=== PATIENT | female | born 1955 | race Caucasian/White ===

== ENCOUNTER 2019-02-01 12:35 | Inpatient (IN) | payer OTHER, SELFPAY ==
[2019-02-01] VITALS (22 sets, daily range): BP systolic 90–113; BP diastolic 51–78; PULSE 74–87; RESP 16–24; TEMP 36.3–36.9; O2SAT 79–95; BMI 26.6; BMI 25.7
--- NOTE | 2019-02-01 13:08 | EKG12_ITS ---
Test Reason : Blood Pressure : / mmHG Vent. Rate : 083 BPM Atrial Rate : 083 BPM P-R Int : 172 ms QRS Dur : 148 ms QT Int : 426 ms P-R-T Axes : 074 062 070 degrees QTc Int : 500 ms Normal sinus rhythm Right bundle branch block Abnormal ECG Confirmed by RUPESH HUI, RK ([id number]), video effects editor LUCAS ISSA ([id number]) on 02/04/2019 9:24:48 AM Referred By: James Wayne Confirmed By:RK GODDARD MD
--- NOTE | 2019-02-01 13:10 | RAD_ITS ---
STUDY: X-RAY CHEST REASON FOR EXAM: Female, 64 years old. SOB TECHNIQUE: Single AP portable view of the chest. COMPARISON: CT scan dated 03/09/2009. FINDINGS: Cardiac silhouette unremarkable. Pulmonary vascularity unremarkable. Aorta calcified. Right mid/lower lung airspace disease. No pleural effusions. Upper abdomen unremarkable. Osseous structures demineralized with degenerative features. No pneumothorax. RAD/Chest 1 View (Portable) IMPRESSION: Right mid/lower lung airspace disease (suspected infection; follow-up after treatment) Electronically Signed: Saul Parada DO at 13:36 EST Tel , Service support ,
[2019-02-01] MEDS: Ipratropium/Albuterol Sulfate 3 ML AMPUL.NEB INHALATION ×3 (13:21→23:29)
[2019-02-01] MEDS: MethylPREDNISolone 125 MG/2 ML Vial IV (13:35)
[2019-02-01] MEDS: Albuterol 2.5 MG/3 ML VIAL.NEB. INHALATION ×2 (13:40→13:41)
[2019-02-01 13:53] LABS: Absolute Lymphocyte Count 0.45 X10^3/uL (0.83-4.51); Absolute Neutrophil Count 13.7 X10^3/uL (2.0-7.7); Basophil# 0.04 X10^3/uL; Basophil% 0.3 % (0-1); Eosinophil# 0.09 X10^3/uL; Eosinophils% 0.6 % (0-5); Hematocrit 48.1 % (37-47); Lymphocyte # 0.45 X10^3/ul (4.0); Mean Corp Hgb Conc 33.3 g/dL (32-36); Mean Corpuscular Hgb 33.5 pg (27.0-32.0); Mean Corpuscular Volume 100.6 fL (81-99); Mean Platelet Vol. 10.8 fl (6.2-12.0); Monocyte# 0.53 X10^3/uL; Monocyte% 3.6 % (0-10); NRBC Flagged by Analyzer 0 % (0-5); Neutrophil # 13.74 X10^3/uL (2.7-7.7); POSITIVE DIFFERENTIAL YES; Platelet Count 146 K/mm3 (150-450); RBC Distribution Width CV 12.1 % (11.6-14.6); RBC Distribution Width SD 45.5 fl (35.1-43.9); Red Blood Count 4.78 M/mm3 (4.2-5.4); White Blood Count 14.9 K/mm3 (4.4-11.0)
[2019-02-01 14:09] LABS: Anion Gap 5 (5-15); BUN 19 mg/dL (7-18); BUN/Creat Ratio 23.3 RATIO (10-20); Calcium,Total 9.5 mg/dL (8.5-10.1); Chloride 93 mmol/L (98-107); Creatinine, Serum 0.82 mg/dL (0.55-1.02); EST Glomerular Filtration Rate 76 mL/min (>60); Est Glom Filt Rate - Afr Amer 91 mL/min (>60); Glucose 121 mg/dL (74-106); Potassium 2.8 mmol/L (3.5-5.1); Sodium Level 135 mmol/L (136-145)
[2019-02-01 14:10] LABS: Differential Indicated SCAN CRITERIA MET
[2019-02-01 14:19] LABS: Differential Comment SCANNED
--- NOTE | 2019-02-01 15:27 | ED.VISSUMM ---
- ER Visit Summary Date of Service: 02/01/19 Chief Complaint: Cough, short of breath and hypoxic the urgent care History of Present Illness: The patient is a 64 F history of COPD and hypertension. Not on home oxygen. Patient states has been short of breath for the last 5 days with a nonproductive cough. No fever or chills. No chest pain. No hemoptysis. She was seen in urgent care earlier today had a pulse ox between 70 and 80 and they sent her to the emergency department to be evaluated. They did treat her with albuterol and Decadron there. Physical Examination: Initial while vital signs blood pressure 104/78 temperature 98.4 heart rate 86 respirations 18 pulse ox 79% on room air consistent with hypoxia. HEENT exam unremarkable. Moist mucous membranes. Neck nontender no JVD, no lymphadenopathy. Lungs prolonged expiratory phase throughout. Wheezing throughout. Primarily expiratory and diminished in the right base. Heart regular rhythm no murmur rate about 85. Abdomen soft nontender normal bowel sounds without peritoneal signs. Patient is moving all 4 extremities. Calves are nontender without edema or cords. Neurologically she is awake alert with no focal motor deficits. Test Results: Chest x-ray portable 1 view shows a right lower lobe pneumonia. EKG sinus rhythm rate 83 with no acute signs of ischemia. Also a right bundle branch block. White count elevated at 14.9. Hemoglobin 16 hematocrit 48. No bands. Electrolytes sodium 135. Potassium was 5.8. BUN 19 creatinine 0.8. Gap of 5. Troponin 0 0.042. Due to the patient's pneumonia on chest x-ray I added a lactic acid. Blood cultures x2. She will be started on IV Rocephin and Zithromax. And given 2 L of normal saline. Emergency Department Course and Treatment: Patient has an obvious exacerbation of COPD. After chest x-ray shows a right lower lobe pneumonia also. Blood cultures and lactic acid also be obtained for consideration of sepsis. Treatment Plan: 2 L normal saline. Blood cultures. IV Rocephin and IV Zithromax. Hospitalist on page for admission. You also be treated with IV potassium and p.o. potassium. Disposition: Admission Impression: Acute right lower lobe pneumonia Acute exacerbation of COPD Acute hypoxia. Acute hypokalemia This note was generated with [employer] software. It may contain incorrect words, spelling, and punctuation that were not noted in review of the chart prior to signing ED Disposition - Plan for ED Patient: Referrals: Aki Patterson MD [Primary Care Provider] -
[2019-02-01] MEDS: Ceftriaxone 1 GM/50 ML BAG IV (16:02)
[2019-02-01] MEDS: 0.9% Normal Saline 1,000 ML 999 ML IV (16:02)
[2019-02-01] MEDS: Potassium Chloride 10mEq/100mL 10 MEQ/100 ML IV.SOLN. 100 MEQ IV BOLUS ×2 (16:03→17:11)
--- NOTE | 2019-02-01 16:50 | HP.PCM_ITS ---
History of Present Illness Date of Admission: 02/01/19 Chief Complaint: Shortness of breath The patient is a 64 year old F with a PMH as below who presents with shortness of breath and a productive cough since . She says that she is just been feeling cold and feverish and coughing and not eating or drinking very well and just overall has not felt well. She presented to the ER today because she went to an urgent care since she had not been getting any better and they found that she was hypoxic in the 70s. They sent her to the ER and she was placed on oxygen. She is not on any home oxygen despite having COPD. She is feeling a little bit better today after fluids and antibiotics. She was also found to have a potassium of 2.8 and has been replaced. She does have a leukocytosis of 14.9 and at 1 point she was tachypneic to 20 therefore meeting criteria for sepsis. She denies any lightheadedness, or dizziness. There is been no sick contacts that she is aware of. Lactic acid of 1.0 Past Medical History Allergies No Known Allergies Allergy (Verified 02/01/19 12:42) Home Medications: Ambulatory Orders Medication Instructions Recorded Albuterol Sulfate [Ventolin Hfa] 1 - 2 puff INHALATION Q4H PRN 02/01/19 Carvedilol 12.5 mg PO BID 02/01/19 Ipratropium/Albuterol Sulfate 3 ml INHALATION Q6H.RT PRN 02/01/19 [Duoneb] Lisinopril/Hydrochlorothiazide 1 tab PO DAILY 02/01/19 [Lisinopril-Hctz 20-25 mg Tab] Lovastatin 40 mg PO DAILY 02/01/19 Surgical History: cholecystectomy, hysterectomy Smoking Status: Light Smoker (<10/day) Tobacco Use: Cigarettes Alcohol: None Drugs: None - *Family History Maternal History Items: Heart Disease Paternal History Items: Unknown Review of Systems Constitutional: Reports: Chills, Fever, Fatigue HEENT: Denies: Head Aches, Sinus Congestion, Sinus Drainage Cardiovascular: Denies: Chest Pain, Palpitations Respiratory: Reports: Cough, Sputum production. Denies: Shortness of breath at rest Gastrointestinal: Denies: Abdominal Pain, Nausea, Vomiting Genitourinary: Denies: Dysuria Musculoskeletal: Denies: Joint Pain, Joint Tenderness Skin: Denies: Rash, Wounds Neurological: Denies: Numbness, Tingling, Focal weakness Psychiatric: Denies: Anxiety, Depression Hematologic/ Lymphatic: Denies: Easy Bruising, Easy Bleeding VTE Information - Inpt Only VTE Present on Admission: No - Physical Exam Vitals/I&O's: Vital Signs Temp Pulse Resp BP Pulse Ox 98.4 F 79 22 H 104/63 91 02/01/19 16:30 02/01/19 16:30 02/01/19 16:30 02/01/19 16:30 02/01/19 16:30 Oxygen Flow Rate (L/min) 5 Oxygen Delivery Method Room Air Weight: 131 lb 9.855 oz Body Mass Index (BMI) 25.7 Intake and Output for Last 24 Hours 01/30/19 01/31/19 02/01/19 23:59 23:59 23:59 Intake Total 666.05 / 666.05 Balance 666.05 / 666.05 General: Alert, Oriented x3, Cooperative, No apparent distress HEENT: Atraumatic, PERRLA, EOMI, Normocephalic Oral: Dry Mucosa Neck: Supple, No JVD Lungs: Normal air movement, No rhonchi, No rales, Diminished - In the right lung base, Wheezes - Slight wheezing on the left Cardiovascular: Regular rate, Regular Rhythm, Normal S1, Normal S2, No murmurs Abdomen: Soft, Non Tender, Non-Distended, No Hepato-splenomegaly Extremities: No edema, Capillary Refill Less than 3 Seconds Skin: No rashes, No breakdown Neurological: Neuro grossly intact, Sensory exam intact to light touch and pain Psych/Mental Status: Normal Affect, Appropriate Laboratory Results 02/01/19 13:35: WBC 14.9 H, RBC 4.78, Hgb 16.0 H, Hct 48.1 H, MCV 100.6 H, MCH 33.5 H, MCHC 33.3, RDW Std Deviation 45.5 H, RDW Coeff of [place] 12.1, Plt Count 146 L, MPV 10.8, Immature Gran % (Auto) 0.500, Neut % (Auto) 92.0 H, Lymph % (Auto) 3.0 L, [place] % (Auto) 3.6, Eos % (Auto) 0.6, Baso % (Auto) 0.3, Absolute Neuts (auto) 13.7 H, Absolute Lymphs (auto) 0.45 L, Nucleated RBC % 0, Differential Comment SCANNED 02/01/19 13:35: Sodium 135 L, Potassium 2.8 L, Chloride 93 L, Carbon Dioxide 37.0 H, Anion Gap 5, BUN 19 H, Creatinine 0.82, Estim Creat Clear Calc 51.10, Est GFR (MDRD) Af Amer 91, Est GFR (MDRD) Non-Af 76, BUN/Creatinine Ratio 23.3 H , Glucose 121 H, Calcium 9.5, Troponin I 0.042 02/01/19 15:43: Lactic Acid 1.0 Current Medications Acetaminophen (Tylenol) 650 mg PO Q6H PRN PRN PRN Reason: Pain Score 1-3/Temp > 100.7 F Albuterol/Ipratropium (Duoneb) 3 ml INHALATION Q4HWA.RT [facility] Enoxaparin Sodium (Lovenox) 40 mg SC DAILY [facility] Glucagon () 1 mg IM .X1 PRN PRN Reason: Hypoglycemia Potassium Chloride () 10 meq in 100 mls @ 100 mls/hr IV BOLUS Q1H [facility] Stop: 02/01/19 17:44 Last Admin: 02/01/19 16:03 Dose: 100 mls/hr Documented by: Sodium Chloride () 1,000 mls @ 100 mls/hr IV .Q10H [facility] Ceftriaxone Sodium 2 gm/ (Sodium Chloride) 50 mls @ 100 mls/hr IV Q24 [facility] Sodium Chloride () 250 mls @ 15 mls/hr IV .[id number] PRN PRN Reason: Saline Flush Sodium Chloride () 250 mls @ 15 mls/hr IV .[id number] PRN PRN Reason: Additional IVPB Infusion Azithromycin 500 mg/ Dextrose 255 mls @ 250 mls/hr IV Q24 [facility] Dextrose (Dextrose 10%-Water) 250 mls @ 999 mls/hr IV .Q16M PRN; Protocol PRN Reason: HYPOGLYCEMIA Influenza Virus Vaccine Quadrival (Flucelvax /Fluzone ) 0.5 ml IM .ONCE ONE Stop: 02/02/19 10:01 Prednisone () 40 mg PO DAILY@0800 [facility] Sodium Chloride () 10 - 40 ml IV UD PRN PRN Reason: SALINE FLUSH Assessment/Plan 1. Sepsis secondary to right lower lobe pneumonia or gram-positive organism/acute hypoxic respiratory failure secondary to pneumonia and possible COPD exacerbation -Continue with Rocephin and azithromycin -Sputum cultures and blood cultures are pending -Legionella and strep urine antigens are also pending -He did receive steroids in the ER and will place her on prednisone daily -Continue with duo nebs 2. HTN/HLD -Blood pressures been on the low end and will hold her blood pressure medications -Continue with lovastatin 3. Hypokalemia -Potassium was 2.8 on admission, will check magnesium and phosphorus in the morning -She was given 60 mEq p.o. in the ER as well as 20 mEq IV -We will recheck in a.m. VTE: Lovenox Code Visit Inpatient E&M: 12296 Init Hosp L3
[2019-02-01] MEDS: 0.9% Normal Saline 1,000 ML 100 ML IV (17:11)
[2019-02-02] VITALS (17 sets, daily range): BP systolic 99–127; BP diastolic 54–76; PULSE 75–90; RESP 18–20; TEMP 36.3–36.7; O2SAT 90–96
[2019-02-02] MEDS: 0.9% Normal Saline 1,000 ML 100 ML IV ×2 (03:26→15:18)
[2019-02-02] MEDS: Ipratropium/Albuterol Sulfate 3 ML AMPUL.NEB INHALATION ×6 (03:59→23:04)
[2019-02-02 05:18] LABS: Absolute Lymphocyte Count 0.44 X10^3/uL (0.83-4.51); Absolute Neutrophil Count 11.4 X10^3/uL (2.0-7.7); Basophil# 0.02 X10^3/uL; Basophil% 0.2 % (0-1); Differential Indicated SCAN CRITERIA MET; Eosinophil# 0.08 X10^3/uL; Eosinophils% 0.7 % (0-5); Hematocrit 44.2 % (37-47); Hemoglobin 15.1 g/dL (12.0-15.0); Lymphocyte # 0.44 X10^3/ul (4.0); Lymphocyte % 3.6 % (19-41); Mean Corp Hgb Conc 34.2 g/dL (32-36); Mean Corpuscular Hgb 35.3 pg (27.0-32.0); Mean Corpuscular Volume 103.3 fL (81-99); Monocyte# 0.23 X10^3/uL; Monocyte% 1.9 % (0-10); NRBC Flagged by Analyzer 0 % (0-5); Neutrophil # 11.36 X10^3/uL (2.7-7.7); Neutrophil % 92.9 % (47-70); POSITIVE DIFFERENTIAL YES; Platelet Count 158 K/mm3 (150-450); RBC Distribution Width CV 12.3 % (11.6-14.6); RBC Distribution Width SD 45.8 fl (35.1-43.9); Red Blood Count 4.28 M/mm3 (4.2-5.4); White Blood Count 12.2 K/mm3 (4.4-11.0)
[2019-02-02 05:38] LABS: Anion Gap 2 (5-15); BUN 27 mg/dL (7-18); BUN/Creat Ratio 29.7 RATIO (10-20); Chloride 100 mmol/L (98-107); Creatinine, Serum 0.91 mg/dL (0.55-1.02); EST Glomerular Filtration Rate 67 mL/min (>60); Est Glom Filt Rate - Afr Amer 81 mL/min (>60); Estimated Creatinine Clearance 46.04 ml/min; Glucose 199 mg/dL (74-106); Magnesium 1.6 mg/dL (1.6-2.6); Potassium 3.4 mmol/L (3.5-5.1); Sodium Level 137 mmol/L (136-145)
[2019-02-02 05:41] LABS: Phosphorus 2.4 mg/dL (2.5-4.9)
[2019-02-02 06:32] LABS: Differential Comment SCANNED
[2019-02-02] MEDS: predniSONE 20 MG Tablet 40 MG PO (07:25)
[2019-02-02] MEDS: Enoxaparin 40 MG/0.4 ML Syringe SC (08:19)
--- NOTE | 2019-02-02 10:34 | PN_ITS ---
Subjective: Feeling a little bit better, still on oxygen Vitals/I&O's: Vital Signs Temp Pulse Resp BP Pulse Ox 98.0 F 75 18 104/63 92 02/02/19 09:30 02/02/19 09:30 02/02/19 09:30 02/02/19 09:30 02/02/19 09:30 Oxygen Flow Rate (L/min) 4.5 Oxygen Delivery Method Nasal Cannula Weight: 131 lb 9.855 oz Body Mass Index (BMI) 25.7 Intake and Output for Last 24 Hours 01/31/19 02/01/19 02/02/19 23:59 23:59 23:59 Intake Total 1321.05 / 1471.05 1304 / 1304 Output Total 300 / 300 Balance 1321.05 / 1471.05 1004 / 1004 General: Alert, Oriented x3, Cooperative, No apparent distress HEENT: Atraumatic, PERRLA, EOMI, Normocephalic Oral: Moist mucosa Neck: Supple, No JVD Lungs: Normal air movement, No rhonchi, No rales, Diminished - In the right lung base, Wheezes improved Cardiovascular: Regular rate, Regular Rhythm, Normal S1, Normal S2, No murmurs Abdomen: Soft, Non Tender, Non-Distended, No Hepato-splenomegaly Extremities: No edema, Capillary Refill Less than 3 Seconds Skin: No rashes, No breakdown Neurological: Neuro grossly intact, Sensory exam intact to light touch and pain Psych/Mental Status: Normal Affect, Appropriate Microbiology Past 72 Hours 02/01/19 15:34 Blood Culture (Wb) - Left Forearm Blood Culture - Preliminary 02/01/19 17:10 Urine, Clean Catch Streptococcus pneumoniae Antigen (M - Final 02/01/19 17:10 Urine, Clean Catch Legionella Antigen - Final Laboratory Results 02/01/19 13:35: WBC 14.9 H, RBC 4.78, Hgb 16.0 H, Hct 48.1 H, MCV 100.6 H, MCH 33.5 H, MCHC 33.3, RDW Std Deviation 45.5 H, RDW Coeff of [place] 12.1, Plt Count 146 L, MPV 10.8, Immature Gran % (Auto) 0.500, Neut % (Auto) 92.0 H, Lymph % (Auto) 3.0 L, [place] % (Auto) 3.6, Eos % (Auto) 0.6, Baso % (Auto) 0.3, Absolute Neuts (auto) 13.7 H, Absolute Lymphs (auto) 0.45 L, Nucleated RBC % 0, Differential Comment SCANNED 02/01/19 13:35: Sodium 135 L, Potassium 2.8 L, Chloride 93 L, Carbon Dioxide 37.0 H, Anion Gap 5, BUN 19 H, Creatinine 0.82, Estim Creat Clear Calc 51.10, Est GFR (MDRD) Af Amer 91, Est GFR (MDRD) Non-Af 76, BUN/Creatinine Ratio 23.3 H , Glucose 121 H, Calcium 9.5, Troponin I 0.042 02/01/19 15:43: Lactic Acid 1.0 02/02/19 04:58: Sodium 137, Potassium 3.4 L, Chloride 100, Carbon Dioxide 35.0 H , Anion Gap 2 L, BUN 27 H, Creatinine 0.91, Estim Creat Clear Calc 46.04, Est GFR (MDRD) Af Amer 81, Est GFR (MDRD) Non-Af 67, BUN/Creatinine Ratio 29.7 H, Glucose 199 H, Calcium 9.0, Magnesium 1.6 02/02/19 04:58: WBC 12.2 H, RBC 4.28, Hgb 15.1 H, Hct 44.2, MCV 103.3 H, MCH 35.3 H, MCHC 34.2, RDW Std Deviation 45.8 H, RDW Coeff of [place] 12.3, Plt Count 158, MPV 11.0, Immature Gran % (Auto) 0.700, Neut % (Auto) 92.9 H, Lymph % (Auto) 3.6 L, [place] % (Auto) 1.9, Eos % (Auto) 0.7, Baso % (Auto) 0.2, Absolute Neuts (auto) 11.4 H, Absolute Lymphs (auto) 0.44 L, Nucleated RBC % 0, Differential Comment SCANNED 02/02/19 04:58: Phosphorus 2.4 L Current Medications Acetaminophen (Tylenol) 650 mg PO Q6H PRN PRN PRN Reason: Pain Score 1-3/Temp > 100.7 F Albuterol/Ipratropium (Duoneb) 3 ml INHALATION Q4HWA.RT [facility] Last Admin: 02/02/19 06:52 Dose: 3 ml Documented by: Atorvastatin Calcium (Lipitor) 10 mg PO QHS [facility] Enoxaparin Sodium (Lovenox) 40 mg SC DAILY [facility] Last Admin: 02/02/19 08:19 Dose: 40 mg Documented by: Glucagon () 1 mg IM .X1 PRN PRN Reason: Hypoglycemia Sodium Chloride () 1,000 mls @ 100 mls/hr IV .Q10H [facility] Last Admin: 02/02/19 03:26 Dose: 100 mls/hr Documented by: Ceftriaxone Sodium 2 gm/ (Sodium Chloride) 50 mls @ 100 mls/hr IV Q24 [facility] Last Infusion: 02/02/19 10:25 Dose: Infused Documented by: Sodium Chloride () 250 mls @ 15 mls/hr IV .[id number] PRN PRN Reason: Saline Flush Sodium Chloride () 250 mls @ 15 mls/hr IV .[id number] PRN PRN Reason: Additional IVPB Infusion Azithromycin 500 mg/ Dextrose 255 mls @ 250 mls/hr IV Q24 [facility] Last Admin: 02/02/19 09:36 Dose: 250 mls/hr Documented by: Dextrose (Dextrose 10%-Water) 250 mls @ 999 mls/hr IV .Q16M PRN; Protocol PRN Reason: HYPOGLYCEMIA Potassium Phosphate 30 mm/ (Sodium Chloride) 260 mls @ 42 mls/hr IV X1 ONE Stop: 02/02/19 14:41 Last Admin: 02/02/19 08:38 Dose: 42 mls/hr Documented by: Prednisone () 40 mg PO DAILY@0800 [facility] Last Admin: 02/02/19 07:25 Dose: 40 mg Documented by: Sodium Chloride () 10 - 40 ml IV UD PRN PRN Reason: SALINE FLUSH STROKE Vital Signs/Narrative: Vital Signs Temp Pulse Resp BP Pulse Ox 02/02/19 09:30 98.0 F 75 18 104/63 92 02/02/19 07:22 94 02/02/19 06:52 82 20 H 91 02/02/19 06:46 90 Medical Necessity - Tobacco Use Smoking Status: Light Smoker (<10/day) Tobacco Use: Cigarettes Assessment/Plan 1. Sepsis secondary to right lower lobe pneumonia or gram-positive organism/acute hypoxic respiratory failure secondary to pneumonia and possible COPD exacerbation -Continue with Rocephin and azithromycin -Sputum cultures and blood cultures are pending -Legionella and strep urine antigens are negative -She did receive steroids in the ER and will place her on prednisone daily -Continue with nicole goel 2. HTN/HLD -Blood pressures been on the low end and will hold her blood pressure medications -Continue with lovastatin 3. Hypokalemia -Potassium was 2.8 on admission, will check magnesium and phosphorus in the morning -She was given 60 mEq p.o. in the ER as well as 20 mEq IV -We will replace magnesium as well as potassium and phosphorus today DVT: Lovenox Code Visit Inpatient E&M: 61052 Subs Hosp L2
--- NOTE | 2019-02-02 11:06 | CASEMGMT ---
RN CM Assessment Presentation: Intro role of CM and purpose of RN CM assessment to patient in room. Pt is awake, alert and able to participate in assessment. Daughter is also in room. Demographics, PCP and Pharmacy verified. Per patient she lives at home with her daughter. Daughter is not able to drive, but is able to assist pt if needed. Pt plans to return home on dc. PCP: Dr. Gilliland Specialists: Preferred Pharmacy[facility] Insurance: [employer] Prescription Benefit: yes LNOK: Lauren Dockery, Friend Living Arrangements: lives independently with daughter. No needs identified. Transportation: drives DME: nebulizer. If Home oxygen is needed, pt will use [facility] (see green sheet front of chart) HHC: none Patient DC goals: Home DC PLAN: Home. If continues on oxygen, may need Home Oxygen testing prior to dc. Kary OROZCON RN ACM
[2019-02-02] MEDS: Atorvastatin Calcium 10 MG Tablet PO (21:39)
[2019-02-03] VITALS (15 sets, daily range): BP systolic 118–140; BP diastolic 64–82; PULSE 71–104; RESP 16–20; TEMP 36.7–37.2; O2SAT 92–98
[2019-02-03] MEDS: 0.9% Normal Saline 1,000 ML 100 ML IV (01:01)
[2019-02-03 06:42] LABS: Absolute Lymphocyte Count 1.17 X10^3/uL (0.83-4.51); Basophil# 0.04 X10^3/uL; Basophil% 0.3 % (0-1); Eosinophil# 0.02 X10^3/uL; Eosinophils% 0.2 % (0-5); Hematocrit 44.8 % (37-47); Hemoglobin 14.5 g/dL (12.0-15.0); Lymphocyte # 1.17 X10^3/ul (4.0); Lymphocyte % 8.9 % (19-41); Mean Corp Hgb Conc 32.4 g/dL (32-36); Mean Corpuscular Hgb 34.2 pg (27.0-32.0); Mean Corpuscular Volume 105.7 fL (81-99); Mean Platelet Vol. 10.6 fl (6.2-12.0); Monocyte% 4.6 % (0-10); NRBC Flagged by Analyzer 0 % (0-5); Neutrophil # 11.03 X10^3/uL (2.7-7.7); Neutrophil % 84.3 % (47-70); Platelet Count 151 K/mm3 (150-450); RBC Distribution Width CV 12.3 % (11.6-14.6); Red Blood Count 4.24 M/mm3 (4.2-5.4); White Blood Count 13.1 K/mm3 (4.4-11.0)
[2019-02-03] MEDS: Ipratropium/Albuterol Sulfate 3 ML AMPUL.NEB INHALATION ×4 (07:02→19:21)
[2019-02-03 07:03] LABS: Anion Gap 3 (5-15); BUN 18 mg/dL (7-18); BUN/Creat Ratio 31.1 RATIO (10-20); Calcium,Total 8.3 mg/dL (8.5-10.1); Chloride 106 mmol/L (98-107); Creatinine, Serum 0.58 mg/dL (0.55-1.02); EST Glomerular Filtration Rate 112 mL/min (>60); Est Glom Filt Rate - Afr Amer 136 mL/min (>60); Estimated Creatinine Clearance 72.24 ml/min; Glucose 88 mg/dL (74-106); Potassium 3.8 mmol/L (3.5-5.1); Sodium Level 142 mmol/L (136-145)
[2019-02-03] MEDS: predniSONE 20 MG Tablet 40 MG PO (08:17)
[2019-02-03] MEDS: Enoxaparin 40 MG/0.4 ML Syringe SC (09:38)
--- NOTE | 2019-02-03 10:42 | PCM.PN.HOSP ---
Subjective: Breathing better than she did when she came in, no issues overnight. Vitals/I&O's: Vital Signs Temp Pulse Resp BP Pulse Ox 98.6 F 71 16 128/64 H 93 02/03/19 05:37 02/03/19 07:02 02/03/19 07:02 02/03/19 05:37 02/03/19 07:02 Oxygen Flow Rate (L/min) 4.5 Oxygen Delivery Method Nasal Cannula Weight: 131 lb 9.855 oz Body Mass Index (BMI) 25.7 Intake and Output for Last 24 Hours 02/01/19 02/02/19 02/03/19 23:59 23:59 23:59 Intake Total 1321.05 / 1471.05 3479 / 3779 1621.67 / 1621.67 Output Total 300 / 300 Balance 1321.05 / 1471.05 3179 / 3479 1621.67 / 1621.67 General: Alert, Oriented x3, Cooperative, No apparent distress HEENT: Atraumatic, PERRLA, EOMI, Normocephalic Oral: Moist mucosa Neck: Supple, No JVD Lungs: Normal air movement, No rhonchi, No rales, Diminished - In the right lung base, Wheezes improved Cardiovascular: Regular rate, Regular Rhythm, Normal S1, Normal S2, No murmurs Abdomen: Soft, Non Tender, Non-Distended, No Hepato-splenomegaly Extremities: No edema, Capillary Refill Less than 3 Seconds Skin: No rashes, No breakdown Neurological: Neuro grossly intact, Sensory exam intact to light touch and pain Psych/Mental Status: Normal Affect, Appropriate Microbiology Past 72 Hours 02/02/19 19:12 Sputum, Expectorated/Coughed Respiratory Culture - Preliminary Culture exhibits no growth. 02/01/19 15:34 Blood Culture (Wb) - Left Forearm Blood Culture - Preliminary 02/01/19 17:10 Urine, Clean Catch Streptococcus pneumoniae Antigen (M - Final 02/01/19 17:10 Urine, Clean Catch Legionella Antigen - Final Laboratory Results 02/02/19 14:00: Troponin I < 0.015 02/03/19 05:26: WBC 13.1 H, RBC 4.24, Hgb 14.5, Hct 44.8, MCV 105.7 H, MCH 34.2 H, MCHC 32.4, RDW Std Deviation 48.0 H, RDW Coeff of [place] 12.3, Plt Count 151, MPV 10.6, Immature Gran % (Auto) 1.700 H, Neut % (Auto) 84.3 H, Lymph % (Auto) 8.9 L, [place] % (Auto) 4.6, Eos % (Auto) 0.2, Baso % (Auto) 0.3, Absolute Neuts (auto) 11.0 H, Absolute Lymphs (auto) 1.17, Nucleated RBC % 0 02/03/19 05:26: Sodium 142, Potassium 3.8, Chloride 106, Carbon Dioxide 33.0 H, Anion Gap 3 L, BUN 18, Creatinine 0.58, Estim Creat Clear Calc 72.24, Est GFR (MDRD) Af Amer 136, Est GFR (MDRD) Non-Af 112, BUN/Creatinine Ratio 31.1 H, Glucose 88, Calcium 8.3 L Current Medications Acetaminophen (Tylenol) 650 mg PO Q6H PRN PRN PRN Reason: Pain Score 1-3/Temp > 100.7 F Albuterol/Ipratropium (Duoneb) 3 ml INHALATION Q4HWA.RT [facility] Last Admin: 02/03/19 07:02 Dose: 3 ml Documented by: Atorvastatin Calcium (Lipitor) 10 mg PO QHS [facility] Last Admin: 02/02/19 21:39 Dose: 10 mg Documented by: Enoxaparin Sodium (Lovenox) 40 mg SC DAILY [facility] Last Admin: 02/03/19 09:38 Dose: 40 mg Documented by: Glucagon () 1 mg IM .X1 PRN PRN Reason: Hypoglycemia Ceftriaxone Sodium 2 gm/ (Sodium Chloride) 50 mls @ 100 mls/hr IV Q24 [facility] Last Infusion: 02/03/19 10:09 Dose: Infused Documented by: Sodium Chloride () 250 mls @ 15 mls/hr IV .[id number] PRN PRN Reason: Saline Flush Sodium Chloride () 250 mls @ 15 mls/hr IV .[id number] PRN PRN Reason: Additional IVPB Infusion Azithromycin 500 mg/ Dextrose 255 mls @ 250 mls/hr IV Q24 [facility] Last Admin: 02/03/19 10:08 Dose: 250 mls/hr Documented by: Dextrose (Dextrose 10%-Water) 250 mls @ 999 mls/hr IV .Q16M PRN; Protocol PRN Reason: HYPOGLYCEMIA Prednisone () 40 mg PO DAILY@0800 [facility] Last Admin: 02/03/19 08:17 Dose: 40 mg Documented by: Sodium Chloride () 10 - 40 ml IV UD PRN PRN Reason: SALINE FLUSH STROKE Vital Signs/Narrative: Vital Signs Pulse Resp Pulse Ox 02/03/19 07:02 71 16 93 Medical Necessity - Tobacco Use Smoking Status: Light Smoker (<10/day) Tobacco Use: Cigarettes Assessment/Plan 1. Sepsis secondary to right lower lobe pneumonia from gram-positive organism/acute hypoxic respiratory failure secondary to pneumonia and possible COPD exacerbation -Continue with Rocephin and azithromycin -Sputum cultures and blood cultures are pending, though preliminarily negative -Legionella and strep urine antigens are negative -She did receive steroids in the ER and will place her on prednisone daily -Continue with duo nebs -Continue with incentive spirometer and wean oxygen as able 2. HTN/HLD -Blood pressures been on the low end and will hold her blood pressure medications -Continue with lovastatin 3. Hypokalemia -Potassium was 2.8 on admission, now 3.8 -We will continue to monitor DVT: Lovenox Code Visit Inpatient E&M: 75719 Subs Hosp L2
[2019-02-03] MEDS: Acetaminophen 325 MG Tablet 650 MG PO (22:29)
[2019-02-03] MEDS: Atorvastatin Calcium 10 MG Tablet PO (22:29)
[2019-02-04] VITALS (16 sets, daily range): BP systolic 126–163; BP diastolic 70–84; PULSE 76–101; RESP 16–20; TEMP 36.4–37.1; O2SAT 80–96
[2019-02-04 06:18] LABS: BUN 19 mg/dL (7-18); Creatinine, Serum 0.65 mg/dL (0.55-1.02); EST Glomerular Filtration Rate 99 mL/min (>60); Estimated Creatinine Clearance 64.46 ml/min; Glucose 81 mg/dL (74-106)
[2019-02-04 06:19] LABS: Anion Gap 3 (5-15); BUN/Creat Ratio 29.4 RATIO (10-20); Calcium,Total 8.5 mg/dL (8.5-10.1); Chloride 106 mmol/L (98-107); Est Glom Filt Rate - Afr Amer 119 mL/min (>60); Potassium 3.8 mmol/L (3.5-5.1); Sodium Level 144 mmol/L (136-145)
[2019-02-04] MEDS: Ipratropium/Albuterol Sulfate 3 ML AMPUL.NEB INHALATION ×4 (06:52→19:02)
[2019-02-04] MEDS: Acetaminophen 325 MG Tablet 650 MG PO (07:03)
[2019-02-04] MEDS: predniSONE 20 MG Tablet 40 MG PO (09:45)
[2019-02-04] MEDS: Enoxaparin 40 MG/0.4 ML Syringe SC (09:45)
[2019-02-04] MEDS: 0.9% Saline Lock 10 ML Syringe IV ×4 (09:45→21:40)
--- NOTE | 2019-02-04 10:37 | CASEMGMT ---
BHARAT VALERO assessment: Face to Face with patient for initial transition planning/care coordination assessment. RN MARYLU introduced self and role at [facility], pt voices understanding and consents to assessment at this time. Pt is A/Ox4 at this time and answers all questions appropriately at this time. Care providers, pharmacy, and demographics verified at this time. Presentation: Cough, SOB, and nausea since last Admitting dx: Sepsis 2nd to right lower lobe pna/acute hypoxic resp failure 2nd to pna and possible COPD exacerbation PCP: Leonardo Specialists: Pt states does not currently have any specialists. Preferred Pharmacy: [facility] Insurance: [employer] Prescription Benefit: [employer] Living Will/HPOA: Pt states does not have LW/HPOA and declines info at this time. LNOK: Lauren Dockery, friend Living Arrangements: Pt states lives with her disabled 30yo granddaughter whom she cares for in a 2 story home and states no concerns at home at this time. Pt states is independent with ADL's. Transportation: Pt states drives self and states no transportation concerns at this time. DME/HHC: Pt states no current DME or need for any at this time. Pt states no HHC or SNF in the past. Pt states no concerns with going home at time of discharge. 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 Pt states quit smoking 3 weeks ago and states does not drink ETOH. Pt states no further concerns/needs at this time. CM to follow for home oxygen testing and any further discharge planning/needs. Advised pt to ask for CM if any further questions/concerns/needs arise, voices understanding. Pt Goal: Home Plan: Home, pending home oxygen testing. [place] BHARAT VALERO
--- NOTE | 2019-02-04 12:38 | DCINST_ITS ---
You will use the following diet at home:: No restrictions Your food should be the consistency of: Regular Discharge Activity: Return to Normal Activity Call your doctor if you observe: Fever of 101 or Higher, Shortness of breath Allergies/Adverse Reactions: Allergies No Known Allergies Allergy (Verified 02/01/19 12:42) Medications to take at Discharge Albuterol Sulfate [Ventolin Hfa] 1 - 2 puff INHALATION Q4H PRN 02/01/19 Carvedilol 12.5 mg PO BID 02/01/19 Ipratropium/Albuterol Sulfate [Duoneb] 3 ml INHALATION Q6H.RT PRN 02/01/19 Lisinopril/Hydrochlorothiazide [Lisinopril-Hctz 20-25 mg Tab] 1 tab PO DAILY 02/01/19 Lovastatin 40 mg PO DAILY 02/01/19 Amoxicillin/Potassium Clav [Augmentin 875-125 Tablet] 1 ea PO BID #6 tab 02/04/19 Potassium Chloride [K-Dur] 10 meq PO DAILY #30 tab 02/04/19 Prednisone 4 tab PO DAILY #20 tab.ds.pk 02/04/19 The following prescriptions were given: Amoxicillin/Potassium Clav [Augmentin 875-125 Tablet] 1 ea PO BID #6 tab Transmission Status: Pending to [id number] Potassium Chloride [K-Dur] 10 meq PO DAILY #30 tab Transmission Status: Pending to [id number] Prednisone 4 tab PO DAILY #20 tab.ds.pk Transmission Status: Pending to [id number] Primary Care Physician: Aki Patterson MD [Primary Care Provider] - Within 1 Week Test Results: Test results from this visit will be discussed in further detail at your follow- up appointment, if applicable. Please Follow Up With: Aki Patterson MD Please Follow Up With: Alfredo Moseley MD - Pulmonology When: 4-6 weeks. Proposed Discharge Date: 02/04/19
--- NOTE | 2019-02-04 12:40 | DS.PCM_ITS ---
Discharge Date and Diagnosis Date of Admission: 02/01/19 Date of Discharge: 02/04/19 - Primary Discharge Diagnosis Sepsis Acute COPD exacerbation Pneumococcal pneumonia, suspected hypokalemia Hospital Course and Treatment Imaging Results: Clinical Impression(s) from Imaging Studies Chest X-Ray 02/01/19 13:10 IMPRESSION: Right mid/lower lung airspace disease (suspected infection; follow-up after treatment) Electronically Signed: Saul Pizarrorocío, at 13:36 EST Tel , Service support , Operations: None Procedures: None Summary of Care Provided: The patient is a 64 year old F presents with shortness of breath for several days prior to arrival. Found to be hypoxic in the 70% range. Started on steroids, antibiotics and bronchodilators. Patient slowly improved, though still required oxygen. Today, patient was 80% on room air at rest. Therefore, she will require oxygen at home at 3 liters/min. Patient will be discharged with 3 days of Augmentin to complete a 7 days course of antibiotics. Patient will need to follow up with pulmonology. Patient was hypokalemic on arrival at 2.8. This is likely due to HCTZ. The HCTZ can be resumed, but patient will be place on K-Dur 10 MeQ/day. She will need her potassium checked periodically.[] - Physical Exam Vitals/I&O's: Vital Signs Temp Pulse Resp BP Pulse Ox 36.4 C L 85 16 142/76 H 80 02/04/19 09:30 02/04/19 11:10 02/04/19 11:10 02/04/19 09:30 02/04/19 12:00 Oxygen Flow Rate (L/min) 3 Oxygen Delivery Method Nasal Cannula Weight: 59.7 kg Body Mass Index (BMI) 25.7 Intake and Output for Last 24 Hours 02/02/19 02/03/19 02/04/19 23:59 23:59 23:59 Intake Total 3479 / 3779 3028.34 / 3028.34 545 / 545 Output Total 300 / 300 Balance 3179 / 3479 3028.34 / 3028.34 545 / 545 General: Alert, Cooperative, No apparent distress HEENT: Atraumatic, Normocephalic Oral: Moist Mucosa, No Gingival or Mucosal Lesions/ Ulcerations Neck: No Nodes, Trachea Midline Lungs: Clear to auscultation, Diminished Cardiovascular: Regular rate, Regular Rhythm, Normal S1, Normal S2 Abdomen: Bowel Sounds Present, Soft, Non Tender, Non-Distended Extremities: No edema, No Calf Tenderness Psych/Mental Status: Normal Affect, Appropriate Microbiology Past 72 Hours 02/02/19 19:12 Sputum, Expectorated/Coughed Gram Stain - Final 02/02/19 19:12 Sputum, Expectorated/Coughed Respiratory Culture - Preliminary Appears to be normal respiratory lexii. Further studies to follow. 02/01/19 15:43 Blood Culture (Wb) - Left Hand Blood Culture - Preliminary No growth in 48 hours. 02/01/19 15:34 Blood Culture (Wb) - Left Forearm Blood Culture - Preliminary No growth in 48 hours. 02/01/19 17:10 Urine, Clean Catch Streptococcus pneumoniae Antigen (M - Final 02/01/19 17:10 Urine, Clean Catch Legionella Antigen - Final Laboratory Results 02/04/19 05:25: Sodium 144, Potassium 3.8, Chloride 106, Carbon Dioxide 35.0 H, Anion Gap 3 L, BUN 19 H, Creatinine 0.65, Estim Creat Clear Calc 64.46, Est GFR (MDRD) Af Amer 119, Est GFR (MDRD) Non-Af 99, BUN/Creatinine Ratio 29.4 H, Glucose 81, Calcium 8.5 Current Medications Acetaminophen (Tylenol) 650 mg PO Q6H PRN PRN PRN Reason: Pain Score 1-3/Temp > 100.7 F Last Admin: 02/04/19 07:03 Dose: 650 mg Documented by: Albuterol/Ipratropium (Duoneb) 3 ml INHALATION Q4HWA.RT [facility] Last Admin: 02/04/19 11:10 Dose: 3 ml Documented by: Atorvastatin Calcium (Lipitor) 10 mg PO QHS [facility] Last Admin: 02/03/19 22:29 Dose: 10 mg Documented by: Enoxaparin Sodium (Lovenox) 40 mg SC DAILY [facility] Last Admin: 02/04/19 09:45 Dose: 40 mg Documented by: Glucagon () 1 mg IM .X1 PRN PRN Reason: Hypoglycemia Ceftriaxone Sodium 2 gm/ (Sodium Chloride) 50 mls @ 100 mls/hr IV Q24 [facility] Last Infusion: 02/04/19 10:15 Dose: Infused Documented by: Sodium Chloride () 250 mls @ 15 mls/hr IV .[id number] PRN PRN Reason: Saline Flush Sodium Chloride () 250 mls @ 15 mls/hr IV .[id number] PRN PRN Reason: Additional IVPB Infusion Azithromycin 500 mg/ Dextrose 255 mls @ 250 mls/hr IV Q24 [facility] Last Infusion: 02/04/19 11:41 Dose: Infused Documented by: Dextrose (Dextrose 10%-Water) 250 mls @ 999 mls/hr IV .Q16M PRN; Protocol PRN Reason: HYPOGLYCEMIA Prednisone () 40 mg PO DAILY@0800 [facility] Last Admin: 02/04/19 09:45 Dose: 40 mg Documented by: Sodium Chloride () 10 - 40 ml IV UD PRN PRN Reason: SALINE FLUSH Last Admin: 02/04/19 10:40 Dose: 20 ml Documented by: Discharge Diet: No Restrictions Discharge Activity: Return to Normal Activity Call your doctor if you observe: Fever of 101 or Higher, Shortness of breath Home Medications: Medications to take at Discharge Albuterol Sulfate [Ventolin Hfa] 1 - 2 puff INHALATION Q4H PRN 02/01/19 Carvedilol 12.5 mg PO BID 02/01/19 Ipratropium/Albuterol Sulfate [Duoneb] 3 ml INHALATION Q6H.RT PRN 02/01/19 Lisinopril/Hydrochlorothiazide [Lisinopril-Hctz 20-25 mg Tab] 1 tab PO DAILY 02/01/19 Lovastatin 40 mg PO DAILY 02/01/19 Amoxicillin/Potassium Clav [Augmentin 875-125 Tablet] 1 ea PO BID #6 tab 02/04/19 Potassium Chloride [K-Dur] 10 meq PO DAILY #30 tab 02/04/19 Prednisone 4 tab PO DAILY #20 tab.ds.pk 02/04/19 Following Prescrptions Were Given to Patient: Amoxicillin/Potassium Clav [Augmentin 875-125 Tablet] 1 ea PO BID #6 tab Transmission Status: [id number] Potassium Chloride [K-Dur] 10 meq PO DAILY #30 tab Transmission Status: [id number] Prednisone 4 tab PO DAILY #20 tab.ds.pk Transmission Status: [id number] Primary Care Physician: Aki Patterson MD [Primary Care Provider] - Within 1 Week Please Follow Up With: Aki Patterson MD Please Follow Up With: Alfredo Moseley MD - Pulmonology When: 4-6 weeks. Disposition: Home Minutes spent on discharge:: 35 Patient Condition:: Fair Medical Necessity - Tobacco Use Smoking Status: Light Smoker (<10/day) Tobacco Use: Cigarettes Meaningful Use Info Meaningful Use Diagnoses (Choose all that apply): None applicable Code Visit Inpatient E&M: 75761 Disch Hosp
--- NOTE | 2019-02-04 13:41 | PCM.HOSP.N ---
Hospitalist Note Patient dropped down to 80% and then required 8 L of oxygen to get back to normal oxygen levels. Will hold off on discharge today and discontinue the prednisone and start the patient on methylprednisolone. Continue with antibiotics as well as bronchodilators. Will reevaluate patient the to see if she may be ready for discharge and then. Please refer to the discharge summary dictated today for physical exam and other information. Code Visit Inpatient E&M: 28229 Subs Hosp L2 - Disregard discharge coding for today.
[2019-02-04] MEDS: Atorvastatin Calcium 10 MG Tablet PO (21:40)
[2019-02-05] VITALS (12 sets, daily range): BP systolic 139–175; BP diastolic 76–94; PULSE 71–100; RESP 18–20; TEMP 36.4–37.1; O2SAT 91–94
[2019-02-05] MEDS: Sodium Chloride 0.65% 1 SPRAY SPRAY.BTL 2 SPRAY NASAL (03:49)
[2019-02-05] MEDS: 0.9% Saline Lock 10 ML Syringe IV ×4 (06:26→20:00)
[2019-02-05] MEDS: Ipratropium/Albuterol Sulfate 3 ML AMPUL.NEB INHALATION ×4 (06:28→18:59)
[2019-02-05] MEDS: Enoxaparin 40 MG/0.4 ML Syringe SC (09:38)
[2019-02-05] MEDS: Carvedilol 12.5 MG Tablet PO ×2 (09:38→19:59)
--- NOTE | 2019-02-05 10:36 | CT_ITS ---
STUDY: CTA CHEST REASON FOR EXAM: Female, 64 years old. HYPOXIA. PNEUMONIA. COPD RADIATION DOSAGE (If Supplied By Facility): CTDIvol = ( 11.71 ) mGy, DLP = ( 371.15 ) mGycm TECHNIQUE: The examination was performed with the intravenous administration of 75 ML ISOVUE 370. Post-processing of the angiographic images was performed, with multiplanar reformation and 3D reconstruction. Individualized dose optimization techniques were used for this CT. COMPARISON: None. FINDINGS: Normal enhancement of the main pulmonary artery and right and left pulmonary arteries. Normal enhancement of the bilateral peripheral pulmonary arteries. There is no demonstrated pulmonary embolism. Normal thoracic aorta and visualized great vessels. There is no demonstrated aortic dissection. Normal heart and pericardium. Normal mediastinum. Normal hilar regions. Normal visualized trachea and bronchi. The lungs are well expanded. Ill-defined airspace opacities are seen in the right middle lobe and right lower lobe suggesting pneumonia. Small bilateral pleural effusions are noted. Normal chest wall structures. Normal osseous structures. Normal visualized upper abdomen. CT/CTA Chest W/WO Contrast IMPRESSION: Right middle lobe and right lower lobe pneumonia. No demonstrated pulmonary embolism or arterial dissection. Electronically Signed: Hugo Broussard, at 11:50 EST Tel , Service support ,
--- NOTE | 2019-02-05 13:18 | CASEMGMT ---
Green sheet on chart for home oxygen. Jessica NICHOLSON CM
--- NOTE | 2019-02-05 14:43 | PN_ITS ---
Reason for Visit: Pneumonia Subjective: Breathing better. Vitals/I&O's: Vital Signs Temp Pulse Resp BP Pulse Ox 36.6 C 88 20 H 148/94 H 94 02/05/19 09:30 02/05/19 11:22 02/05/19 11:22 02/05/19 09:30 02/05/19 09:30 Oxygen Flow Rate (L/min) [ 8 AMBULATION with Oxygen] Oxygen Flow Rate (L/min) 4 Oxygen Delivery Method Nasal Cannula Weight: 59.7 kg Body Mass Index (BMI) 25.7 Intake and Output for Last 24 Hours 02/03/19 02/04/19 02/05/19 23:59 23:59 23:59 Intake Total 3028.34 / 3028.34 905 / 905 665 / 665 Balance 3028.34 / 3028.34 905 / 905 665 / 665 General: Alert, No apparent distress HEENT: Atraumatic, Normocephalic Oral: Moist Mucosa, No Gingival or Mucosal Lesions/ Ulcerations Neck: No Nodes, Trachea Midline Lungs: Clear to auscultation, Diminished Cardiovascular: Regular rate, Regular Rhythm, Normal S1, Normal S2, No murmurs Abdomen: Bowel Sounds Present, Soft, Non Tender, Non-Distended, No Hepato- splenomegaly Extremities: No edema, No Calf Tenderness Psych/Mental Status: Normal Affect, Appropriate Microbiology Past 72 Hours 02/02/19 19:12 Sputum, Expectorated/Coughed Gram Stain - Final 02/02/19 19:12 Sputum, Expectorated/Coughed Respiratory Culture - Final 02/01/19 15:43 Blood Culture (Wb) - Left Hand Blood Culture - Preliminary No growth in 48 hours. 02/01/19 15:34 Blood Culture (Wb) - Left Forearm Blood Culture - Preliminary No growth in 48 hours. Current Medications Acetaminophen (Tylenol) 650 mg PO Q6H PRN PRN PRN Reason: Pain Score 1-3/Temp > 100.7 F Last Admin: 02/04/19 07:03 Dose: 650 mg Documented by: Albuterol/Ipratropium (Duoneb) 3 ml INHALATION Q4HWA.RT [facility] Last Admin: 02/05/19 11:22 Dose: 3 ml Documented by: Atorvastatin Calcium (Lipitor) 10 mg PO QHS [facility] Last Admin: 02/04/19 21:40 Dose: 10 mg Documented by: Carvedilol (Coreg) 12.5 mg PO BID [facility] Last Admin: 02/05/19 09:38 Dose: 12.5 mg Documented by: Enoxaparin Sodium (Lovenox) 40 mg SC DAILY [facility] Last Admin: 02/05/19 09:38 Dose: 40 mg Documented by: Glucagon () 1 mg IM .X1 PRN PRN Reason: Hypoglycemia Hydralazine HCl (Apresoline Iv) 10 mg IV Q8H PRN PRN PRN Reason: for SBP>160 Ceftriaxone Sodium 2 gm/ (Sodium Chloride) 50 mls @ 100 mls/hr IV Q24 [facility] Last Infusion: 02/05/19 10:07 Dose: Infused Documented by: Sodium Chloride () 250 mls @ 15 mls/hr IV .[id number] PRN PRN Reason: Saline Flush Sodium Chloride () 250 mls @ 15 mls/hr IV .[id number] PRN PRN Reason: Additional IVPB Infusion Azithromycin 500 mg/ Dextrose 255 mls @ 250 mls/hr IV Q24 [facility] Last Infusion: 02/05/19 12:19 Dose: Infused Documented by: Dextrose (Dextrose 10%-Water) 250 mls @ 999 mls/hr IV .Q16M PRN; Protocol PRN Reason: HYPOGLYCEMIA Methylprednisolone (Solu-Medrol) 40 mg IV Q8 [facility] Last Admin: 02/05/19 13:17 Dose: 40 mg Documented by: Sodium Chloride () 10 - 40 ml IV UD PRN PRN Reason: SALINE FLUSH Last Admin: 02/05/19 13:16 Dose: 20 ml Documented by: Sodium Chloride ([place] Nasal [place]) 2 spray NASAL BID PRN PRN PRN Reason: NASAL DRYNESS Last Admin: 02/05/19 03:49 Dose: 2 sprays Documented by: STROKE Vital Signs/Narrative: Vital Signs Pulse Resp 02/05/19 11:22 88 20 H Medical Necessity - Tobacco Use Smoking Status: Light Smoker (<10/day) Tobacco Use: Cigarettes Assessment/Plan 1. pneumonia, suspected pneumococcal * on azithro and ctx 2. AECOPD * continue steroids and BDs * follow up with pulmonology as outpt 3. Acute hypoxic respiratory insufficiency * CTA showed no PE * likely 2/2 to above * wean oxygen as tolerated. 4.VTE proph: LMWH Code Visit Inpatient E&M: 73246 Subs Hosp L2
[2019-02-05] MEDS: Atorvastatin Calcium 10 MG Tablet PO (19:59)
[2019-02-05] MEDS: guaiFENesin 600 MG Tablet PO (19:59)
--- NOTE | 2019-02-05 20:03 | NURSING ---
Pt requesting to have meds given early.
[2019-02-06] VITALS (10 sets, daily range): BP systolic 136–152; BP diastolic 77–98; PULSE 64–79; RESP 14–20; TEMP 36.6–36.8; O2SAT 84–98
[2019-02-06] MEDS: 0.9% Saline Lock 10 ML Syringe IV ×4 (05:07→13:47)
[2019-02-06] MEDS: Ipratropium/Albuterol Sulfate 3 ML AMPUL.NEB INHALATION ×2 (07:11→10:44)
[2019-02-06] MEDS: Carvedilol 12.5 MG Tablet PO (08:50)
[2019-02-06] MEDS: Enoxaparin 40 MG/0.4 ML Syringe SC (08:50)
[2019-02-06] MEDS: guaiFENesin 600 MG Tablet PO (08:50)
--- NOTE | 2019-02-06 10:50 | PCM.PN.HOSP ---
Reason for Visit: COPD Subjective: Ambulated in the hallway without any difficulty. Vitals/I&O's: Vital Signs Temp Pulse Resp BP Pulse Ox 36.8 C 68 14 152/98 H 92 02/06/19 08:50 02/06/19 08:50 02/06/19 08:50 02/06/19 08:50 02/06/19 10:39 Oxygen Flow Rate (L/min) [ 2 AMBULATION with Oxygen] Oxygen Flow Rate (L/min) 4 Oxygen Delivery Method Nasal Cannula Weight: 59.7 kg Body Mass Index (BMI) 25.7 Intake and Output for Last 24 Hours 02/04/19 02/05/19 02/06/19 23:59 23:59 23:59 Intake Total 5 / 905 1024 / 1984 1510 / 1510 Balance 5 / 905 1024 / 1984 1510 / 1510 General: Alert, No apparent distress HEENT: Atraumatic, Normocephalic Oral: Moist Mucosa, No Gingival or Mucosal Lesions/ Ulcerations Neck: No Nodes, Trachea Midline Lungs: Clear to auscultation, Diminished Cardiovascular: Regular rate, Regular Rhythm Abdomen: Bowel Sounds Present, Soft, Non Tender, Non-Distended Microbiology Past 72 Hours 02/02/19 19:12 Sputum, Expectorated/Coughed Gram Stain - Final 02/02/19 19:12 Sputum, Expectorated/Coughed Respiratory Culture - Final 02/01/19 15:43 Blood Culture (Wb) - Left Hand Blood Culture - Preliminary No growth in 48 hours. 02/01/19 15:34 Blood Culture (Wb) - Left Forearm Blood Culture - Preliminary No growth in 48 hours. Current Medications Acetaminophen (Tylenol) 650 mg PO Q6H PRN PRN PRN Reason: Pain Score 1-3/Temp > 100.7 F Last Admin: 02/04/19 07:03 Dose: 650 mg Documented by: Albuterol/Ipratropium (Duoneb) 3 ml INHALATION Q4HWA.RT [facility] Last Admin: 02/06/19 10:44 Dose: 3 ml Documented by: Atorvastatin Calcium (Lipitor) 10 mg PO QHS [facility] Last Admin: 02/05/19 19:59 Dose: 10 mg Documented by: Carvedilol (Coreg) 12.5 mg PO BID [facility] Last Admin: 02/06/19 08:50 Dose: 12.5 mg Documented by: Enoxaparin Sodium (Lovenox) 40 mg SC DAILY [facility] Last Admin: 02/06/19 08:50 Dose: 40 mg Documented by: Glucagon () 1 mg IM .X1 PRN PRN Reason: Hypoglycemia Guaifenesin (Mucinex) 600 mg PO BID [facility] Last Admin: 02/06/19 08:50 Dose: 600 mg Documented by: Hydralazine HCl (Apresoline Iv) 10 mg IV Q8H PRN PRN PRN Reason: for SBP>160 Ceftriaxone Sodium 2 gm/ (Sodium Chloride) 50 mls @ 100 mls/hr IV Q24 [facility] Last Infusion: 02/06/19 09:19 Dose: Infused Documented by: Sodium Chloride () 250 mls @ 15 mls/hr IV .[id number] PRN PRN Reason: Saline Flush Sodium Chloride () 250 mls @ 15 mls/hr IV .[id number] PRN PRN Reason: Additional IVPB Infusion Azithromycin 500 mg/ Dextrose 255 mls @ 250 mls/hr IV Q24 [facility] Last Admin: 02/06/19 09:49 Dose: 250 mls/hr Documented by: Dextrose (Dextrose 10%-Water) 250 mls @ 999 mls/hr IV .Q16M PRN; Protocol PRN Reason: HYPOGLYCEMIA Methylprednisolone (Solu-Medrol) 40 mg IV Q8 [facility] Last Admin: 02/06/19 05:07 Dose: 40 mg Documented by: Sodium Chloride () 10 - 40 ml IV UD PRN PRN Reason: SALINE FLUSH Last Admin: 02/06/19 08:50 Dose: 10 ml Documented by: Sodium Chloride ([place] Nasal [place]) 2 spray NASAL BID PRN PRN PRN Reason: NASAL DRYNESS Last Admin: 02/05/19 03:49 Dose: 2 sprays Documented by: STROKE Vital Signs/Narrative: Vital Signs Temp Pulse Resp BP Pulse Ox Pulse Ox Pulse Ox 02/06/19 10:39 86 92 02/06/19 08:55 90 02/06/19 08:50 36.8 C 68 14 152/98 H 92 02/06/19 07:11 64 16 98 02/06/19 07:00 67 Pulse Ox 02/06/19 10:39 02/06/19 08:55 84 02/06/19 08:50 02/06/19 07:11 02/06/19 07:00 Medical Necessity - Tobacco Use Smoking Status: Light Smoker (<10/day) Tobacco Use: Cigarettes Assessment/Plan 1. pneumonia, suspected pneumococcal on azithro and ctx Augmentin on discharge 2. 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 Acute hypoxic respiratory insufficiency CTA showed no PE likely 2/2 to above wean oxygen as tolerated. 4.VTE proph: LMWH Greater than 30 minutes spent on discharge today. Code Visit Inpatient E&M: 48843 Disch Hosp
--- NOTE | 2019-02-06 11:08 | CON.PCM_ITS ---
Problem List (1) Stage 3 severe COPD by GOLD classification Status: Chronic (2) Tobacco abuse Status: Chronic (3) Hypoxemia Status: Acute Reason for Consult Date of Consultation: 02/06/19 Reason for Consultation: Hypoxia History of Present Illness: The patient is a 64 year old F, with past medical history listed below, who presented to [facility] on 02/01/2019 secondary to progressive shortness of breath over the last 5 to 7 days. Patient not reported any concomitant fever, chills, chest pain or hemoptysis, but noted worsening exercise tolerance. Patient had been seen in an urgent care and was noted to have a saturation between 70 and 80%, so was sent to the ER for evaluation. On evaluation in the ER, patient was noted to be hypoxic at 79% on room air and no tachycardia with a heart rate of 86. Chest x-ray showed a possible right- sided infiltrate. Laboratory work-up showed a hemoglobin of 16 with normal renal function and a negative troponin. Patient was initiated on IV Rocephin, Zithromax, given IV fluids and admitted to the hospital for further evaluation. Patient has remained on IV steroids throughout the hospitalization, but is still having hypoxia requiring supplemental oxygen and significant dyspnea on exertion. For this reason, a pulmonary consult was obtained. Patient reports that she feels 100% better since coming into the hospital. Patient continues to have paroxysmal type coughs that is producing clear to white sputum at this time. Patient does report that she has a long smoking h istory and actually quit approximately 1 month ago. Patient does report sick contacts. Patient has never been evaluated for heart issues to her knowledge. Patient has noted some increased lower extremity edema recently. Patient does report that she snores at baseline. Patient has never been evaluated for obstructive sleep apnea. Patient does report that she gets tired during the day, but thought this was just from getting old. 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 Review of systems otherwise negative from a constitutional, HEENT, respiratory, cardiovascular, GI, genitourinary, musculoskeletal, skin, neurologic, psychiatric and hematologic system unless stated above. Past Medical History Past Medical History (Chronic Problems): Chronic Problems Stage 3 severe COPD by GOLD classification (Chronic) Tobacco abuse (Chronic) Allergies No Known Allergies Allergy (Verified 02/01/19 12:42) Home Medications: Ambulatory Orders Medication Instructions Recorded Albuterol Sulfate [Ventolin Hfa] 1 - 2 puff INHALATION Q4H PRN 02/01/19 Carvedilol 12.5 mg PO BID 02/01/19 Ipratropium/Albuterol Sulfate 3 ml INHALATION Q6H.RT PRN 02/01/19 [Duoneb] Lisinopril/Hydrochlorothiazide 1 tab PO DAILY 02/01/19 [Lisinopril-Hctz 20-25 mg Tab] Lovastatin 40 mg PO DAILY 02/01/19 Amoxicillin/Potassium Clav 1 ea PO BID #6 tab 02/04/19 [Augmentin 875-125 Tablet] Potassium Chloride [K-Dur] 10 meq PO DAILY #30 tab 02/04/19 Prednisone 4 tab PO DAILY #20 tab.ds.pk 02/04/19 Surgical History: cholecystectomy, hysterectomy Smoking Status: Light Smoker (<10/day) Tobacco Use: Cigarettes Alcohol: None Drugs: None - *Family History Maternal History Items: Heart Disease Paternal History Items: Unknown Review of Systems Comment: See HPI Patient Problems: Active and Suspected Problems Hypoxemia (Acute) Objective: CTA chest was personally reviewed from 02/05/2019 and was grossly unremarkable. Patient does have some small pleural effusions noted with some atelectasis noted in the right middle and right lower lobe. No significant mediastinal lymphadeno kaye is appreciated. Mild apical emphysematous changes noted. No echocardiogram is available for review. Complete PFT (06/18/2014): Irreversible moderately severe obstructive ventilatory defect with a symmetric reduction in diffusing capacity (FVC 95%, FEV1 59%, TLC 104%, DLCO 60%) - Physical Exam Vitals/I&O's: Vital Signs Temp Pulse Resp BP Pulse Ox 36.8 C 68 14 152/98 H 92 02/06/19 08:50 02/06/19 08:50 02/06/19 08:50 02/06/19 08:50 02/06/19 10:39 Oxygen Flow Rate (L/min) [ 2 AMBULATION with Oxygen] Oxygen Flow Rate (L/min) 4 Oxygen Delivery Method Nasal Cannula Weight: 59.7 kg Body Mass Index (BMI) 25.7 Intake and Output for Last 24 Hours 02/04/19 02/05/19 02/06/19 23:59 23:59 23:59 Intake Total 905 / 905 1025 / 1985 1510 / 1510 Balance 1024 1510 / 1510 General: Alert, Oriented x3, Cooperative, - - Mild conversational dyspnea. Appears older than stated age. HEENT: Atraumatic, PERRLA, EOMI, Normocephalic, - - No scleral icterus or injection noted Oral: Moist Mucosa, No Gingival or Mucosal Lesions/ Ulcerations, - - Fair dentition. Neck: Supple, No JVD, No Nodes, Trachea Midline Lungs: No rhonchi, No wheeze, No rales, Diminished, - - Symmetric expansion. No dullness to percussion. Cardiovascular: Regular rate, Regular Rhythm, Normal S1, Normal S2, No murmurs, No rub noted, No Gallop Abdomen: Bowel Sounds Present, Soft, Non Tender, Non-Distended Extremities: No clubbing, No cyanosis, Edema - Trace lower extremities Skin: No rashes, No breakdown Musculoskeletal: No Tenderness to Palpation of Joints or Extremities, No Muscle Wasting Lymphatic: No Cervical, Supraclavicular, or Inguinal Adenopathy Neurological: Cranial nerves II-XII grossly intact, Neuro grossly intact, Motor Exam 5/5 strength throughout Psych/Mental Status: Alert and oriented to time, place, person, mood and affect Microbiology Past 72 Hours 02/02/19 19:12 Sputum, Expectorated/Coughed Gram Stain - Final 02/02/19 19:12 Sputum, Expectorated/Coughed Respiratory Culture - Final 02/01/19 15:43 Blood Culture (Wb) - Left Hand Blood Culture - Preliminary No growth in 48 hours. 02/01/19 15:34 Blood Culture (Wb) - Left Forearm Blood Culture - Preliminary No growth in 48 hours. Current Medications Acetaminophen (Tylenol) 650 mg PO Q6H PRN PRN PRN Reason: Pain Score 1-3/Temp > 100.7 F Last Admin: 02/04/19 07:03 Dose: 650 mg Documented by: Albuterol/Ipratropium (Duoneb) 3 ml INHALATION Q4HWA.RT XIANG Last Admin: 02/06/19 10:44 Dose: 3 ml Documented by: Atorvastatin Calcium (Lipitor) 10 mg PO QHS [facility] Last Admin: 02/05/19 19:59 Dose: 10 mg Documented by: Carvedilol (Coreg) 12.5 mg PO BID [facility] Last Admin: 02/06/19 08:50 Dose: 12.5 mg Documented by: Enoxaparin Sodium (Lovenox) 40 mg SC DAILY [facility] Last Admin: 02/06/19 08:50 Dose: 40 mg Documented by: Glucagon () 1 mg IM .X1 PRN PRN Reason: Hypoglycemia Guaifenesin (Mucinex) 600 mg PO BID [facility] Last Admin: 02/06/19 08:50 Dose: 600 mg Documented by: Hydralazine HCl (Apresoline Iv) 10 mg IV Q8H PRN PRN PRN Reason: for SBP>160 Ceftriaxone Sodium 2 gm/ (Sodium Chloride) 50 mls @ 100 mls/hr IV Q24 [facility] Last Infusion: 02/06/19 09:19 Dose: Infused Documented by: Sodium Chloride () 250 mls @ 15 mls/hr IV .[id number] PRN PRN Reason: Saline Flush Sodium Chloride () 250 mls @ 15 mls/hr IV .[id number] PRN PRN Reason: Additional IVPB Infusion Azithromycin 500 mg/ Dextrose 255 mls @ 250 mls/hr IV Q24 [facility] Last Admin: 02/06/19 09:49 Dose: 250 mls/hr Documented by: Dextrose (Dextrose 10%-Water) 250 mls @ 999 mls/hr IV .Q16M PRN; Protocol PRN Reason: HYPOGLYCEMIA Methylprednisolone (Solu-Medrol) 40 mg IV Q8 [facility] Last Admin: 02/06/19 05:07 Dose: 40 mg Documented by: Sodium Chloride () 10 - 40 ml IV UD PRN PRN Reason: SALINE FLUSH Last Admin: 02/06/19 08:50 Dose: 10 ml Documented by: Sodium Chloride ([place] Nasal [place]) 2 spray NASAL BID PRN PRN PRN Reason: NASAL DRYNESS Last Admin: 02/05/19 03:49 Dose: 2 sprays Documented by: Clinical Impression(s) from Imaging Studies Chest X-Ray 02/01/19 13:10 IMPRESSION: Right mid/lower lung airspace disease (suspected infection; follow-up after treatment) Electronically Signed: aSul Parada DO at 13:36 EST Tel , Service support , Chest CTA 02/05/19 10:36 IMPRESSION: Right middle lobe and right lower lobe pneumonia. No demonstrated pulmonary embolism or arterial dissection. Electronically Signed: Hugo Broussard, at 11:50 EST Tel , Service support , Assessment/Plan All Active Problems Hypoxemia (Acute) RECOMMENDATIONS: 1. Diuretic trial 2. Obtain echocardiogram for pulmonary hypertension 3. Walking oximetry prior to discharge 4. Outpatient complete PFT and sleep work-up 5. Complete 5-day course of antibiotics, 12-day prednisone taper and bronchodilators 6. Patient should follow-up with nurse practitioner in our office 2 weeks after discharge IMPRESSIONS: 1. Hypoxia secondary to probable COPD exacerbation Patient is reporting what appears to be an acute exacerbation of COPD from a probable viral etiology. Patient did have an infiltrate on chest x-ray and has been treated with antibiotics and steroids with failure to improve. Patient did have significant polycythemia on presentation and may indicate chronic hypoxia secondary to progression of COPD. Patient has been smoking for the last 4 years and may have progressed to the need of supplemental oxygen. Other possible etiology would include pulmonary hypertension secondary to uncontrolled sleep apnea, congestive heart failure or progression of lung disease. We will give patient a trial of diuretics and obtain an echocardiogram for evaluation of pulmonary hypertension. Patient will need outpatient complete pulmonary function test for quantification and clarification of lung function. Cannot exclude the need for supplemental oxygen on discharge. 2. Probable obstructive sleep apnea High clinical suspicion for obstructive sleep apnea given clinical history. This can be arranged as an outpatient. This would not preclude discharge from my perspective. Patient should use supplemental oxygen required on exertion with any sleep in the interim. This may not be necessary once noninvasive therapy can be initiated. 3. Hypertension/lack of history Complicates care, management, recovery and prognosis. Likely okay to reinitiate home medications from my perspective. Patient would be a set up for diastolic dysfunction given smoking, lower extremity edema and history of hypertension. Echocardiogram has been ordered. Code Visit Inpatient E&M: 61338 Init Hosp L3
--- NOTE | 2019-02-06 11:31 | ECHOD_ITS ---
Reason For Study: PHTN Procedure This was a 2D Doppler, Color Flow transthoracic echocardiogram. Exam performed portable in patient room. Left Ventricle Normal size and thickness. The estimated ejection fraction is 65 %. Stage 1 diastolic dysfunction. Septal motion consistent with IVCD. No regional wall motion abnormalities noted. Right Ventricle Normal size and thickness. Normal systolic function. Atria Normal left atrium. Normal right atrium. Normal atrial septum. Mitral Valve The mitral valve is structurally normal. No prolapse or stenosis seen. Trivial mitral valve insufficiency. Tricuspid Valve Normal tricuspid valve. Unable to estimate RV systolic pressure due to insufficient tricuspid regurgitant envelope. Aortic Valve Trisinus/trileaflet aortic valve. Mild diffuse aortic valve thickening. Trivial aortic valve insufficiency. Pulmonic Valve Normal pulmonic valve. Great Vessels Normal aortic root. Normal arch. Normal inferior vena cava. Inferior vena cava collapse with sniff. Pericardium/Pleural No pericardial effusion. MMode/2D Measurements & Calculations LVIDd: 4.5 cm IVSd: 1.00 cm Ao root diam: 3.9 cm LVIDs: 2.6 cm LVPWd: 0.84 cm RVDd: 3.3 cm FS: 41.8 % LAV(MOD-bp): 49.9 ml LA A4 area: 15.8 cm2 LA dimension(2D): 2.6 cm LAV(MOD-bp) Indexed: 32.0 ml/m2 LAV(MOD-sp2): 45.5 ml LAV(MOD-sp4): 43.5 ml RA A4 area: 13.5 cm2 Doppler Measurements & Calculations MV E max mikey: 84.2 cm/sec Lat Peak E' Mikey: 8.4 cm/sec Med Peak E' Mikey: 5.2 cm/sec MV A max mikey: 101.6 cm/sec E/E' lat: 10.0 E/E' med: 16.3 MV E/A: 0.83 Ao V2 max: 155.2 cm/sec AI max mikey: 442.2 cm/sec LV V1 max: 120.7 cm/sec Ao max P.6 mmHg AI max P.2 mmHg LV V1 max P.8 mmHg AI dec slope: 203.1 cm/sec2 AI P1/2t: 637.6 msec PA V2 max: 114.4 cm/sec Interpretation Summary The estimated ejection fraction is 65 %. Stage 1 diastolic dysfunction. Trivial mitral valve insufficiency. Unable to estimate RV systolic pressure due to insufficient tricuspid regurgitant envelope. Trivial aortic valve insufficiency. There is no comparison study available. Ordering Physician: Alfredo Moseley Referring Physician: James Wayne Performed By: Jing Montelongo RDCS
[2019-02-06] MEDS: Furosemide 20 MG/2 ML VIAL IV (11:55)
--- NOTE | 2019-02-08 14:49 | CASEMGMT ---
BHARAT CM DC PHONE CALL DC DATE: 02.06.19 DC Disposition: Home Diagnosis on Discharge: Sepsis, Acute COPD LACE/STRATA: 01/13 Attempted call, pt did not answer phone. Kary DOE RN ACM
== END 2019-02-06 16:32 | disposition home or self-care (01) | DRG 871 ==
LOC: ED 14:41 → PCU 15:59
PROVIDERS: Admitting Provider Family Medicine; Emergency Provider Emergency Medicine; Referring Provider Family Medicine
DX: A41.9 Sepsis, unspecified organism (principal); J13 Pneumonia due to Streptococcus pneumoniae; J96.01 Acute respiratory failure with hypoxia; J44.1 Chronic obstructive pulmonary disease with (acute) exacerbation; J44.0 Chronic obstructive pulmonary disease with (acute) lower respiratory infection; Z23 Encounter for immunization; E87.6 Hypokalemia; I10 Essential (primary) hypertension; E78.5 Hyperlipidemia, unspecified; T50.2X5A Adverse effect of carbonic-anhydrase inhibitors, benzothiadiazides and other diuretics, initial encounter; F17.210 Nicotine dependence, cigarettes, uncomplicated
CPT/HCPCS: 36415; 71045; 71275; 80048; 83605; 83735; 84100; 84484; 85025; 87040; 87070; 87205; 87449; 93005; 93306; 94640; 99251; 99285; 99406; J7030; J7040; J7050; Q9967; 90686; A4216; G0463; J0696; J1940

== ENCOUNTER → 2019-02-26 08:26 | Outpatient (CLI) | payer OTHER, SELFPAY ==
[2019-02-23 07:41] VITALS: BMI 25.4
--- NOTE | 2019-02-26 08:30 | RAD_ITS ---
STUDY: X-RAY CHEST REASON FOR EXAM: Female, 64 years old. PREVIOUS PNEUMONIA ADMITTED ON FEBRUARY 02. HISTORY OF COPD, SMOKER FOR 40 YEARS. TECHNIQUE: PA and lateral views of the chest. COMPARISON: February 01, 2019 chest x-ray FINDINGS: Since prior study there is improved aeration of the right lower lobe with a resolved appearance of the right lower lobe infiltrates. There is no demonstrated pleural abnormality. Normal size heart. Normal mediastinum and jak. Normal visualized pulmonary arteries. There is atherosclerotic calcification of the aortic arch with tortuosity. There are diffuse degenerative changes of the visualized thoracic spine. Normal visualized ribs, clavicles, and shoulders. There is no demonstrated abnormality of the visualized soft tissue structures of the upper abdomen. RAD/Chest PA and Lateral IMPRESSION: Resolved appearing right lower lobe infiltrates. Could consider a follow-up noncontrast CT scan chest for further clarification. Electronically Signed: Emmie Johnson MD at 17:59 EST Tel , Service support ,
== END ==
LOC: RAD 08:28
PROVIDERS: PCP Nurse Practitioner Family; Referring Provider Nurse Practitioner Family; Visit Provider Nurse Practitioner Family
DX: J44.0 Chronic obstructive pulmonary disease with (acute) lower respiratory infection (principal); J18.9 Pneumonia, unspecified organism
CPT/HCPCS: 71046

== ENCOUNTER → 2019-03-01 12:43 | Outpatient (CLI) | payer OTHER, SELFPAY ==
[2019-02-23 07:41] VITALS: BMI 25.4
--- NOTE | 2019-03-01 17:02 | PFTCOMP ---
COMPLETE PULMONARY FUNCTION TEST INTERPRETATION Brief HPI: Patient is a 64 year old female, currently under the care of Dr. Drake, who presents to [facility] for complete pulmonary function tests secondary to diagnosis of COPD. Respiratory therapist reports good effort and reproducible results. Interpretation: Forced expiration spirometry shows a very severe large airways obstructive ventilatory defect with an FEV1 of 24% predicted. There is no significant bronchodilator response by strict ATS criteria. Spirograms are of good quality and plateau slowly, indicating slowly emptying areas of the lungs. The respiratory flow volume loop shows decreased expiratory flow rates at all lung volumes consistent with airway obstruction. Lung volumes by body plethysmography show an elevated total lung capacity at 5.29 L, 130% predicted. FRC and RV are elevated out of proportion. Lung volume measurements are consistent with hyperinflation and air-trapping. Diffusion capacity by carbon monoxide is decreased at 55% predicted. The airway resistance is elevated. No previous pulmonary function tests were available for review. Impression: Irreversible very severe large airways obstructive ventilatory defect with a symmetric reduction in diffusion capacity, resulting in air trapping with hyperinflation, in a pattern consistent with advanced COPD.
== END ==
LOC: PSN 12:44
PROVIDERS: PCP Nurse Practitioner Family; Referring Provider Internal Medicine Critical Care Medicine; Visit Provider Internal Medicine Critical Care Medicine
DX: J44.9 Chronic obstructive pulmonary disease, unspecified (principal)
CPT/HCPCS: 94060; 94726; 94729

== ENCOUNTER → 2019-03-02 11:03 | Outpatient (CLI) | payer OTHER, SELFPAY ==
[2019-02-23 07:41] VITALS: BMI 25.4
[2019-03-02 11:00] VITALS: PULSE 104; PULSE 75; PULSE 78; PULSE 82; PULSE 85; PULSE 86; PULSE 92; PULSE 98; O2SAT 87; O2SAT 88; O2SAT 90; O2SAT 91; O2SAT 92
--- NOTE | 2019-03-02 11:35 | CPS ---
Patient arrived on 2L NC, patient was taken off O2 and her RA SpO2 was 89-91. Patient started testing on RA and qualified for O2 at the 1 min nura with a SpO2 of 87%. 2L added at this time. Patient needed to be increased to 3L at the 4 min nura. Patient finished test on 3L. Renae CASTELAN
--- NOTE | 2019-03-02 16:01 | PCM.PSN.6M ---
PSN 6 Minute Walk Test - 6 Minute Walk Test 6 Minute Walk Test: 6 Minute Walk Test PSN:6-Minute Walk Test Start: 03/02/19 11:30 Freq: Status: Active Protocol: [id number].6MINW Document 03/02/19 11:00 KHALIF (Rec: 03/02/19 11:42 JLA [id number]) 6 Minute Walk Test Date Performed 03/02/19 Time Performed 11:00 Height 5 ft Weight: 61.689 kg Weight in Pounds 136.[address]: Jabier Drake Assistive device used: None Pre-test Oxygen Delivery Method Room Air Pulse Ox (%) 90 Pulse Rate (60-100 beats/min) 98 Dyspnea Donald Scale (0-10) 0 Exertion Donald Scale (6-20) 6 1st minute Oxygen Delivery Method Room Air Pulse Ox (%) 87 Pulse Rate (60-100 beats/min) 78 Dyspnea Donald Scale (0-10) 0 Exertion Donald Scale (6-20) 11 2nd minute Oxygen Flow Rate (L/min) (L/min) 2 Oxygen Delivery Method Nasal Cannula Pulse Ox (%) 91 Pulse Rate (60-100 beats/min) 86 3rd minute Oxygen Flow Rate (L/min) (L/min) 2 Oxygen Delivery Method Nasal Cannula Pulse Ox (%) 90 Pulse Rate (60-100 beats/min) 92 4th minute Oxygen Flow Rate (L/min) (L/min) 2 Oxygen Delivery Method Nasal Cannula Pulse Ox (%) 88 Pulse Rate (60-100 beats/min) 104 H 5th minute Oxygen Flow Rate (L/min) (L/min) 3 Oxygen Delivery Method Nasal Cannula Pulse Ox (%) 92 Pulse Rate (60-100 beats/min) 85 6th minute Oxygen Flow Rate (L/min) (L/min) 3 Oxygen Delivery Method Nasal Cannula Pulse Ox (%) 91 Pulse Rate (60-100 beats/min) 82 Dyspnea Donald Scale (0-10) 0.5 Exertion Donald Scale (6-20) 11 Post-test Oxygen Flow Rate (L/min) (L/min) 3 Oxygen Delivery Method Nasal Cannula Pulse Ox (%) 92 Pulse Rate (60-100 beats/min) 75 Full Laps Walked 19 Partial Lap, Number of Tiles Walked 0 Total Distance Walked (ft) 1121 03/02/19 11:35 Cardiopulmonary Services by Rakel Miguel Patient arrived on 2L NC, patient was taken off O2 and her RA SpO2 was 89-91. Patient started testing on RA and qualified for O2 at the 1 min nura with a SpO2 of 87%. 2L added at this time. Patient needed to be increased to 3L at the 4 min nura. Patient finished test on 3L. Renae DIRECTOR SOCIAL SERVICE Initialized on 03/02/19 11:35 - END OF NOTE - Interpretation Interpretation: The patient was noted to be 90% on room air at rest. The patient did desaturate to 87% in the first minute and was placed on 2 L nasal cannula. Patient did require 3 L/min to maintain saturations throughout ambulation. In total, patient traveled 1121 feet over the course of 6 minutes with no assistive devices or breaks. These findings are consistent with a respiratory limitation exercise tolerance. - Recommendations Recommendations: No supplemental oxygen is indicated at rest, but patient should be using 3 L nasal cannula with exertion.
== END ==
LOC: PSN 11:04
PROVIDERS: PCP Nurse Practitioner Family; Referring Provider Internal Medicine Critical Care Medicine; Visit Provider Internal Medicine Critical Care Medicine
DX: J96.11 Chronic respiratory failure with hypoxia (principal)
CPT/HCPCS: 94618

== ENCOUNTER → 2020-03-16 13:49 | Outpatient (CLI) | payer OTHER, SELFPAY ==
[2019-02-23 07:41] VITALS: BMI 25.4
[2020-03-16 15:33] LABS: Hematocrit 46.9 % (37-47); Hemoglobin 15.2 g/dL (12.0-15.0); Mean Corp Hgb Conc 32.4 g/dL (32-36); Mean Corpuscular Hgb 31.9 pg (27.0-32.0); Mean Corpuscular Volume 98.3 fL (81-99); Mean Platelet Vol. 11.6 fl (6.2-12.0); Platelet Count 174 K/mm3 (150-450); RBC Distribution Width CV 11.8 % (11.6-14.6); RBC Distribution Width SD 43.1 fl (35.1-43.9); Red Blood Count 4.77 M/mm3 (4.2-5.4); White Blood Count 8.3 K/mm3 (4.4-11.0)
[2020-03-16 16:06] LABS: Vitamin D,25 Hydroxy 40.1 ng/mL
[2020-03-16 16:09] LABS: ALB/GLOB Ratio 1.1 RATIO (0.9-2.4); AST(SGOT) 13 U/L (15-37); Alanine Aminotransfer ALT/SGPT 22 U/L (13-56); Albumin, Serum 3.9 g/dL (3.2-5.0); Alkaline Phosphatase 95 U/L (45-117); Anion Gap 3 (5-15); BUN 23 mg/dL (7-18); BUN/Creat Ratio 25.6 RATIO (10-20); Calcium,Total 9.4 mg/dL (8.5-10.1); Chloride 101 mmol/L (98-107); Cholesterol 197 mg/dL (200); EST Glomerular Filtration Rate 67 mL/min (>60); Est Glom Filt Rate - Afr Amer 81 mL/min (>60); Globulin 3.5 g/dL (2.2-4.2); Glucose 85 mg/dL (74-106); High Density Lipoprotein 61 mg/dL; Potassium 3.4 mmol/L (3.5-5.1); Protein, Total 7.4 g/dL (6.4-8.2); Sodium Level 139 mmol/L (136-145); Triglycerides 130 mg/dL; Very Low Density Lipoprotein 26 mg/dL (5-40)
== END ==
LOC: LAB 13:51
PROVIDERS: PCP Nurse Practitioner Family; Referring Provider Nurse Practitioner Family; Visit Provider Nurse Practitioner Family
DX: I10 Essential (primary) hypertension (principal); N28.9 Disorder of kidney and ureter, unspecified; E78.5 Hyperlipidemia, unspecified; E55.9 Vitamin D deficiency, unspecified
CPT/HCPCS: 36415; 80053; 80061; 82306; 85027

== ENCOUNTER 2020-08-14 10:12 | Inpatient (IN) | payer OTHER, SELFPAY ==
[2020-08-14] VITALS (10 sets, daily range): BP systolic 88–113; BP diastolic 51–63; PULSE 74–89; RESP 12–25; TEMP 36.8–37.1; O2SAT 90–97; BMI 26.6; BMI 26.2
--- NOTE | 2020-08-14 10:50 | CT_ITS ---
STUDY: CT ABDOMEN AND PELVIS WITHOUT CONTRAST REASON FOR EXAM: Female, 65 years old. left sided abd pain, diarrhea RADIATION DOSAGE (If Supplied By Facility): CTDIvol = ( 6.59 ) mGy, DLP = ( 296.44 ) mGycm TECHNIQUE: Transaxial images were obtained from the dome of the diaphragm to the symphysis pubis without oral contrast, and without intravenous contrast. Sagittal and coronal images were reconstructed. Individualized dose optimization techniques were used for this CT. COMPARISON: None available. FINDINGS: Lung bases: COPD with increased AP diameter. Mild atelectasis/scar. Heart: Coronary artery disease. Liver: Mild hepatic steatosis. Gallbladder/biliary ducts: Cholecystectomy. No acute process. Pancreas: Unremarkable. Spleen: Unremarkable. Adrenal glands: Unremarkable. Kidneys/ureters/bladder: 1 cm obstructing stone left proximal ureter (axial image 70 series 2). Moderate/severe left hydroureteronephrosis. Left perinephric fat stranding. Distal left ureteral tapering. Normal urinary bladder. Nondilated right ureter. Subtle left renal stone versus milk of calcium (axial image 66 series 2). Uterus/adnexa: Hysterectomy. Large bowel/small bowel: Colonic diverticulosis. No acute large bowel small bowel process. Appendix: No secondary signs of acute appendicitis. Gastroesophageal junction/stomach: Unremarkable. Retroperitoneum/lymph nodes: No intra-abdominal free air. Left paracolic gutter inflammatory changes. No pathologically enlarged lymph nodes. Vascular: Vascular calcifications. No aneurysm. Osseous structures: Minimal degenerative features. No acute process. Subcutaneous/soft tissues: No acute processes. Small fat-containing umbilical hernia. CT/Abdomen/Pelvis without Cont IMPRESSION: Acute obstructing 1 cm left proximal ureteral stone Moderate/severe left hydroureteronephrosis with inflammatory changes (complete urinalysis) Nonemergent findings, as above Electronically Signed: Saul Paarda DO at 12:34 EDT Tel , Service support ,
[2020-08-14 10:58] LABS: Absolute Lymphocyte Count 0.41 X10^3/uL (0.83-4.51); Absolute Neutrophil Count 13.3 X10^3/uL (2.0-7.7); Basophil# 0.05 X10^3/uL; Basophil% 0.3 % (0-1); Eosinophil# 0.01 X10^3/uL; Eosinophils% 0.1 % (0-5); Hemoglobin 14.5 g/dL (12.0-15.0); Lymphocyte # 0.41 X10^3/ul (0.83-4.51); Lymphocyte % 2.8 % (19-41); Mean Corp Hgb Conc 36.3 g/dL (32-36); Mean Corpuscular Hgb 33.5 pg (27.0-32.0); Mean Corpuscular Volume 92.4 fL (81-99); Monocyte# 0.77 X10^3/uL; Monocyte% 5.3 % (0-10); NRBC Flagged by Analyzer 0 % (0-5); POSITIVE DIFFERENTIAL YES; Platelet Count 123 K/mm3 (150-450); RBC Distribution Width CV 12.3 % (11.6-14.6); RBC Distribution Width SD 41.7 fl (35.1-43.9); Red Blood Count 4.33 M/mm3 (4.2-5.4); White Blood Count 14.6 K/mm3 (4.4-11.0)
[2020-08-14 10:59] LABS: Differential Indicated SCAN CRITERIA MET
--- NOTE | 2020-08-14 11:01 | NURSING ---
[place] HEMOLIZED , JUAN RAMON WILL REPRINT LABEL
[2020-08-14] MEDS: 0.9% Normal Saline 1,000 ML 1000 ML IV (11:17)
[2020-08-14] MEDS: Ondansetron 4 MG/2 ML Vial IV ×2 (11:17→16:00)
[2020-08-14 11:35] LABS: Platelet Estimate ADEQUATE (ADEQ); Platelet Morphology LARGE
[2020-08-14 11:43] LABS: ALB/GLOB Ratio 0.7 RATIO (0.9-2.4); AST(SGOT) 24 U/L (15-37); Alanine Aminotransfer ALT/SGPT 24 U/L (13-56); Albumin, Serum 2.7 g/dL (3.2-5.0); Alkaline Phosphatase 84 U/L (45-117); Anion Gap 9 (5-15); BUN 63 mg/dL (7-18); Calcium,Total 8.5 mg/dL (8.5-10.1); Chloride 90 mmol/L (98-107); Creatinine, Serum 2.33 mg/dL (0.55-1.02); EST Glomerular Filtration Rate 22 mL/min (>60); Est Glom Filt Rate - Afr Amer 27 mL/min (>60); Estimated Creatinine Clearance 17.75 ml/min; Globulin 4.1 g/dL (2.2-4.2); Glucose 124 mg/dL (74-106); Lipase 80 U/L (73-393); Potassium 2.7 mmol/L (3.5-5.1); Protein, Total 6.8 g/dL (6.4-8.2); Sodium Level 128 mmol/L (136-145)
[2020-08-14] MEDS: Potassium Chloride 10mEq/100mL 10 MEQ/100 ML IV.SOLN. 100 MEQ IV BOLUS ×4 (12:43→16:28)
[2020-08-14] MEDS: 0.9% Normal Saline 1,000 ML 150 ML IV (12:44)
--- NOTE | 2020-08-14 13:00 | EDS_ITS ---
HPI History of Present Illness Chief Complaint: Nausea/Vomiting/Diarrhea Narrative Narrative: Patient is a 65-year-old female with history of kidney stones presenting with back pain, diarrhea, less abdominal pain and nausea/dry heaves. Patient states has not really been able to keep anything down the past few days. She denies any blood in her stool or any melena. She denies any history of C. difficile or recent antibiotics. She does have a history of kidney stones a couple years ago. She denies any sick contacts. She denies any new foods. She is not taking any home [id number] medications. Patient does wear 2 to 3 L of oxygen at baseline secondary to COPD. [facility] Medical History Hypoxemia Stage 3 severe COPD by GOLD classification Tobacco abuse Home Medications albuterol sulfate 1 - 2 puff INHALATION Q4H PRN 02/01/19 [History Last Taken Unknown] carvedilol 12.5 mg PO BID 02/01/19 [History Last Taken 02/01/19] ipratropium-albuterol 3 ml INHALATION Q6H.RT PRN 02/01/19 [History Last Taken 01/31/19] lisinopril-hydrochlorothiazide 1 tab PO DAILY 02/01/19 [History Last Taken 02/01/19] lovastatin 40 mg PO DAILY 02/01/19 [History Last Taken 01/31/19] fluticasone fur. 100 mcg-umeclid 62.5 mcg-vilant 25 mcg inhalat.powder 1 inh INHALATION DAILY #1 ea 10/06/19 [Rx Last Taken Unknown] Allergy/AdvReac Type Severity Reaction Status Date / Time propoxyphene [From Darvon] AdvReac Nausea/Vom/ Verified 08/14/20 10:14 Diarrhea Family History Mother Heart disease Surgical History History of cholecystectomy History of hysterectomy Social History Smoking Status: Former smoker ROS ROS ED Constitutional Constitutional ED: Denies chills, fever(s) or sweats Eyes Eyes: Denies change in vision ENT ENT ED: Denies rhinorrhea or sore throat Cardiovascular Cardiovascular: Denies chest pain Respiratory/Chest Respiratory/Chest: Reports dyspnea; Denies cough, dyspnea on exertion or sputum Gastrointestinal Gastrointestinal: Reports abdominal pain, diarrhea, nausea and vomiting Genitourinary Genitourinary ED: Denies dysuria, hematuria or urinary frequency Musculoskeletal Musculoskeletal: Reports back pain; Denies myalgias Integumentary Denies rash Neurologic Neurologic: Reports headache(s) and weakness Psychiatric Psychiatric: Denies anxiety or depression EXAM Physical Exam Const Vital Signs: 08/14/20 10:14 08/14/20 11:21 08/14/20 12:44 Temperature 98.4 F Temperature Source Oral Pulse Rate 89 79 81 Respiratory Rate 23 H 12 13 Blood Pressure 103/62 102/63 103/58 L Blood Pressure Mean 75 76 73 Pulse Ox 96 95 94 Oxygen Delivery Method Nasal Cannula Nasal Cannula Nasal Cannula Oxygen Flow Rate (L/min) 2 2 2 Positive well nourished and well developed General Appearance ED: well developed HEENT Reports dry mucous membranes Negative for trauma Mouth ED: Yes dry mucous membranes Mouth: dry mucous membranes Eyes PERRL and EOMs intact bilaterally Neck supple and no JVD Chest Wall inspection of chest normal Resp normal respiratory effort and clear to auscultation bilaterally Auscultation: Negative for wheezes Cardio regular rate, regular rhythm and no murmurs GI non-distended GI Narrative: Diffuse tenderness palpation on the left side Auscultation: normoactive bowel sounds Palpation: soft Back/Spine General Back: CVA tenderness left Extremity normal to inspection General Extremety ED: Negative for edema General Extremity: Negative for edema Neuro oriented x3 and no sensory deficits noted Sensorium / Orientation: alert Motor Exam: general weakness Psych mental status grossly normal Skin no rashes or lesions noted MDM MDM MDM Narrative Medical decision making narrative: Patient evaluated for 3 to 4 days of abdominal pain, diarrhea and dry heaves. She appears dehydrated and uncomfortable. She is given IV fluids, Zofran and then fentanyl in the ER. CT of the abdomen pelvis obtained is differential includes diverticulitis as well as obstructing kidney stone. Patient does have a leukocytosis of 14.6 and a mild thrombocytopenia 123. Her CMP is remarkable for an MIRTA with a creatinine of 2.33 as well as a mild neutropenia of 128 and a hypokalemia of 2.7. Urinalysis is not resulted yet. CT of abdomen pelvis obtained without contrast because of her MIRTA and she is found to have an obstructing 1 cm left-sided proximal kidney stone. She is started on maintenance fluid 150 cc an hour. Case discussed with urology on-call, Dr. Jaime, who will admit her to his service. Patient is agreeable to this plan of care. She is given 40 mg of IV potassium replacement the emergency room as well. Patient does have symptomatic improvement while in the emergency room. I suspect that patient's GI symptoms are more of a sequela of her kidney stone however the diarrhea is atypical. I have a lower suspicion for infectious diarrhea given that she does not have any C. difficile history has not been on antibiotics and her diarrhea is actually been improving. She is agreeable with this plan of care. Impression #1. Left obstructing ureterolithiasis #2. MIRTA #3. Hypokalemia #4. Hyponatremia #5. Leukocytosis Lab Data Labs: Laboratory Results - last 24 hr 08/14/20 08/14/20 08/14/20 10:20 10:20 11:15 WBC 14.6 H RBC 4.33 Hgb 14.5 Hct 40.0 MCV 92.4 MCH 33.5 H MCHC 36.3 H RDW Std Deviation 41.7 RDW Coeff of [place] 12.3 Plt Count 123 L MPV TNP Immature Gran % (Auto) 0.500 Neut % (Auto) 91.0 H Lymph % (Auto) 2.8 L [place] % (Auto) 5.3 Eos % (Auto) 0.1 Baso % (Auto) 0.3 Absolute Neuts (auto) 13.3 H Absolute Lymphs (auto) 0.41 L Nucleated RBC % 0 Platelet Estimate ADEQUATE Plt Morphology Comment LARGE Sodium Cancelled 128 L Potassium Cancelled 2.7 L* Chloride Cancelled 90 L Carbon Dioxide Cancelled 29.0 Anion Gap Cancelled 9 BUN Cancelled 63 H Creatinine Cancelled 2.33 H Estim Creat Clear Calc Cancelled 17.75 Est GFR (MDRD) Af Amer Cancelled 27 L Est GFR (MDRD) Non-Af Cancelled 22 L BUN/Creatinine Ratio Cancelled 27.0 H Glucose Cancelled 124 H Calcium Cancelled 8.5 Total Bilirubin Cancelled 0.70 AST Cancelled 24 ALT Cancelled 24 Alkaline Phosphatase Cancelled 84 Total Protein Cancelled 6.8 Albumin Cancelled 2.7 L Globulin Cancelled 4.1 Albumin/Globulin Ratio Cancelled 0.7 L Lipase Cancelled 80 Radiography Diagnostic Testing: Radiology Impression Abdomen/Pelvis CT 08/14/20 10:50 IMPRESSION: Acute obstructing 1 cm left proximal ureteral stone Moderate/severe left hydroureteronephrosis with inflammatory changes (complete urinalysis) Nonemergent findings, as above Electronically Signed: Saul Parada DO at 12:34 EDT Tel , Service support , Discharge Plan Triage Chief Complaint: Nausea/Vomiting/Diarrhea ED Provider: Petra Helm Dx/Rx/DC Orders Prescriptions: No Action carvedilol 12.5 MG tablet 12.5 mg PO BID RF: 0 ipratropium-albuterol 3 ML solution for nebulization 3 ml inhalation Q6H.RT PRN (Reason: Sob &/Or Wheezing) RF: 0 lovastatin 40 MG tablet 40 mg PO DAILY RF: 0 lisinopril-hydrochlorothiazide 1 EACH tablet 1 tab PO DAILY RF: 0 albuterol sulfate 18 GM HFA aerosol inhaler 1 - 2 puff inhalation Q4H PRN (Reason: Sob &/Or Wheezing) RF: 0 Trelegy Ellipta 100-62.5-25 mcg blister with device 1 inh INHALATION DAILY Qty: 1 RF: 3 Primary Care Provider: Aki Velazquez NP Referrals: Aki Velazquez PHARMACY SERVICE ASSOCIATE, PHARMACY SERVICE ASSOCIATE-C [Primary Care Provider] - Disposition Disposition: Acute Care Hospital [facility]
[2020-08-14] MEDS: fentaNYL 100 MCG/2 ML Ampul 50 MCG IV (13:08)
--- NOTE | 2020-08-14 14:06 | NURSING ---
MED SURG LISE MIRTA, OBSTRUCTION [place]
--- NOTE | 2020-08-14 14:43 | HP.PCM_ITS ---
HPI - General General Date of Admission: 08/14/20 HPI Narrative HOA VELAZQUEZ, is a 65 F who presents with large obstructive stone in left proximal ureter. admitted for pain control and plan to place a stent tomorrow. [facility] Medical History (Updated 08/15/20 @ 07:[address] Zach Jaime MD) Anxiety Depression Hypoxemia Rheumatoid arthritis Stage 3 severe COPD by GOLD classification Tobacco abuse Home Medications albuterol sulfate 1 - 2 puff INHALATION Q4H PRN 02/01/19 [History Last Taken Unknown] carvedilol 12.5 mg PO BID 02/01/19 [History Last Taken 02/01/19] ipratropium-albuterol 3 ml INHALATION Q6H.RT PRN 02/01/19 [History Last Taken 01/31/19] lisinopril-hydrochlorothiazide 1 tab PO DAILY 02/01/19 [History Last Taken 02/01/19] lovastatin 40 mg PO DAILY 02/01/19 [History Last Taken 01/31/19] Allergy/AdvReac Type Severity Reaction Status Date / Time propoxyphene [From Darvon] AdvReac Nausea/Vom/ Verified 08/14/20 10:14 Diarrhea Family History Mother Heart disease Surgical History History of cholecystectomy History of hysterectomy Social History Smoking Status: Former smoker ROS Constitutional Constitutional: Denies chills, fever(s) or malaise Eyes Eyes: Denies blurry vision or change in vision ENT HEENT: Reports none Cardiovascular Cardiovascular: Denies chest pain or palpitations Respiratory/Chest Respiratory/Chest: Denies cough or shortness of breath with exertion Gastrointestinal Gastrointestinal: Denies abdominal pain, constipation or diarrhea Musculoskeletal Musculoskeletal: Denies back pain, joint stiffness or joint swelling Integumentary Integumentary: Denies dry skin, jaundice, lesions or rash Neurologic Neurologic: Denies confusion, syncope or weakness Psychiatric Psychiatric: Reports none; Denies anxiety or depression Endocrine Endocrinology: Denies excessive sweating, fatigue or flushing Hematologic/Lymphatic Hematologic/Lymphatic: Denies anemia, easy bleeding or easy bruising Vital Signs Vital Signs Vital Signs: 08/14/20 10:14 08/14/20 11:21 08/14/20 12:44 Temperature 98.4 F Temperature Source Oral Pulse Rate 89 79 81 Respiratory Rate 23 H 12 13 Blood Pressure 103/62 102/63 103/58 L Blood Pressure Mean 75 76 73 Pulse Ox 96 95 94 Oxygen Delivery Method Nasal Cannula Nasal Cannula Nasal Cannula Oxygen Flow Rate (L/min) 2 2 2 08/14/20 14:02 08/14/20 14:15 Temperature 98.7 F Temperature Source Temporal Pulse Rate 82 80 Respiratory Rate 25 H 23 H Blood Pressure 101/63 101/63 Blood Pressure Mean 75 75 Pulse Ox 96 97 Oxygen Delivery Method Nasal Cannula Nasal Cannula Oxygen Flow Rate (L/min) 2 2 Weight Weight: 61.8 kg Body Mass Index (BMI) 26.6 Physical Exam Const alert and oriented x3 General Appearance: cooperative HEENT normocephalic, head/scalp atraumatic, EAC's normal and TM's normal bilaterally Eyes PERRL and EOMs intact bilaterally Pupil: sluggish Neck no lymphadenopathy, supple and no JVD General: trachea midline Lymph Lymphatic: no lymphadenopathy noted, lymphedema and lymphadenopathy Resp normal respiratory effort, normal air movement and clear to auscultation bilat erally Cardio regular rate, regular rhythm and peripheral pulses 2+ throughout GI soft to palpation, non-tender and non-distended Extremity normal capillary refill and no clubbing, cyanosis or edema General Extremity: no tenderness to palpation of joints or extremities Skin no rashes or lesions noted General Skin Exam: turgor normal Lesions: no lesions Rashes: no rashes Neuro CN's II-XII intact bilaterally Speech: speech normal Motor Exam: strength 5/5 throughout; Negative for general weakness Psych thought process normal, cooperative and affect normal Appearance: appropriate Results Lab / Micro Data Result Diagrams: 08/14/20 10:20 08/15/20 06:20 Labs: Laboratory Results - last 24 hr 08/14/20 08/14/20 08/14/20 10:20 10:20 11:15 WBC 14.6 H RBC 4.33 Hgb 14.5 Hct 40.0 MCV 92.4 MCH 33.5 H MCHC 36.3 H RDW Std Deviation 41.7 RDW Coeff of [place] 12.3 Plt Count 123 L MPV TNP Immature Gran % (Auto) 0.500 Neut % (Auto) 91.0 H Lymph % (Auto) 2.8 L [place] % (Auto) 5.3 Eos % (Auto) 0.1 Baso % (Auto) 0.3 Absolute Neuts (auto) 13.3 H Absolute Lymphs (auto) 0.41 L Nucleated RBC % 0 Platelet Estimate ADEQUATE Plt Morphology Comment LARGE Sodium Cancelled 128 L Potassium Cancelled 2.7 L* Chloride Cancelled 90 L Carbon Dioxide Cancelled 29.0 Anion Gap Cancelled 9 BUN Cancelled 63 H Creatinine Cancelled 2.33 H Estim Creat Clear Calc Cancelled 17.75 Est GFR (MDRD) Af Amer Cancelled 27 L Est GFR (MDRD) Non-Af Cancelled 22 L BUN/Creatinine Ratio Cancelled 27.0 H Glucose Cancelled 124 H Calcium Cancelled 8.5 Total Bilirubin Cancelled 0.70 AST Cancelled 24 ALT Cancelled 24 Alkaline Phosphatase Cancelled 84 Total Protein Cancelled 6.8 Albumin Cancelled 2.7 L Globulin Cancelled 4.1 Albumin/Globulin Ratio Cancelled 0.7 L Lipase Cancelled 80 Radiology Impression Abdomen/Pelvis CT 08/14/20 10:50 IMPRESSION: Acute obstructing 1 cm left proximal ureteral stone Moderate/severe left hydroureteronephrosis with inflammatory changes (complete urinalysis) Nonemergent findings, as above Electronically Signed: Saul Parada DO at 12:34 EDT Tel , Service support , Assessment & Plan Assessment/Plan (1) Ureteral stone: PLAN: Admitted for large obstructing kidney stone plan to proceed with stent placement today.
[2020-08-14] MEDS: Lactated Ringers 1,000 ML 150 ML IV ×2 (15:27→21:43)
[2020-08-14] MEDS: Potassium Chloride Oral Tablet 20 MEQ 60 MEQ PO (16:00)
[2020-08-14] MEDS: Morphine 2 MG/ML Syringe IV ×2 (16:00→23:15)
[2020-08-14] MEDS: 0.9% Saline Lock 10 ML Syringe IV ×2 (16:00→23:15)
[2020-08-14 17:44] LABS: Mucous, Urine 0 SEEN /hpf (<or=2+)
[2020-08-14 17:45] LABS: Color, Urine Yellow (Yellow); Glucose, Dipstick Normal (Normal); Ketone-Dipstick Negative (Negative); Leukocyte Esterase-Dipstick 500 /ul (Negative); Nitrite-Dipstick Negative (Negative); Occult Blood-Urine 150 /ul (Negative); Protein-Dipstick 100 mg/dl (Negative); Urine Bilirubin Dipstick Negative (Negative); Urine Clarity Cloudy (Clear); Urine Urobilinogen Normal (Normal)
[2020-08-14 17:54] LABS: Bacteria 1+ /hpf (None Seen); Red Blood Cells-Urine 0-5 SEEN /hpf (0-5); Squamous Epithelial Cells - UA 0-5 SEEN /hpf (5-10); White Blood Cells >100 SEEN /hpf (0-5)
[2020-08-14] MEDS: Ipratropium/Albuterol Sulfate 3 ML AMPUL.NEB INHALATION (19:44)
[2020-08-14] MEDS: Budesonide Respules 0.5 MG/2 ML AMPUL.NEB. INHALATION (19:45)
[2020-08-14] MEDS: Cefazolin 1 GM/50 ML BAG IV (21:43)
[2020-08-14] MEDS: Atorvastatin Calcium 10 MG Tablet PO (21:43)
[2020-08-15] VITALS (14 sets, daily range): BP systolic 96–118; BP diastolic 52–72; PULSE 78–88; RESP 14–20; TEMP 36.4–37.7; O2SAT 87–97; BMI 26.2
[2020-08-15] MEDS: Lactated Ringers 1,000 ML 150 ML IV ×2 (05:04→12:11)
--- NOTE | 2020-08-15 06:00 | EKG12_ITS ---
Test Reason : AM EKG Blood Pressure : / mmHG Vent. Rate : 080 BPM Atrial Rate : 080 BPM P-R Int : 170 ms QRS Dur : 146 ms QT Int : 400 ms P-R-T Axes : 071 066 076 degrees QTc Int : 461 ms Normal sinus rhythm Right bundle branch block Abnormal ECG When compared with ECG of 01-FEB-2019 13:18, No significant change was found Confirmed by RUPESH HUI, RK ([id number]), manuscript editor CODY YOUNG ([id number]) on 08/22/2020 7:50:02 AM Referred By: Zach Jaime Confirmed By:RK GODDARD MD
[2020-08-15 06:56] LABS: Anion Gap 5 (5-15); BUN 45 mg/dL (7-18); BUN/Creat Ratio 30.2 RATIO (10-20); Calcium,Total 8.1 mg/dL (8.5-10.1); Chloride 101 mmol/L (98-107); Creatinine, Serum 1.49 mg/dL (0.55-1.02); EST Glomerular Filtration Rate 38 mL/min (>60); Est Glom Filt Rate - Afr Amer 45 mL/min (>60); Estimated Creatinine Clearance 27.76 ml/min; Glucose 104 mg/dL (74-106); Potassium 3.9 mmol/L (3.5-5.1); Sodium Level 131 mmol/L (136-145)
[2020-08-15] MEDS: Ipratropium/Albuterol Sulfate 3 ML AMPUL.NEB INHALATION ×3 (06:57→19:07)
[2020-08-15] MEDS: Budesonide Respules 0.5 MG/2 ML AMPUL.NEB. INHALATION ×2 (06:57→19:07)
--- NOTE | 2020-08-15 07:07 | PN.URO_ITS ---
Subjective Subjective Admitted for obstructing left kidney stone stable currently pain controlled with morphine etc. Objective Data Objective Data Vital Signs: Vital Signs Temp Pulse Resp BP Pulse Ox 99.1 F 82 18 96/52 L 91 08/15/20 05:07 08/15/20 06:59 08/15/20 06:59 08/15/20 05:07 08/15/20 06:59 Oxygen Flow Rate (L/min) 2 Oxygen Delivery Method Nasal Cannula Weight: 60.895 kg Body Mass Index (BMI) 26.2 Intake & Output: Intake and Output for Last 24 Hours 08/13/20 08/14/20 08/15/20 23:59 23:59 23:59 Intake Total 3045.0 / 3365.0 1312.5 / 1312.5 Output Total 400 / 475 275 / 275 Balance 2645.0 / 2890.0 1037.5 / 1037.5 Lab / Micro Data Result Diagrams: 08/14/20 10:20 08/15/20 06:20 Labs: Laboratory Results - last 24 hr 08/14/20 08/14/20 08/14/20 10:20 10:20 11:15 WBC 14.6 H RBC 4.33 Hgb 14.5 Hct 40.0 MCV 92.4 MCH 33.5 H MCHC 36.3 H RDW Std Deviation 41.7 RDW Coeff of [place] 12.3 Plt Count 123 L MPV TNP Immature Gran % (Auto) 0.500 Neut % (Auto) 91.0 H Lymph % (Auto) 2.8 L [place] % (Auto) 5.3 Eos % (Auto) 0.1 Baso % (Auto) 0.3 Absolute Neuts (auto) 13.3 H Absolute Lymphs (auto) 0.41 L Nucleated RBC % 0 Platelet Estimate ADEQUATE Plt Morphology Comment LARGE Sodium Cancelled 128 L Potassium Cancelled 2.7 L* Chloride Cancelled 90 L Carbon Dioxide Cancelled 29.0 Anion Gap Cancelled 9 BUN Cancelled 63 H Creatinine Cancelled 2.33 H Estim Creat Clear Calc Cancelled 17.75 Est GFR (MDRD) Af Amer Cancelled 27 L Est GFR (MDRD) Non-Af Cancelled 22 L BUN/Creatinine Ratio Cancelled 27.0 H Glucose Cancelled 124 H Calcium Cancelled 8.5 Total Bilirubin Cancelled 0.70 AST Cancelled 24 ALT Cancelled 24 Alkaline Phosphatase Cancelled 84 Total Protein Cancelled 6.8 Albumin Cancelled 2.7 L Globulin Cancelled 4.1 Albumin/Globulin Ratio Cancelled 0.7 L Lipase Cancelled 80 Urine Color Urine Clarity Urine pH Ur Specific [place] Urine Protein Urine Glucose (UA) Urine Ketones Urine Occult Blood Urine Nitrite Urine Bilirubin Urine Urobilinogen Ur Leukocyte Esterase Urine RBC Urine WBC Ur Squamous Epith Cells Urine Bacteria Urine Mucus 08/14/20 08/15/20 17:30 06:20 WBC RBC Hgb Hct MCV MCH MCHC RDW Std Deviation RDW Coeff of [place] Plt Count MPV Immature Gran % (Auto) Neut % (Auto) Lymph % (Auto) [place] % (Auto) Eos % (Auto) Baso % (Auto) Absolute Neuts (auto) Absolute Lymphs (auto) Nucleated RBC % Platelet Estimate Plt Morphology Comment Sodium 131 L Potassium 3.9 Chloride 101 Carbon Dioxide 25.0 Anion Gap 5 BUN 45 H Creatinine 1.49 H Estim Creat Clear Calc 27.76 Est GFR (MDRD) Af Amer 45 L Est GFR (MDRD) Non-Af 38 L BUN/Creatinine Ratio 30.2 H Glucose 104 Calcium 8.1 L Total Bilirubin AST ALT Alkaline Phosphatase Total Protein Albumin Globulin Albumin/Globulin Ratio Lipase Urine Color Yellow Urine Clarity Cloudy Urine pH 6.0 Ur Specific [place] 1.010 Urine Protein 100 H Urine Glucose (UA) Normal Urine Ketones Negative Urine Occult Blood 150 H Urine Nitrite Negative Urine Bilirubin Negative Urine Urobilinogen Normal Ur Leukocyte Esterase 500 H Urine RBC 0-5 SEEN Urine WBC >100 SEEN Ur Squamous Epith Cells 0-5 SEEN Urine Bacteria 1+ Urine Mucus 0 SEEN Radiography Diagnostic Testing: Radiology Impression Abdomen/Pelvis CT 08/14/20 10:50 IMPRESSION: Acute obstructing 1 cm left proximal ureteral stone Moderate/severe left hydroureteronephrosis with inflammatory changes (complete urinalysis) Nonemergent findings, as above Electronically Signed: Saul Parada DO at 12:34 EDT Tel , Service support , Physical Exam Const alert and oriented x3 General Appearance: cooperative HEENT normocephalic, head/scalp atraumatic, EAC's normal and TM's normal bilaterally Eyes PERRL and EOMs intact bilaterally Pupil: sluggish Neck no lymphadenopathy, supple and no JVD General: trachea midline Lymph Lymphatic: no lymphadenopathy noted, lymphedema and lymphadenopathy Resp normal respiratory effort, normal air movement and clear to auscultation bilaterally Cardio regular rate, regular rhythm and peripheral pulses 2+ throughout GI soft to palpation, non-tender and non-distended Extremity normal capillary refill and no clubbing, cyanosis or edema General Extremity: no tenderness to palpation of joints or extremities Skin no rashes or lesions noted General Skin Exam: turgor normal Lesions: no lesions Rashes: no rashes Neuro CN's II-XII intact bilaterally Speech: speech normal Motor Exam: strength 5/5 throughout; Negative for general weakness Psych thought process normal, cooperative and affect normal Appearance: appropriate Assessment & Plan Assessment/Plan (1) Ureteral stone: PLAN: Plan to proceed with left stent placement today.
[2020-08-15] MEDS: Morphine 2 MG/ML Syringe IV ×2 (07:21→14:24)
[2020-08-15] MEDS: Cefazolin 1 GM/50 ML BAG IV (09:21)
--- NOTE | 2020-08-15 10:40 | CASEMGMT ---
Addendum entered by Anna Evans 08/15/20 12:01: Received tc back from Cherry in registration who states pt is not eligible for her insurance. She did speak with patient and verified with her the insurance card. Pt is self pay. Original Note: BHARAT VALERO Assessment: Face to Face with pt for initial transition planning/care coordination assessment. BHARAT VALERO introduced self and role at [facility], pt voices understanding and consents to assessment. Pt is A/O x4 and answers all questions appropriately at this time. Pt lying in bed in no distress. Care providers, pharmacy, and demographics verified/updated. Admitting Dx: Kidney Stone PCP: Aki Hunt, [facility] Specialists:Leanne Ford Pharmacy: [facility] Insurance: Pt reports she has [employer] insurance although Bizzby states self pay. Notified Cherry in registration who will correct. Prescription Benefit: yes LW/HPOA: Pt denies having LW or DPOA. LNOK: Bull Matos, dtr Living Arrangements: Pt lives with dtr in a 2 story house with 3 steps to enter with rail. Pt reports being I in ADL's and denies concerns at home. Transportation: Pt drives self and denies concerns with transportation. DME/HHC/SNF: Pt has O2 at home. She uses 2L [place] cont and gets it from [facility]. Pt denies any previous HHC or SNF stays. Pt states no concerns with going home at time of dc. Pt states no further concerns/needs. CM to follow. Advised pt to ask CM if any further question/concerns/needs arise, voices understanding. Pt Goal: Home Plan: Home
[2020-08-15] MEDS: Lidocaine Jelly 2% 20 ML Syringe (URO-JET) 20 APPLIC (17:20)
--- NOTE | 2020-08-15 17:28 | OP.PCM_ITS ---
Report of Operation Date of Procedure: 08/15/20 Pre-Operative Diagnosis: Left obstructing ureteral calculi Post-Operative Diagnosis: Same Surgery/Procedure Performed:: Cystoscopy left stent placement left retrograde pyelogram interpreted fluoroscopic views Description of Surgical Findings:: Patient was taken back to the operating room after induction of general anesthesia, the patient was placed in dorsolithotomy position. The urethra and genitals were prepped and draped in usual sterile fashion. Using a 21 [place] rigid cystourethroscope the entire length of the urethra was normal then went into the bladder. Identified the trigone the left and right ureteral orifice. I then cannulated the LEFT orifice and advanced a wire up into the kidney. I then backloaded a 5 [place] open ended catheter over the wire and injected contrast to delineate the anatomy. Contrast was injected into the ureter he can see contrast going up to the kidney in a smooth fashion there were no filling defects stones along the course of the ureter the kidney filled out nicely with no filling defects within the kidney. After the retrograde was performed I then used fluoroscopic images and guidance to advanced a wire up into the kidney and over the 0.038 glidewire I advanced a 6 [place] by 26 cm double pigtail stent. I then pulled the 0.038 Glidewire off and the stent coiled in the kidney bladder good position. The bladder was then drained. We confirmed the position of the stent by fluoroscopy. Patient anesthetic was reversed and was taken back to the PACU in good condition. Surgeon: LISE Type of Anesthesia: General Drains: STENT LEFT Admit VTE Documentation VTE Present on Admission: No VTE Mechan Device Prophylaxis: SCD's
== END 2020-08-15 19:51 | disposition home or self-care (01) | DRG 660 ==
LOC: ED 14:14 → MS3 16:25
PROVIDERS: Admitting Provider Urology; Emergency Provider Emergency Medicine; PCP Nurse Practitioner Family; Visit Provider Urology
PROC: 0T778DZ Dilation of Left Ureter with Intraluminal Device, Via Natural or Artificial Opening Endoscopic (ICD-10-PCS; CPT 52332; principal; 2020-08-15 16:20)
DX: N13.2 Hydronephrosis with renal and ureteral calculous obstruction (principal); E87.1 Hypo-osmolality and hyponatremia; N17.9 Acute kidney failure, unspecified; E87.6 Hypokalemia; D72.829 Elevated white blood cell count, unspecified; J44.9 Chronic obstructive pulmonary disease, unspecified; Z20.822 Contact with and (suspected) exposure to COVID-19; Z99.81 Dependence on supplemental oxygen; Z79.899 Other long term (current) drug therapy; Z87.442 Personal history of urinary calculi; Z87.891 Personal history of nicotine dependence
CPT/HCPCS: 36415; 74176; 76000; 80048; 80053; 81001; 83690; 85025; 87426; 93005; 94640; 99285; J7030; J7120; A4216; C1769; C2617; J2405

== ENCOUNTER 2020-08-18 11:31 | Day surgery (SDC) | payer OTHER, SELFPAY ==
[2020-08-14 14:36] VITALS: BMI 26.2
[2020-08-18 11:50] VITALS: BP 136/73; PULSE 96; RESP 20; TEMP 36.6; O2SAT 94; BMI 26.7
[2020-08-18] MEDS: Lactated Ringers 1,000 ML 100 ML IV (11:50)
[2020-08-18] MEDS: Cefazolin 2 GM in 0.9% Normal Saline 100 ML IV (12:33)
--- NOTE | 2020-08-18 12:40 | PCM.HP.STD ---
HPI - General HPI Narrative HOA VELAZQUEZ, is a 65 F who presents for treatment of a left renal calculi she underwent stent placement earlier this week for obstructing stone. PFSH Medical History (Updated 08/17/20 @ 10:43 by Yoon Bueno) Anxiety Arthritis Depression Former smoker High cholesterol Hx of echocardiogram Hypertension Hypoxemia Stage 3 severe COPD by GOLD classification Tobacco abuse Wears dentures Wears glasses Home Medications albuterol sulfate 1 - 2 puff INHALATION Q4H PRN 02/01/19 [History Last Taken Unknown] carvedilol 12.5 mg PO BID 02/01/19 [History Last Taken 02/01/19] ipratropium-albuterol 3 ml INHALATION Q6H.RT PRN 02/01/19 [History Last Taken 01/31/19] lisinopril-hydrochlorothiazide 1 tab PO DAILY 02/01/19 [History Last Taken 02/01/19] lovastatin 40 mg PO DAILY 02/01/19 [History Last Taken 01/31/19] ciprofloxacin HCl [Cipro] 500 mg PO BID #10 tab 08/15/20 [Rx Last Taken Unknown] oxycodone-acetaminophen 1 tab PO Q4H PRN 7 Days #14 tab 08/15/20 [Rx Last Taken Unknown] multivitamin 1 cap PO DAILY 08/17/20 [History Last Taken Unknown] omega-3 fatty acids 1,000 mg PO BID 08/17/20 [History Last Taken Unknown] ciprofloxacin HCl [Cipro] 500 mg PO BID #6 tab 08/18/20 [Rx Last Taken Unknown] oxycodone-acetaminophen 1 tab PO Q6H PRN 7 Days #14 tab 08/18/20 [Rx Last Taken Unknown] Allergy/AdvReac Type Severity Reaction Status Date / Time propoxyphene [From Darvon] AdvReac Nausea/Vom/ Verified 08/18/20 11:59 Diarrhea Family History Mother Heart disease Surgical History (Updated 08/17/20 @ 10:41 by Yoon Bueno) History of History of cholecystectomy History of hysterectomy Hx of cystoscopy Social History Smoking Status: Former smoker ROS Constitutional Constitutional: Denies chills, fever(s) or malaise Eyes Eyes: Denies blurry vision or change in vision ENT HEENT: Reports none Cardiovascular Cardiovascular: Denies chest pain or palpitations Respiratory/Chest Respiratory/Chest: Denies cough or shortness of breath with exertion Gastrointestinal Gastrointestinal: Denies abdominal pain, constipation or diarrhea Musculoskeletal Musculoskeletal: Denies back pain, joint stiffness or joint swelling Integumentary Integumentary: Denies dry skin, jaundice, lesions or rash Neurologic Neurologic: Denies confusion, syncope or weakness Psychiatric Psychiatric: Reports none; Denies anxiety or depression Endocrine Endocrinology: Denies excessive sweating, fatigue or flushing Hematologic/Lymphatic Hematologic/Lymphatic: Denies anemia, easy bleeding or easy bruising Vital Signs Vital Signs Vital Signs: 08/18/20 11:50 Temperature 98 F Temperature Source Temporal Pulse Rate 96 Respiratory Rate 20 H Respiratory Pattern Normal Blood Pressure 136/73 H Blood Pressure Mean 94 Blood Pressure Source Monitor Blood Pressure Position Sitting Blood Pressure Location Left Arm Pulse Ox 94 Oxygen Delivery Method Nasal Cannula Oxygen Flow Rate (L/min) 3 Weight Weight: 62.051 kg Body Mass Index (BMI) 26.7 Physical Exam Const alert and oriented x3 General Appearance: cooperative HEENT normocephalic, head/scalp atraumatic, EAC's normal and TM's normal bilaterally Eyes PERRL and EOMs intact bilaterally Pupil: sluggish Neck no lymphadenopathy, supple and no JVD General: trachea midline Lymph Lymphatic: no lymphadenopathy noted, lymphedema and lymphadenopathy Resp normal respiratory effort, normal air movement and clear to auscultation bilaterally Cardio regular rate, regular rhythm and peripheral pulses 2+ throughout GI soft to palpation, non-tender and non-distended Extremity normal capillary refill and no clubbing, cyanosis or edema General Extremity: no tenderness to palpation of joints or extremities Skin no rashes or lesions noted General Skin Exam: turgor normal Lesions: no lesions Rashes: no rashes Neuro CN's II-XII intact bilaterally Speech: speech normal Motor Exam: strength 5/5 throughout; Negative for general weakness Psych thought process normal, cooperative and affect normal Appearance: appropriate Assessment & Plan Assessment/Plan (1) Ureteral stone: PLAN: Plan to proceed with left shockwave lithotripsy she understands the stone may require more than one treatment.
--- NOTE | 2020-08-18 12:41 | DCINST_ITS ---
Discharge Instructions Diet Discharge Diet: No restrictions Activity Discharge Activity: Return to Normal Activity and May Not Drive (while taking narcotic pain medications.) Dressing / Incision Call your doctor if you observe: Fever of 101 or Higher Follow Up Care Please Follow Up With: Zach Jaime MD When: Call [phone] for an appointment Test Results: Test results from this visit will be discussed in further detail at your follow-up appointment, if applicable. Discharge Plan Admission Primary Reason for Your Visit: left ESWL Attending Provider: Zach Jaime Primary Care Provider: Aki Velazquez NP Discharge Orders/Prescriptions Prescriptions: New ciprofloxacin HCl [Cipro] 500 mg tablet 500 mg PO BID Qty: 6 RF: 0 oxycodone-acetaminophen 5-325 mg tablet 1 tab PO Q6H PRN (Reason: pain) 7 Days Qty: 14 RF: 0 Continued carvedilol 12.5 MG tablet 12.5 mg PO BID RF: 0 ipratropium-albuterol 3 ML solution for nebulization 3 ml inhalation Q6H.RT PRN (Reason: Sob &/Or Wheezing) RF: 0 lovastatin 40 MG tablet 40 mg PO DAILY RF: 0 lisinopril-hydrochlorothiazide 1 EACH tablet 1 tab PO DAILY RF: 0 albuterol sulfate 18 GM HFA aerosol inhaler 1 - 2 puff inhalation Q4H PRN (Reason: Sob &/Or Wheezing) RF: 0 oxycodone-acetaminophen 5-325 mg tablet 1 tab PO Q4H PRN (Reason: pain) 7 Days Qty: 14 RF: 0 ciprofloxacin HCl [Cipro] 500 mg tablet 500 mg PO BID Qty: 10 RF: 0 multivitamin Capsule 1 cap PO DAILY RF: 0 omega-3 fatty acids Capsule 1,000 mg PO BID RF: 0 Referrals / Follow Up: Zach Jaime MD [STAFF PHYSICIAN] - Aki Velazquez NP, DIRECTOR OF SLOT OPERATIONS-C [Primary Care Provider] - Disposition Disposition (needs filled in before D/C Order can be placed): Home, Self Care
--- NOTE | 2020-08-18 13:20 | PCM.OPRPT ---
Report of Operation Date of Procedure: 08/18/20 Pre-Operative Diagnosis: Left renal calculi status post stent Post-Operative Diagnosis: same Surgery/Procedure Performed:: left extracorporeal shockwave lithotripsy Description of Surgical Findings:: patient presents to the hospital for treatment of a kidney stone with shockwave lithotripsy. In the preoperative area and x-ray was done to confirm the location of the stone. The x-ray was reviewed and the stone location was reviewed. In the preoperative setting I spoke with the patient regarding the treatment of the stone how the treatment would be conducted and the expectations after surgery. The patient understands there is a risk of bleeding and infection. Also discussed the very rare risk of hematoma or damage to the kidney. We also discussed the risk that the shockwave machine will fail to break the stone adequately and that the patient may need other surgical procedures. We also discussed the possibility that the patient may need a stent after the procedure. After reviewing the procedure with the patient, the patient is signed the consent form all the patient's questions were addressed and was taken back to the operating room for treatment of a kidney stone. Patient was taken back to the operating room, patient was identified by the nursing staff, we identified the side of the treatment and the patient side of treatment had been marked by my initials. The patient underwent general anesthetic and was placed supine on the lithotripter table. We then used fluoroscopy to identify the stone on the left side. We then positioned the patient under the lithotripter and we used triangulation technique to identify the location of the stone and then we made sure that the stone was engaged in the F2 focal point of F2 Donier lithoprior machine. Once the patient was positioned appropriately and the stone was identified and placed in the F2 focal point of the lithotripter machine we then proceeded with shockwave lithotripsy. In the beginning the shockwave was delivered at a rate of 90 shocks per minute, we monitor the EKG for any ectopy. The power was slowly increased to 5 kV and subsequently at the 7 kV. We then proceeded with the treatment we move the therapy had around during the treatment to make sure the stone stayed in the F2 focal point during the entire treatment and after 3000 shockwaves were delivered to the stone under fluoroscopic guidance the treatment was completed. The patient was given instructions to call the office to make an a follow-up appointment with an xray to evaluate the success of the treatment, pateint understands that its possible the stones may need another procedure.At this point the patient's anesthetic was reversed patient was extubated and taken back to the PACU in stable condition. Type of Anesthesia: General Admit VTE Documentation VTE Present on Admission: No VTE Mechan Device Prophylaxis: SCD's
[2020-08-18 13:30] VITALS: BP 101/48; BP 136/73; PULSE 97; RESP 16; TEMP 36.8; O2SAT 100
[2020-08-18 13:45] VITALS: BP 136/73; BP 99/57; PULSE 97; RESP 16; O2SAT 95
[2020-08-18 14:00] VITALS: BP 136/73; BP 98/54; PULSE 95; RESP 20; O2SAT 94
[2020-08-18 14:13] VITALS: BP 136/73; BP 98/49; PULSE 97; RESP 20; TEMP 37.4; O2SAT 94
[2020-08-18 14:40] VITALS: BP 136/73
== END 2020-08-18 14:45 | disposition home or self-care (01) ==
LOC: SDC 11:33 → AC 11:34
PROVIDERS: PCP Nurse Practitioner Family; Referring Provider Urology; Visit Provider Urology
PROC: (CPT 50590; principal; 2020-08-18 13:15)
DX: N20.0 Calculus of kidney (principal); J44.9 Chronic obstructive pulmonary disease, unspecified; R09.02 Hypoxemia; I10 Essential (primary) hypertension; E78.00 Pure hypercholesterolemia, unspecified; M19.90 Unspecified osteoarthritis, unspecified site; F32.9 Major depressive disorder, single episode, unspecified; F41.9 Anxiety disorder, unspecified; Z79.899 Other long term (current) drug therapy; Z87.891 Personal history of nicotine dependence
CPT/HCPCS: 50590; 52332; J7120; J2405

== ENCOUNTER → 2020-08-28 07:55 | Outpatient (CLI) | payer OTHER, SELFPAY ==
[2020-08-18 11:50] VITALS: BMI 26.7
[2020-08-28 08:24] LABS: Hematocrit 37.7 % (37-47); Hemoglobin 11.8 g/dL (12.0-15.0); Mean Corp Hgb Conc 31.3 g/dL (32-36); Mean Corpuscular Hgb 32.2 pg (27.0-32.0); Mean Platelet Vol. 10.2 fl (6.2-12.0); Platelet Count 252 K/mm3 (150-450); RBC Distribution Width CV 12.8 % (11.6-14.6); RBC Distribution Width SD 48.2 fl (35.1-43.9); Red Blood Count 3.66 M/mm3 (4.2-5.4); White Blood Count 11.9 K/mm3 (4.4-11.0)
[2020-08-28 08:45] LABS: Anion Gap 0 (5-15); BUN 25 mg/dL (7-18); BUN/Creat Ratio 22.1 RATIO (10-20); Calcium,Total 8.6 mg/dL (8.5-10.1); Chloride 100 mmol/L (98-107); Creatinine, Serum 1.13 mg/dL (0.55-1.02); EST Glomerular Filtration Rate 52 mL/min (>60); Est Glom Filt Rate - Afr Amer 62 mL/min (>60); Glucose 106 mg/dL (74-106); Sodium Level 137 mmol/L (136-145)
== END ==
PROVIDERS: PCP Nurse Practitioner Family
DX: N28.9 Disorder of kidney and ureter, unspecified (principal); N20.0 Calculus of kidney
CPT/HCPCS: 36415; 80048; 85027

== ENCOUNTER → 2020-09-12 08:37 | Outpatient (CLI) | payer OTHER, SELFPAY ==
[2020-08-18 11:50] VITALS: BMI 26.7
[2020-09-12 09:43] LABS: Hematocrit 40.6 % (37-47); Hemoglobin 12.5 g/dL (12.0-15.0); Mean Corp Hgb Conc 30.8 g/dL (32-36); Mean Corpuscular Hgb 32.1 pg (27.0-32.0); Mean Corpuscular Volume 104.4 fL (81-99); Mean Platelet Vol. 10.8 fl (6.2-12.0); Platelet Count 178 K/mm3 (150-450); RBC Distribution Width SD 49.8 fl (35.1-43.9); Red Blood Count 3.89 M/mm3 (4.2-5.4); White Blood Count 8.8 K/mm3 (4.4-11.0)
[2020-09-12 10:09] LABS: Vitamin D,25 Hydroxy 48.6 ng/mL
[2020-09-12 10:12] LABS: ALB/GLOB Ratio 0.8 RATIO (0.9-2.4); AST(SGOT) 13 U/L (15-37); Alanine Aminotransfer ALT/SGPT 21 U/L (13-56); Albumin, Serum 3.4 g/dL (3.2-5.0); Alkaline Phosphatase 78 U/L (45-117); Anion Gap 4 (5-15); BUN 19 mg/dL (7-18); Calcium,Total 9.4 mg/dL (8.5-10.1); Chloride 97 mmol/L (98-107); Cholesterol 183 mg/dL (200); Creatinine, Serum 0.86 mg/dL (0.55-1.02); EST Glomerular Filtration Rate 71 mL/min (>60); Est Glom Filt Rate - Afr Amer 85 mL/min (>60); Globulin 4.2 g/dL (2.2-4.2); Glucose 92 mg/dL (74-106); High Density Lipoprotein 67 mg/dL; Potassium 3.8 mmol/L (3.5-5.1); Protein, Total 7.6 g/dL (6.4-8.2); Sodium Level 140 mmol/L (136-145); Triglycerides 133 mg/dL; Very Low Density Lipoprotein 27 mg/dL (5-40)
== END ==
PROVIDERS: PCP Nurse Practitioner Family; Referring Provider Nurse Practitioner Family; Visit Provider Nurse Practitioner Family
DX: I10 Essential (primary) hypertension (principal); N28.9 Disorder of kidney and ureter, unspecified; E78.5 Hyperlipidemia, unspecified; E55.9 Vitamin D deficiency, unspecified
CPT/HCPCS: 36415; 80053; 80061; 82306; 85027

== ENCOUNTER 2022-03-25 06:06 | Emergency (ER) | payer OTHER, SELFPAY ==
[2022-03-25 06:07] VITALS: BP 205/89; PULSE 73; RESP 22; TEMP 36.4; O2SAT 93; BMI 27.3
[2022-03-25 06:13] VITALS: O2SAT 96
[2022-03-25 06:14] VITALS: PULSE 65; RESP 15; O2SAT 97
--- NOTE | 2022-03-25 06:28 | RAD_ITS ---
EXAM: XR CHEST, 1 VIEW CLINICAL INDICATION: dyspnea TECHNIQUE: Frontal view of the chest. This report was created using [employer] report generation technology. COMPARISON: Previous chest radiographs of 02/26/2019 and 02/01/2019. FINDINGS: LUNGS AND PLEURAL SPACES: Findings of pulmonary emphysema are redemonstrated with hyperinflation of the lungs and pruning of the peripheral pulmonary vascular markings. No acute pulmonary infiltrates or pleural effusions are identified. No pneumothorax. HEART: Heart size is upper normal. No pulmonary venous hypertension is noted. MEDIASTINUM: The pulmonary jak are stable as compared to prior studies. Thoracic aorta is not elongated. BONES/JOINTS: Thoracic degenerative spurring. Osseous structures are demineralized. No acute osseous abnormality. SOFT TISSUES: Unremarkable. RAD/Chest 1 View (Portable) IMPRESSION: 1. Pulmonary emphysema. 2. No superimposed pneumonia or pulmonary edema. Electronically Signed: Neil Light MD at 7:18 EST ,
[2022-03-25] MEDS: Ipratropium/Albuterol Sulfate 3 ML AMPUL.NEB INHALATION (06:41)
[2022-03-25 06:42] VITALS: PULSE 67; RESP 14; O2SAT 96
[2022-03-25] MEDS: Albuterol 2.5 MG/3 ML VIAL.NEB. INHALATION (06:52)
[2022-03-25 06:53] LABS: Absolute Neutrophil Count 4.3 X10^3/uL (2.0-7.7); Basophil# 0.04 X10^3/uL; Basophil% 0.7 % (0-1); Eosinophils% 3.3 % (0-5); Hematocrit 43.5 % (37-47); Hemoglobin 14.3 g/dL (12.0-15.0); Lymphocyte % 19.8 % (19-41); Mean Corp Hgb Conc 32.9 g/dL (32-36); Mean Corpuscular Volume 100.5 fL (81-99); Mean Platelet Vol. 10.9 fl (6.2-12.0); Monocyte# 0.31 X10^3/uL; Monocyte% 5.1 % (0-10); NRBC Flagged by Analyzer 0 % (0-5); Neutrophil # 4.31 X10^3/uL (2.7-7.7); Neutrophil % 70.9 % (47-70); Platelet Count 146 K/mm3 (150-450); RBC Distribution Width CV 11.5 % (11.6-14.6); RBC Distribution Width SD 42.5 fl (35.1-43.9); Red Blood Count 4.33 M/mm3 (4.2-5.4); White Blood Count 6.1 K/mm3 (4.4-11.0)
[2022-03-25] MEDS: MethylPREDNISolone 125 MG/2 ML Vial IV (06:55)
[2022-03-25 07:06] LABS: Anion Gap 1 (5-15); BUN 11 mg/dL (7-18); BUN/Creat Ratio 14.5 RATIO (10-20); Calcium,Total 9.6 mg/dL (8.5-10.1); Chloride 97 mmol/L (98-107); Creatinine, Serum 0.76 mg/dL (0.55-1.02); EST Glomerular Filtration Rate 81 mL/min (>60); Est Glom Filt Rate - Afr Amer 98 mL/min (>60); Estimated Creatinine Clearance 53.01 ml/min; Glucose 108 mg/dL (74-106); Magnesium 1.5 mg/dL (1.6-2.6); Potassium 3.8 mmol/L (3.5-5.1); Sodium Level 141 mmol/L (136-145)
--- NOTE | 2022-03-25 07:40 | EX.ED.DYSGE1 ---
HPI History of Present Illness Chief Complaint: Shortness of Breath Narrative Narrative: Patient is a six 7-year-old female with history of COPD who currently wears 3 L nasal cannula oxygen 02/09. She states she is wearing her oxygen as directed but over the past 2 to 3 days has been having mild increased shortness of breath despite taking her medications. She states he awoke this morning and has shortness of breath despite using her inhaler and oxygen and felt like her symptoms had worsened from the previous days and secondary to this presents for evaluation. [facility] Medical History (Updated 03/26/22 @ 22:[address] Francesco Garcia, DO) Anxiety Arthritis Depression Former smoker High cholesterol Hx of echocardiogram Hypertension Hypoxemia Stage 3 severe COPD by GOLD classification Tobacco abuse Wears dentures Wears glasses Home Medications albuterol sulfate 90 mcg/actuation aerosol inhaler 1 - 2 puff inhalation Q4H PRN Sob &/Or Wheezing 02/01/19 [History Last Taken Unknown] carvedilol 12.5 mg tablet 12.5 mg PO BID blood pressure 02/01/19 [History Last Taken 02/01/19] ipratropium 0.5 mg-albuterol 3 mg (2.5 mg base)/3 mL nebulization soln 3 ml inhalation Q6H.RT PRN Sob &/Or Wheezing 02/01/19 [History Last Taken 01/31/19] multivitamin 1 cap PO DAILY 08/17/20 [History Last Taken Unknown] omega-3 fatty acids 1,000 mg PO BID 08/17/20 [History Last Taken Unknown] atorvastatin 20 mg tablet 20 mg PO QHS 03/25/22 [History Last Taken Unknown] fluticasone furoate 100 mcg-vilanterol 25 mcg/dose inhalation powder (Breo Ellipta) 1 inh inhalation DAILY #60 ea 03/25/22 [Rx Last Taken Unknown] ipratropium 0.5 mg-albuterol 3 mg (2.5 mg base)/3 mL nebulization soln 3 ml inhalation Q6H PRN shortness of breath or wheezing #180 mL 03/25/22 [Rx Last Taken Unknown] prednisone 20 mg tablet 40 mg PO DAILY 5 days #10 tabs 03/25/22 [Rx Last Taken Unknown] ramipril 10 mg capsule 10 mg PO QHS 03/25/22 [History Last Taken Unknown] ramipril 2.5 mg tablet 2.5 mg PO DAILY 03/25/22 [History Last Taken Unknown] Allergy/AdvReac Type Severity Reaction Status Date / Time propoxyphene [From Darvon] AdvReac Nausea/Vom/ Verified 03/25/22 06:14 Diarrhea Family History Mother Heart disease Surgical History History of History of cholecystectomy History of hysterectomy Hx of cystoscopy Social History Smoking Status: Former smoker ROS ROS ED Constitutional Constitutional ED: Denies chills or fever(s) ENT ENT ED: Denies rhinorrhea or sore throat Cardiovascular Cardiovascular: Denies chest pain Respiratory/Chest Respiratory/Chest: Reports cough and dyspnea Gastrointestinal Gastrointestinal: Denies abdominal pain, diarrhea, nausea or vomiting Genitourinary Genitourinary ED: Denies dysuria Musculoskeletal Musculoskeletal: Denies myalgias Integumentary Denies rash Neurologic Neurologic: Denies headache(s) Hematologic/Lymphatic Hematologic/Lymphatic: Denies easy bleeding or easy bruising EXAM Physical Exam Const Vital Signs: 03/25/22 06:07 03/25/22 06:13 03/25/22 06:14 Temperature 97.6 F L Temperature Source Temporal Pulse Rate 73 65 Respiratory Rate 22 H 15 Respiratory Effort Short of Breath Respiratory Depth Normal Respiratory Pattern Normal Blood Pressure 205/89 H Blood Pressure Mean 127 Pulse Ox 93 97 Oxygen Delivery Method Room Air Nasal Cannula Nasal Cannula Oxygen Flow Rate (L/min) 3 3 03/25/22 06:42 03/25/22 06:42 Temperature Temperature Source Pulse Rate 67 Respiratory Rate 14 Respiratory Effort Respiratory Depth Respiratory Pattern Blood Pressure Blood Pressure Mean Pulse Ox 96 Oxygen Delivery Method Nasal Cannula Oxygen Flow Rate (L/min) 3 Positive well nourished and well developed General Appearance ED: well developed HEENT Reports moist mucous membranes HEENT Narrative: No tongue or lip swelling no oral lesions no airway edema or compromise Eyes PERRL and EOMs intact bilaterally Neck supple and no JVD Resp Resp Narrative: Patient is tachypneic with diminished breath sounds throughout and diffuse expiratory wheezing. No nasal flaring or retractions noted Cardio regular rate and regular rhythm GI normal to inspection, nondistended, normoactive bowel sounds, non-tender, non-distended and no masses Auscultation: normoactive bowel sounds Palpation: soft Extremity normal to inspection Extremity Narrative: No asymmetric edema no pitting edema negative Homans' sign bilaterally Neuro oriented x3 and CN's II-XII intact bilaterally Sensorium / Orientation: alert Psych mental status grossly normal Skin no rashes or lesions noted MDM MDM MDM Narrative Medical decision making narrative: Patient presented to the ER hypertensive but has a past medical history of this so this was not unexpected. She had mild respiratory distress with tachypnea and diffuse inspiratory wheezes and with her history of COPD on oxygen there is concern she is having a COPD exacerbation versus development of pneumonia or spontaneous pneumothorax. Basic blood work was obtained which revealed no clinically significant findings such as severe electrolyte derangement or signs of acute kidney injury. Chest x-ray revealed emphysema changes without acute infiltrate or pneumothorax. Patient was given steroids and breathing treatments and had improvement of her symptoms. At this time she is not requiring any further noninvasive ventilation or excessive oxygen from her baseline and she has no signs of endorgan damage from her hypertension so she is safe for discharge with symptomatic care. Lab Data Attestation: I reviewed the patient's lab results. Labs: Laboratory Results - last 24 hr 03/25/22 03/25/22 06:40 06:40 WBC 6.1 RBC 4.33 Hgb 14.3 Hct 43.5 MCV 100.5 H MCH 33.0 H MCHC 32.9 RDW Std Deviation 42.5 RDW Coeff of [place] 11.5 L Plt Count 146 L MPV 10.9 Immature Gran % (Auto) 0.200 Neut % (Auto) 70.9 H Lymph % (Auto) 19.8 Weld % (Auto) 5.1 Eos % (Auto) 3.3 Baso % (Auto) 0.7 Absolute Neuts (auto) 4.3 Absolute Lymphs (auto) 1.20 Nucleated RBC % 0 Sodium 141 Potassium 3.8 Chloride 97 L Carbon Dioxide 43.0 H Anion Gap 1 L BUN 11 Creatinine 0.76 Estim Creat Clear Calc 53.01 Est GFR (MDRD) Af Amer 98 Est GFR (MDRD) Non-Af 81 BUN/Creatinine Ratio 14.5 Glucose 108 H Calcium 9.6 Magnesium 1.5 L Radiography Diagnostic Testing: Clinical Impression(s) from Imaging Studies Chest X-Ray 03/25/22 06:28 IMPRESSION: 1. Pulmonary emphysema. 2. No superimposed pneumonia or pulmonary edema. Electronically Signed: Neil Light MD at 7:18 EST , Chest x-ray as interpreted by the emergency medicine physician reveals pulmonary emphysema without acute infiltrate pneumothorax or pleural effusion Discharge Plan Triage Chief Complaint: Shortness of Breath ED Provider: Francesco Garcia Dx/Rx/DC Orders Clinical Impression: Acute exacerbation of chronic obstructive pulmonary disease, Tobacco abuse, Hypertension Instructions: COPD: Wheezing and Chest Tightness Prescriptions: New ipratropium-albuterol 0.5 mg-3 mg(2.5 mg base)/3 mL solution for nebulization 3 ml inhalation Q6H PRN (Reason: shortness of breath or wheezing) Qty: 180 1RF prednisone 20 mg tablet 40 mg PO DAILY 5 Days Qty: 10 0RF fluticasone furoate-vilanterol [Breo Ellipta] 100-25 mcg/dose blister with device 1 inh inhalation DAILY Qty: 60 2RF No Action carvedilol 12.5 MG tablet 12.5 mg PO BID Label Comments: TAKE 1 TABLET BY MOUTH TWICE DAILY FOR HYPERTENSION ipratropium-albuterol 3 ML solution for nebulization 3 ml inhalation Q6H.RT PRN (Reason: Sob &/Or Wheezing) albuterol sulfate 18 GM HFA aerosol inhaler 1 - 2 puff inhalation Q4H PRN (Reason: Sob &/Or Wheezing) Label Comments: INHALE 2 PUFFS BY MOUTH EVERY 4 HOURS NEEDED multivitamin Capsule 1 cap PO DAILY omega-3 fatty acids Capsule 1,000 mg PO BID atorvastatin 20 mg tablet 20 mg PO QHS ramipril 2.5 mg Tablet 2.5 mg PO DAILY ramipril 10 mg capsule 10 mg PO QHS Stand Alone Forms: ED Work / School Excuse Primary Care Provider: Aki Velazquez NP Referrals: Aki Velazquez VETERINARY PRACTICE MANAGER, VETERINARY PRACTICE MANAGER-C [Primary Care Provider] - Activity Restrictions/Additional Instructions: Your work-up today does not show any signs of pneumonia or electrolyte derangement. Use your DuoNeb nebulizers 4-6 times a day to help with shortness of breath while the steroids are reducing inflammation. Continue to wear your oxygen as directed by your sales attendant building materials and return to the ER should you have any further concerns Disposition Disposition: Home, Self Care Discharge Date/Time: 03/25/22 07:58
[2022-03-25 07:57] VITALS: BP 177/94; PULSE 69; RESP 18; O2SAT 95
== END 2022-03-25 07:58 | disposition home or self-care (01) ==
PROVIDERS: Emergency Provider Emergency Medicine; PCP Nurse Practitioner Family; Visit Provider Emergency Medicine
DX: J44.1 Chronic obstructive pulmonary disease with (acute) exacerbation (principal); E78.00 Pure hypercholesterolemia, unspecified; Z87.891 Personal history of nicotine dependence; I10 Essential (primary) hypertension; R06.02 Shortness of breath; Z79.52 Long term (current) use of systemic steroids
CPT/HCPCS: 71045; 80048; 83735; 85025; 94640; 96374; 99285; A4216

== ENCOUNTER 2022-09-16 19:17 | Inpatient (IN) | payer OTHER, SELFPAY ==
[2022-09-16] VITALS (9 sets, daily range): BP systolic 146–209; BP diastolic 85–114; PULSE 71–79; RESP 16–19; TEMP 36.2–36.3; O2SAT 91–99; BMI 27.0; BMI 25.6
--- NOTE | 2022-09-16 19:31 | EKG12_ITS ---
Test Reason : DYSRHYTHMIA Blood Pressure : / mmHG Vent. Rate : 062 BPM Atrial Rate : 062 BPM P-R Int : 190 ms QRS Dur : 144 ms QT Int : 464 ms P-R-T Axes : 078 049 091 degrees QTc Int : 470 ms Normal sinus rhythm Right bundle branch block Abnormal ECG Confirmed by RUPESH HUI, RK ([id number]), order editor CODY YOUNG ([id number]) on 09/17/2022 9:41:06 AM Referred By: BB Confirmed By:RK GODDARD MD
[2022-09-16] MEDS: Ipratropium/Albuterol Sulfate 3 ML AMPUL.NEB INHALATION (19:38)
[2022-09-16] MEDS: Albuterol 2.5 MG/3 ML VIAL.NEB. INHALATION ×3 (19:38→20:19)
--- NOTE | 2022-09-16 19:48 | EDS_ITS ---
HPI History of Present Illness Chief Complaint: Shortness of Breath Informant: patient Onset/Context/Timing Onset: Days (2) Context: gradual and onset Timing: Continuous Associated Symptoms cough Chest Pain: Positive for Intermittent and Sharp (Left upper chest without radiation) Narrative Narrative: Patient feels like her COPD has been flaring up for the last couple days, initially albuterol was helping a little but now it is not. She is having some random left upper chest sharp pains that are nonpleuritic. She is coughing but just barely, it is nonproductive, no hemoptysis. Mild swelling in her ankles bilaterally. Some orthopnea which is new as well. No known history of congestive heart failure. She is on home oxygen 3 L. [facility] Medical History (Updated 09/16/22 @ 21:[address] Angelic Wood MD) Anxiety and depression Arthritis Chronic hypoxemic respiratory failure Former smoker High cholesterol Hypertension Stage 4 very severe COPD by GOLD classification Wears dentures Wears glasses Home Medications albuterol sulfate 90 mcg/actuation aerosol inhaler 1 - 2 puff inhalation Q4H PRN Sob &/Or Wheezing 02/01/19 [History Last Taken Unknown] carvedilol 12.5 mg tablet 12.5 mg PO BID blood pressure 02/01/19 [History Last Taken 02/01/19] ipratropium 0.5 mg-albuterol 3 mg (2.5 mg base)/3 mL nebulization soln 3 ml inhalation Q6H.RT PRN Sob &/Or Wheezing 02/01/19 [History Last Taken 01/31/19] multivitamin 1 cap PO DAILY 08/17/20 [History Last Taken Unknown] omega-3 fatty acids 1,000 mg PO BID 08/17/20 [History Last Taken Unknown] atorvastatin 20 mg tablet 20 mg PO QHS 03/25/22 [History Last Taken Unknown] fluticasone furoate 100 mcg-vilanterol 25 mcg/dose inhalation powder (Breo Ellipta) 1 inh inhalation DAILY #60 ea 03/25/22 [Rx Last Taken Unknown] ipratropium 0.5 mg-albuterol 3 mg (2.5 mg base)/3 mL nebulization soln 3 ml inhalation Q6H PRN shortness of breath or wheezing #180 mL 03/25/22 [Rx Last Taken Unknown] prednisone 20 mg tablet 40 mg (2 x 20 mg) PO DAILY 5 days #10 tabs 03/25/22 [Rx Last Taken Unknown] ramipril 10 mg capsule 10 mg PO QHS 03/25/22 [History Last Taken Unknown] ramipril 2.5 mg tablet 2.5 mg PO DAILY 03/25/22 [History Last Taken Unknown] Allergy/AdvReac Type Severity Reaction Status Date / Time propoxyphene [From Darvon] AdvReac Nausea/Vom/ Verified 09/16/22 19:17 Diarrhea Family History (Updated 09/16/22 @ 21:[address] Angelic Wood MD) Mother Heart disease Father No problems noted. Surgical History History of History of cholecystectomy History of hysterectomy Hx of cystoscopy Social History household members: none Smoking Status: Former smoker alcohol intake: never substance use type: does not use ROS ROS ED Constitutional Constitutional ED: Denies chills or fever(s) Eyes Eyes: Denies change in vision or diplopia ENT ENT ED: Denies rhinorrhea or sore throat Cardiovascular Cardiovascular: Reports chest pain and orthopnea; Denies palpitations or racing heartbeat Respiratory/Chest Respiratory/Chest: Reports cough, dyspnea, dyspnea on exertion and orthopnea Gastrointestinal Gastrointestinal: Denies abdominal pain, diarrhea, nausea or vomiting Genitourinary Genitourinary ED: Denies dysuria or hematuria Musculoskeletal Musculoskeletal: Denies back pain or neck pain Integumentary Denies abscess or rash Neurologic Neurologic: Denies headache(s), paresthesias or weakness Psychiatric Psychiatric: Denies anxiety or suicidal thoughts EXAM Physical Exam Const Vital Signs: 09/16/22 19:18 09/16/22 19:22 09/16/22 19:21 Temperature 97.2 F L 97.2 F L Temperature Source Temporal Temporal Pulse Rate 73 73 Respiratory Rate 18 18 Respiratory Effort Short of Breath Respiratory Depth Normal Respiratory Pattern Normal Blood Pressure 209/105 H 209/105 H Blood Pressure Mean 139 139 Pulse Ox 99 99 Oxygen Delivery Method Nasal Cannula Nasal Cannula Nasal Cannula Oxygen Flow Rate (L/min) 3 3 09/16/22 19:38 09/16/22 20:17 Temperature Temperature Source Pulse Rate 71 79 Respiratory Rate 18 19 H Respiratory Effort Respiratory Depth Respiratory Pattern Normal Blood Pressure 146/114 H Blood Pressure Mean 124 Pulse Ox 91 Oxygen Delivery Method Room Air Oxygen Flow Rate (L/min) Positive well nourished and well developed General Appearance ED: well developed and NAD HEENT Reports moist mucous membranes normocephalic and atraumatic Eyes PERRL and EOMs intact bilaterally Neck full ROM and supple Resp Resp Narrative: Diffusely diminished with end expiratory wheezes and prolonged expiratory phase. Trachea midline. Equal breath sounds bilaterally. Some accessory muscle use, but no significant distress. Cardio regular rate, regular rhythm and no murmurs Rate: Negative for tachycardic GI non-tender and non-distended Auscultation: normoactive bowel sounds Palpation: soft Back/Spine no CVA tenderness General Back: other FROM Extremity normal to inspection General Extremety ED: Yes edema; Negative for pulses abnormal or tenderness General Extremity: edema bilateral lower extremity Details: trace; Negative for pulses abnormal Neuro oriented x3, CN's II-XII intact bilaterally and no sensory deficits noted Sensorium / Orientation: awake and alert Motor Exam: strength 5/5 throughout Skin no rashes or lesions noted and no wounds MDM MDM MDM Narrative Medical decision making narrative: Work-up includes a BNP at only 21 as well as a troponin that is normal, her EKG shows no acute injury pattern, concerned about cardiac etiology because her blood pressure is so high at 209/105 initial evaluation, and she has orthopnea that is new. These tests are very reassuring. Furthermore she does not have a leukocytosis, her symptoms improved with nebulizer treatments although only partially, and her chest x-ray 2 views of my interpretation shows no pulmonary edema or acute infiltrate. Repeat blood pressure is 179/103. Additionally added a dose of hydralazine, and Solu-Medrol, as well as terbutaline. She did not have significant relief from any of this although her blood pressure is down to 140s. She is still borderline tripoding but I do not think she needs to be admitted to the ICU. She definitely is opened up a little compared with prior and she agrees that she is breathing easier, but too dyspneic to go home even after all set of nebulizer treatments and terbutaline. Will admit. Discussed with hospitalist. Lab Data Attestation: I reviewed the patient's lab results. Labs: Laboratory Results - last 24 hr 09/16/22 19:42 WBC 7.3 RBC 4.47 Hgb 14.7 Hct 44.0 MCV 98.4 MCH 32.9 H MCHC 33.4 RDW Std Deviation 43.8 RDW Coeff of [place] 12.0 Plt Count 132 L MPV 11.2 Immature Gran % (Auto) 0.400 Neut % (Auto) 70.9 H Lymph % (Auto) 19.8 [place] % (Auto) 6.2 Eos % (Auto) 2.2 Baso % (Auto) 0.5 Absolute Neuts (auto) 5.2 Absolute Lymphs (auto) 1.44 Nucleated RBC % 0 Sodium 142 Potassium 3.5 Chloride 101 Carbon Dioxide 38.0 H Anion Gap 3 L BUN 13 Creatinine 0.88 Estim Creat Clear Calc 62.88 Est GFR (MDRD) Af Amer 83 Est GFR (MDRD) Non-Af 68 BUN/Creatinine Ratio 14.8 Glucose 109 H Calcium 9.9 Troponin I High Sens 11 B-Natriuretic Peptide 21.4 Rhythm Strip Rhythm Strip: Sinus Rhythm Rate: 62 Ectopy: None EKG Initial EKG: Attestation: I personally reviewed and interpreted this EKG as follows: Interpretation: Sinus Rhythm, No Acute Injury Pattern and RBBB Prior EKG tracings: available for review Prior: Unchanged Management Discussion w/another healthcare provider: Hospitalist Discharge Plan Triage Chief Complaint: Shortness of Breath ED Provider: Abhi Laguna Dx/Rx/DC Orders Clinical Impression: Acute on chronic respiratory failure with hypoxia, Acute exacerbation of chronic obstructive pulmonary disease (COPD) Prescriptions: No Action carvedilol 12.5 MG tablet 12.5 mg PO BID Patient Comments: TAKE 1 TABLET BY MOUTH TWICE DAILY FOR HYPERTENSION ipratropium-albuterol 3 ML solution for nebulization 3 ml inhalation Q6H.RT PRN (Reason: Sob &/Or Wheezing) albuterol sulfate 18 GM HFA aerosol inhaler 1 - 2 puff inhalation Q4H PRN (Reason: Sob &/Or Wheezing) Patient Comments: INHALE 2 PUFFS BY MOUTH EVERY 4 HOURS NEEDED multivitamin Capsule 1 cap PO DAILY omega-3 fatty acids Capsule 1,000 mg PO BID atorvastatin 20 mg tablet 20 mg PO QHS ramipril 2.5 mg Tablet 2.5 mg PO DAILY ramipril 10 mg capsule 10 mg PO QHS ipratropium-albuterol 0.5 mg-3 mg(2.5 mg base)/3 mL solution for nebulization 3 ml inhalation Q6H PRN (Reason: shortness of breath or wheezing) Qty: 180 1RF prednisone 20 mg tablet 40 mg PO DAILY 5 Days Qty: 10 0RF fluticasone furoate-vilanterol [Breo Ellipta] 100-25 mcg/dose blister with device 1 inh inhalation DAILY Qty: 60 2RF Primary Care Provider: Aki Velazquez NP Referrals: Aki Velazquez NP, [employer] [Primary Care Provider] - Disposition Disposition: Acute Care Hospital [facility]
[2022-09-16 20:06] LABS: Absolute Lymphocyte Count 1.44 X10^3/uL (0.83-4.51); Absolute Neutrophil Count 5.2 X10^3/uL (2.0-7.7); Basophil# 0.04 X10^3/uL; Basophil% 0.5 % (0-1); Eosinophil# 0.16 X10^3/uL; Eosinophils% 2.2 % (0-5); Hemoglobin 14.7 g/dL (12.0-15.0); Lymphocyte # 1.44 X10^3/ul (0.83-4.51); Lymphocyte % 19.8 % (19-41); Mean Corp Hgb Conc 33.4 g/dL (32-36); Mean Corpuscular Hgb 32.9 pg (27.0-32.0); Mean Corpuscular Volume 98.4 fL (81-99); Mean Platelet Vol. 11.2 fl (6.2-12.0); Monocyte# 0.45 X10^3/uL; Monocyte% 6.2 % (0-10); NRBC Flagged by Analyzer 0 % (0-5); Neutrophil # 5.17 X10^3/uL (2.7-7.7); Neutrophil % 70.9 % (47-70); Platelet Count 132 K/mm3 (150-450); RBC Distribution Width SD 43.8 fl (35.1-43.9); Red Blood Count 4.47 M/mm3 (4.2-5.4); White Blood Count 7.3 K/mm3 (4.4-11.0)
[2022-09-16 20:17] LABS: BNP,B-Type NATRIURETIC PEPTIDE 21.4 pg/mL (0-100)
[2022-09-16 20:20] LABS: Anion Gap 3 (5-15); BUN 13 mg/dL (7-18); BUN/Creat Ratio 14.8 RATIO (10-20); Calcium,Total 9.9 mg/dL (8.5-10.1); Chloride 101 mmol/L (98-107); Creatinine, Serum 0.88 mg/dL (0.55-1.02); EST Glomerular Filtration Rate 68 mL/min (>60); Est Glom Filt Rate - Afr Amer 83 mL/min (>60); Estimated Creatinine Clearance 62.88 ml/min; Glucose 109 mg/dL (74-106); Potassium 3.5 mmol/L (3.5-5.1); Sodium Level 142 mmol/L (136-145); Troponin-I HS 11 pg/mL (3.0-54.0)
[2022-09-16] MEDS: hydrALAZINE 20 MG/ML Vial 10 MG IV (20:58)
[2022-09-16] MEDS: MethylPREDNISolone 125 MG/2 ML Vial IV (20:58)
[2022-09-16] MEDS: Terbutaline 1 MG/ML Vial 0.25 MG SC (20:59)
--- NOTE | 2022-09-16 21:00 | RAD_ITS ---
INDICATION: sob EXAMINATION/TECHNIQUE: X-RAY - XR Chest 2 Views COMPARISON: 03/25/2022 chest radiograph. [id number] frontal and lateral views Findings: Single frontal view of the chest. LUNG PARENCHYMA: No acute focal airspace disease or mass lesion. PLEURA: No pleural effusion. No pneumothorax. HEART/GREAT VESSELS: Cardiomediastinal silhouette is unremarkable. BONES: Osseous structures are unremarkable for age. RAD/Chest PA and Lateral IMPRESSION: Chest with no acute disease. Electronically Signed: Reji Eden MD at 22:55 EDT ,
--- NOTE | 2022-09-16 21:13 | CPS ---
x3 Albuterol given to pt. in ER as well
--- NOTE | 2022-09-16 21:49 | HP.PCM.HOS_ITS ---
HPI - General General Date of Admission: 09/16/22 Date of Service: 09/16/22 Chief Complaint: Dyspnea, wheezing. HPI Narrative The patient is a 67 y/o F w/ PMHx: Chronic Thrombocytopenia, Anxiety and Depression, HTN, HLD, Former tobacco use, COPD stage IV w/ Chronic Hypoxic Respiratory Failure (3L NC) supposed to be on qHS trelegy but unable to afford she notes who presents to the [facility] ED on 09/16/22 with history of increased dyspnea gradually worsening over the last 48 hours with pleuritic chest discomfort specifically an intermittent and sharp left upper chest with no radiation worse with coughing with initial improvement with albuterol however it since stopped working with noted nonproductive cough and difficulty even laying flat secondary to onset of symptoms prompting eventual ED evaluation. Patient denies any recent fevers or chills. In the ED upon ED physician evaluation patient is significantly diminished with diffuse wheezing. Workup in the ED included T97.2, heart rate 73, BP initially 209/105 with most recent repeat 146/114, respiratory rate 18, 99% on 3 L nasal cannula most recently reported 91 on room air, CBC with WBC 7.3, hemoglobin 14.7, platelet 132 without marked shift, BMP with carbon oxide 38, glucose 109 otherwise unremarkable, troponin 11, BNP 21.4, EKG with sinus rhythm with no acute evidence of ischemia with right bundle branch block unchanged from prior, chest x-ray with no acute cardiopulmonary finding. In the ED patient administered hydralazine 10 mg IV x 1, DuoNeb therapy, terbutaline 0.25 mg subcu x 1, Solu-Medrol 125 mg IV x 1. COUNTS INCLUDE 234 BEDS AT THE [facility] Medical History (Updated 09/16/22 @ 21:[address] Angelic Wood MD) Anxiety and depression Arthritis Chronic hypoxemic respiratory failure Former smoker High cholesterol Hypertension Stage 4 very severe COPD by GOLD classification Wears dentures Wears glasses Home Medications albuterol sulfate 90 mcg/actuation aerosol inhaler 1 - 2 puff inhalation Q4H PRN Sob &/Or Wheezing 02/01/19 [History Last Taken Unknown] carvedilol 12.5 mg tablet 12.5 mg PO BID blood pressure 02/01/19 [History Last Taken 02/01/19] ipratropium 0.5 mg-albuterol 3 mg (2.5 mg base)/3 mL nebulization soln 3 ml inhalation Q6H.RT PRN Sob &/Or Wheezing 02/01/19 [History Last Taken 01/31/19] multivitamin 1 cap PO DAILY 08/17/20 [History Last Taken Unknown] omega-3 fatty acids 1,000 mg PO BID 08/17/20 [History Last Taken Unknown] atorvastatin 20 mg tablet 20 mg PO QHS 03/25/22 [History Last Taken Unknown] fluticasone furoate 100 mcg-vilanterol 25 mcg/dose inhalation powder (Breo Ellipta) 1 inh inhalation DAILY #60 ea 03/25/22 [Rx Last Taken Unknown] ipratropium 0.5 mg-albuterol 3 mg (2.5 mg base)/3 mL nebulization soln 3 ml inhalation Q6H PRN shortness of breath or wheezing #180 mL 03/25/22 [Rx Last Taken Unknown] prednisone 20 mg tablet 40 mg (2 x 20 mg) PO DAILY 5 days #10 tabs 03/25/22 [Rx Last Taken Unknown] ramipril 10 mg capsule 10 mg PO QHS 03/25/22 [History Last Taken Unknown] ramipril 2.5 mg tablet 2.5 mg PO DAILY 03/25/22 [History Last Taken Unknown] Allergy/AdvReac Type Severity Reaction Status Date / Time propoxyphene [From Darvon] AdvReac Nausea/Vom/ Verified 09/16/22 19:17 Diarrhea Family History (Updated 09/16/22 @ 22:[address] Angelic Wood MD) Mother Heart disease Father Alcoholism Surgical History History of History of cholecystectomy History of hysterectomy Hx of cystoscopy Social History (Updated 09/16/22 @ 22:[address] Angelic Wood MD) household members: none Smoking Status: Former smoker how long ago did patient quit smoking: Quit 2 months prior to current 09/16/22 presentation. alcohol intake: never substance use type: does not use ROS ROS Narrative Admission Review of Systems: CONSTITUTIONAL: No weight loss, fever, chills, + weakness or fatigue. HEENT: Eyes: No visual loss, blurred vision, double vision or yellow sclerae. Ears, Nose, Throat: No hearing loss, sneezing, congestion, runny nose or sore throat. SKIN: No rash or itching, lesions, wounds. CARDIOVASCULAR: No chest pain, chest pressure or chest discomfort, palpitations, edema, orthopnea, syncopal events. RESPIRATORY: + shortness of breath, mild cough without marked sputum, wheezing. No hemoptysis. GASTROINTESTINAL: No anorexia, nausea, vomiting or diarrhea, abdominal pain, melena, BRBPR. GENITOURINARY: No dysuria, frequency, urgency or retention. NEUROLOGICAL: No headache, dizziness, syncope, paralysis, ataxia, numbness or tingling in the extremities, focal weakness, change in bowel or bladder control, seizure. MUSCULOSKELETAL: + muscle, back pain, joint pain or stiffness. HEMATOLOGIC: No anemia, bleeding or bruising. LYMPHATICS: No enlarged nodes. No history of splenectomy. PSYCHIATRIC: + history of depression or anxiety. ENDOCRINOLOGIC: No reports of sweating, cold or heat intolerance. No polyuria or polydipsia. ALLERGIES: + history of rhinitis. Vital Signs Vital Signs Vital Signs: 09/16/22 19:18 09/16/22 19:22 09/16/22 19:21 Temperature 97.2 F L 97.2 F L Temperature Source Temporal Temporal Pulse Rate 73 73 Respiratory Rate 18 18 Respiratory Effort Short of Breath Respiratory Depth Normal Respiratory Pattern Normal Blood Pressure 209/105 H 209/105 H Blood Pressure Mean 139 139 Pulse Ox 99 99 Oxygen Delivery Method Nasal Cannula Nasal Cannula Nasal Cannula Oxygen Flow Rate (L/min) 3 3 09/16/22 19:38 09/16/22 20:17 Temperature Temperature Source Pulse Rate 71 79 Respiratory Rate 18 19 H Respiratory Effort Respiratory Depth Respiratory Pattern Normal Blood Pressure 146/114 H Blood Pressure Mean 124 Pulse Ox 91 Oxygen Delivery Method Room Air Oxygen Flow Rate (L/min) Weight Weight: 137 lb 12.623 oz Body Mass Index (BMI) 27.0 Physical Exam Narrative Physical Examination: General: Awake, alert, oriented x 3 and cooperative, seated upright at the ED bedside, notes feeling improved since initial ED arrival. Skin: Normal color, normal turgor, no icterus, no cyanosis. HEENT: AT/NC, EOMI, PERRLA, MMM, no carotid bruits or JVD noted. Lungs: Significantly diminished, greater bases, mildly increased respiratory rate but in distress, occasional end expiratory wheeze but less then initially described per ED physician, no rales or rhonchi. Heart: Currently regular rate and rhythm; no gallop, rub audible. Abdomen: Soft, NTTP, ND, normal BS, no HSM. Extremities: No cyanosis, no clubbing, no marked peripheral pitting edema noted. Neurological: Patient awake, alert, oriented as noted, cognitive function intact; pupils equally reactive to light and accommodation, cranial nerves II- XII grossly normal, moving all 4 extremities, no focal deficits, strength severely globally decreased secondary to acute presentation Psychiatric: Affect appears flat, fatigued, no acute evidence of depressive or anxiety feelings but does have underlying history. Results Lab / Micro Data 09/16/22 19:42 09/16/22 19:42 Labs: Laboratory Results - last 24 hr 09/16/22 19:42: WBC 7.3, RBC 4.47, Hgb 14.7, Hct 44.0, MCV 98.4, MCH 32.9 H, MCHC 33.4, RDW Std Deviation 43.8, RDW Coeff of [place] 12.0, Plt Count 132 L, MPV 11.2, Immature Gran % (Auto) 0.400, Neut % (Auto) 70.9 H, Lymph % (Auto) 19.8, [place] % (Auto) 6.2, Eos % (Auto) 2.2, Baso % (Auto) 0.5, Absolute Neuts (auto) 5.2, Absolute Lymphs (auto) 1.44, Nucleated RBC % 0, Sodium 142, Potassium 3.5, Chloride 101, Carbon Dioxide 38.0 H, Anion Gap 3 L, BUN 13, Creatinine 0.88, Estim Creat Clear Calc 62.88, Est GFR (MDRD) Af Amer 83, Est GFR (MDRD) Non-Af 68, BUN/Creatinine Ratio 14.8, Glucose 109 H, Calcium 9.9, Troponin I High Sens 11, B-Natriuretic Peptide 21.4 Rhythm Strip Rhythm Strip: Sinus Rhythm Rate: 62 Ectopy: None Assessment & Plan Assessment/Plan (1) COPD exacerbation: PLAN: Plan The patient is a 67 y/o F w/ PMHx: Chronic Thrombocytopenia, Anxiety and Depression, HTN, HLD, Former tobacco use, COPD stage IV w/ Chronic Hypoxic Respiratory Failure (3L NC) supposed to be on [facility] trelegy but unable to afford she notes who presents to the [facility] ED on 09/16/22 with history of increased dyspnea gradually worsening over the last 48 hours with pleuritic chest discomfort sp ecifically an intermittent and sharp left upper chest with no radiation worse with coughing with initial improvement with albuterol however it since stopped working with noted nonproductive cough and difficulty even laying flat secondary to onset of symptoms prompting eventual ED evaluation. #1. Acute on Chronic COPD exacerbation w/ Chronic Hypoxic Respiratory Failure: Will admit to [facility], maintain on oxygen with wean as tolerated to home oxygen supplementation, continue ATC duonebs, PRN albuterol, IV methylprednisolone, HOB, IS parameters, will obtain sputum Cx, respiratory viral panel, proc alcitonin, will hold on immediately abx therapy but low threshold to add if appropriate, will place on q HS BIPAP as supposed to be on q HS trelegy but unable to afford she notes with CM consulted. 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 #2. Hypertension: Continue home regimen including Coreg, ramipril, PRN hydralazine. #3. Hyperlipidemia: Continue home statin regimen. #4. Thrombocytopenia, chronic component noted from review of records: Possibly infectious mediated, admission platelet 132, most recent prior to this 146 and has ranged 123 up to 178, will continue to trend. #5. Former tobacco use: Encouraged continued tobacco cessation. #6. Anxiety and depression: From list currently noted not on chronic regimen, clarifying, encourage continued outpatient follow-up and evaluation. #7. DVT prophylaxis: Lovenox. Charges/Coding Visit Charges Inpatient E&M: 99489 Init Hosp L3
[2022-09-16 22:38] LABS: Procalcitonin < 0.01 ng/mL (0.00-0.09)
[2022-09-17] VITALS (13 sets, daily range): BP systolic 112–197; BP diastolic 61–100; PULSE 61–94; RESP 16–20; TEMP 36.3–36.7; O2SAT 83–96; BMI 25.9
[2022-09-17] MEDS: Atorvastatin Calcium 20 MG Tablet PO ×2 (00:12→23:41)
[2022-09-17] MEDS: Carvedilol 12.5 MG Tablet PO ×3 (00:13→17:03)
[2022-09-17] MEDS: Ramipril 10 MG Capsule PO ×2 (00:13→09:30)
[2022-09-17] MEDS: Albuterol 2.5 MG/3 ML VIAL.NEB. INHALATION (03:51)
[2022-09-17] MEDS: 0.9% Saline Lock 10 ML Syringe IV ×5 (05:17→23:44)
[2022-09-17] MEDS: Methylprednisolone Sod Succ 40 MG/ML VIAL IV ×3 (05:17→23:42)
[2022-09-17 06:56] LABS: Absolute Lymphocyte Count 0.44 X10^3/uL (0.83-4.51); Absolute Neutrophil Count 3.6 X10^3/uL (2.0-7.7); Basophil# 0.01 X10^3/uL; Basophil% 0.2 % (0-1); Hematocrit 47.4 % (37-47); Hemoglobin 15.9 g/dL (12.0-15.0); Lymphocyte # 0.44 X10^3/ul (0.83-4.51); Lymphocyte % 10.7 % (19-41); Mean Corp Hgb Conc 33.5 g/dL (32-36); Mean Corpuscular Hgb 32.9 pg (27.0-32.0); Mean Corpuscular Volume 97.9 fL (81-99); Mean Platelet Vol. 11.2 fl (6.2-12.0); Monocyte# 0.02 X10^3/uL; Monocyte% 0.5 % (0-10); NRBC Flagged by Analyzer 0 % (0-5); Neutrophil # 3.62 X10^3/uL (2.7-7.7); Neutrophil % 88.4 % (47-70); POSITIVE DIFFERENTIAL YES; Platelet Count 148 K/mm3 (150-450); RBC Distribution Width SD 43.6 fl (35.1-43.9); Red Blood Count 4.84 M/mm3 (4.2-5.4); White Blood Count 4.1 K/mm3 (4.4-11.0)
[2022-09-17] MEDS: Ipratropium/Albuterol Sulfate 3 ML AMPUL.NEB INHALATION ×4 (06:58→19:05)
[2022-09-17 07:08] LABS: Differential Indicated SCAN CRITERIA MET
[2022-09-17 07:31] LABS: AST(SGOT) 20 U/L (15-37); Alanine Aminotransfer ALT/SGPT 18 U/L (13-56); Albumin, Serum 3.7 g/dL (3.2-5.0); Alkaline Phosphatase 95 U/L (45-117); Anion Gap 4 (5-15); BUN 14 mg/dL (7-18); BUN/Creat Ratio 14.8 RATIO (10-20); Calcium,Total 9.7 mg/dL (8.5-10.1); Chloride 99 mmol/L (98-107); Creatinine, Serum 0.94 mg/dL (0.55-1.02); EST Glomerular Filtration Rate 63 mL/min (>60); Est Glom Filt Rate - Afr Amer 76 mL/min (>60); Estimated Creatinine Clearance 42.86 ml/min; Globulin 3.6 g/dL (2.2-4.2); Glucose 164 mg/dL (74-106); Potassium 3.9 mmol/L (3.5-5.1); Protein, Total 7.3 g/dL (6.4-8.2); Sodium Level 138 mmol/L (136-145)
[2022-09-17 07:32] LABS: Differential Comment SCANNED
[2022-09-17] MEDS: Ondansetron 4 MG/2 ML Vial IV (08:44)
[2022-09-17] MEDS: Acetaminophen 325 MG Tablet 650 MG PO ×3 (08:47→17:03)
[2022-09-17] MEDS: Enoxaparin 40 MG/0.4 ML Syringe SC (08:48)
--- NOTE | 2022-09-17 10:28 | PN_ITS ---
Subjective Subjective Patient seen and examined. She was admitted with a complaint of shortness of breath and is being managed for acute COPD exacerbation. She says she feels her breathing is improving this morning. She does still feel weak though. She complains of some nausea but denies vomiting. She also denies any cough. Review of systems is otherwise negative. She has remained hemodynamically stable. Objective Data Objective Data Vital Signs: Vital Signs Temp Pulse Resp BP Pulse Ox O2 Del Method O2 Flow Rate 98.1 F 72 16 158/87 H 96 Nasal Cannula 3 09/17/22 08:34 09/17/22 10:20 09/17/22 10:20 09/17/22 08:34 09/17/22 08:34 09/17/22 08:45 09/17/22 08:45 Oxygen Flow Rate (L/min) 3 Oxygen Delivery Method Nasal Cannula Weight: 132 lb 4.438 oz Body Mass Index (BMI) 25.9 Intake & Output: Intake and Output for Last 24 Hours 09/15/22 09/16/22 09/17/22 23:59 23:59 23:59 Intake Total 600 / 600 Balance 600 / 600 Lab / Micro Data 09/17/22 06:15 09/17/22 06:15 Labs: Laboratory Results - last 24 hr 09/16/22 19:42: WBC 7.3, RBC 4.47, Hgb 14.7, Hct 44.0, MCV 98.4, MCH 32.9 H, MCHC 33.4, RDW Std Deviation 43.8, RDW Coeff of [place] 12.0, Plt Count 132 L, MPV 11.2, Immature Gran % (Auto) 0.400, Neut % (Auto) 70.9 H, Lymph % (Auto) 19.8, [place] % (Auto) 6.2, Eos % (Auto) 2.2, Baso % (Auto) 0.5, Absolute Neuts (auto) 5.2, Absolute Lymphs (auto) 1.44, Nucleated RBC % 0, Sodium 142, Potassium 3.5, Chloride 101, Carbon Dioxide 38.0 H, Anion Gap 3 L, BUN 13, Creatinine 0.88, Estim Creat Clear Calc 62.88, Est GFR (MDRD) Af Amer 83, Est GFR (MDRD) Non-Af 68, BUN/Creatinine Ratio 14.8, Glucose 109 H, Calcium 9.9, Troponin I High Sens 11, B-Natriuretic Peptide 21.4 09/16/22 22:01: Procalcitonin < 0.01 09/17/22 06:15: WBC 4.1 L, RBC 4.84, Hgb 15.9 H, Hct 47.4 H, MCV 97.9, MCH 32.9 H, MCHC 33.5, RDW Std Deviation 43.6, RDW Coeff of [place] 12.0, Plt Count 148 L, MPV 11.2, Immature Gran % (Auto) 0.200, Neut % (Auto) 88.4 H, Lymph % (Auto) 10.7 L, [place] % (Auto) 0.5, Eos % (Auto) 0.0, Baso % (Auto) 0.2, Absolute Neuts (auto) 3.6, Absolute Lymphs (auto) 0.44 L, Nucleated RBC % 0, Differential Comment SCANNED, Diff Path Review June, Sodium 138, Potassium 3.9, Chloride 99, Carbon Dioxide 35.0 H, Anion Gap 4 L, BUN 14, Creatinine 0.94, Estim Creat Clear Calc 42.86, Est GFR (MDRD) Af Amer 76, Est GFR (MDRD) Non-Af 63, B UN/Creatinine Ratio 14.8, Glucose 164 H, Calcium 9.7, Total Bilirubin 0.60, AST 20, ALT 18, Alkaline Phosphatase 95, Total Protein 7.3, Albumin 3.7, Globulin 3.6, Albumin/Globulin Ratio 1.0 Micro: Microbiology 09/16/22 22:08 Mucosa - Nasopharyngeal Respiratory Panel (PCR) - Final Radiography Diagnostic Testing: Radiology Impression Chest X-Ray 09/16/22 21:00 IMPRESSION: Chest with no acute disease. Electronically Signed: Reji Eden MD at 22:55 EDT , Rhythm Strip Rhythm Strip: Sinus Rhythm Rate: 62 Ectopy: None Physical Exam Const alert, oriented x3 and no apparent distress General Appearance: cooperative HEENT normocephalic, head/scalp atraumatic, moist oral mucous membranes and oropharynx normal Eyes EOMs intact bilaterally Neck no lymphadenopathy and supple Lymph Lymphatic: no lymphadenopathy noted and no lymphedema noted Resp Resp Narrative: diminished breath sounds Cardio regular rate, regular rhythm, S1 normal heart sound, S2 normal heart sound and no murmurs GI normal to inspection, nondistended, normoactive bowel sounds, soft to palpation and non-tender Extremity normal capillary refill, no clubbing, cyanosis or edema and no calf tenderness Skin General Skin Exam: no breakdown Neuro CN's II-XII intact bilaterally, no focal motor deficits, no sensory deficits noted and deep tendon reflexes 2+ bilaterally Motor Exam: strength 5/5 throughout and general weakness Psych thought process normal and cooperative Appearance: appropriate Assessment & Plan Assessment/Plan (1) COPD exacerbation: PLAN: Plan #Acute on chronic COPD exacerbation * feels her breathing is improving. On her baseline 3L of oxygen * titrate oxygen to maintain sats >90% * breathing treatment with bronchodilators * on IV solumedrol * supposed to be on Trelegy at home but cant afford it. * #CHronic respiratory failure * on 3L of oxygen, which is her baseline. * breathing treatment with bronchodilators * titrate oxygen to maintain sats >90% * #Hypertension; on Coreg and ramipril. IV hydralazine prn #Hyperlipidemia: on statin #Thrombocytopenia: chronic. Has had thrombocytopenia since March 2022. Will will monitor Anxiety and depression; apparently not on any meds. TO follow up with PCP on outpatient basis DVT prophylaxis: lovenox Charges/Coding Visit Charges Inpatient E&M: 86807 Subs Hosp L2
--- NOTE | 2022-09-17 16:10 | CASEMGMT ---
Addendum entered by Moira Swartz 09/17/22 16:42: Pt meets criteria for Palliative referral per [facility] screening tool. Discussed Palliative w/pt and she is agreeable to referral. Order received from Dr Vincent and referral sent to [facility] via e-mail. Original Note: RN?CM?CYTOPATHOLOGY TECHNOLOGIST?CM?to room to meet with patient for initial transition planning/care coordination?assessment.?RN?CM?introduced self and role at [facility].? Pt voices understanding and consents to?assessment?at this time.? Pt resting in bed in no distress at this time.? Pt is A/O at this time and answers all questions appropriately.?? Care providers, pharmacy, and demographics verified/updated at this time. PCP: Aki Patterson NP Specialists: Preferred Pharmacy: [facility] Retail Insurance: [employer] Prescription Benefit: yes, [employer] Living Will/HPOA: Pt states does not have LW/HPOA and declines info at this time. She was made aware she can schedule appt w/SW as an OP if she decides she would like to complete in the future. LNOK: Dtr, Charice Living Arrangements: Pt lives w/her dtr, Bull, in 2-story home w/3 steps to enter. FFSU. Pt is independent w/ADL's. Dtr and pt share home mgnt tasks. Transportation: Pt states drives self and states no transportation concerns at this time. Her dtr does not drive. She states she will try and find a friend who can take her home @ d/c. DME: Pt has a pulse ox and nebulizer and has access to a shower chair that is her dtr's, but pt does not usually use it. Pt has O2 through [employer] @ 3 l/m continuously. Pt has a concentrator and portable o2 tanks. She states if she can find a friend who can take her home @ d/c, she will also ask them if they can stop @ her house to mixing picker tender the portable O2 tank for her to go home on. HHC/SNF: Pt states no HHC or SNF in the past. Pt wishes to return home and states has no concerns with going home at time of discharge.? CM?to follow for any increase in home oxygen needs and any further discharge planning/needs.? Pt voices no further concerns/needs at this time.? Advised pt to ask for?CM?if any further questions/concerns/needs arise.? Voices understanding. PLAN:?Home. Follow for any increase in O2 needs @ d/c. [place] BSN?RN?CM
[2022-09-17] MEDS: proCHLORPERazine 10 MG/2 ML Vial 5 MG IV (16:20)
--- NOTE | 2022-09-17 22:09 | NURSING ---
Pt watching tv. po 83% on 3lnc. 02 increased to 4lnc and pt encourage to take deep breaths. po 94% at this time
[2022-09-18 00:21] VITALS: O2SAT 93
[2022-09-18 06:00] VITALS: BMI 26.2
[2022-09-18 06:11] VITALS: BP 144/76; PULSE 57; RESP 18; TEMP 36.6; O2SAT 94
[2022-09-18] MEDS: Methylprednisolone Sod Succ 40 MG/ML VIAL IV (06:14)
[2022-09-18] MEDS: 0.9% Saline Lock 10 ML Syringe IV (06:14)
[2022-09-18 07:01] LABS: Absolute Lymphocyte Count 0.71 X10^3/uL (0.83-4.51); Absolute Neutrophil Count 13.3 X10^3/uL (2.0-7.7); Basophil# 0.02 X10^3/uL; Basophil% 0.1 % (0-1); Hematocrit 46.3 % (37-47); Hemoglobin 14.8 g/dL (12.0-15.0); Lymphocyte # 0.71 X10^3/ul (0.83-4.51); Lymphocyte % 4.9 % (19-41); Mean Corpuscular Hgb 32.6 pg (27.0-32.0); Mean Platelet Vol. 11.7 fl (6.2-12.0); Monocyte# 0.25 X10^3/uL; Monocyte% 1.7 % (0-10); NRBC Flagged by Analyzer 0 % (0-5); Neutrophil # 13.33 X10^3/uL (2.7-7.7); Neutrophil % 92.6 % (47-70); Platelet Count 149 K/mm3 (150-450); RBC Distribution Width SD 45.2 fl (35.1-43.9); Red Blood Count 4.54 M/mm3 (4.2-5.4); White Blood Count 14.4 K/mm3 (4.4-11.0)
[2022-09-18 07:25] VITALS: PULSE 66; RESP 18; O2SAT 94
[2022-09-18] MEDS: Ipratropium/Albuterol Sulfate 3 ML AMPUL.NEB INHALATION ×2 (07:25→11:34)
[2022-09-18 07:32] LABS: Anion Gap 3 (5-15); BUN 23 mg/dL (7-18); BUN/Creat Ratio 20.7 RATIO (10-20); Calcium,Total 9.4 mg/dL (8.5-10.1); Chloride 97 mmol/L (98-107); Creatinine, Serum 1.11 mg/dL (0.55-1.02); EST Glomerular Filtration Rate 52 mL/min (>60); Est Glom Filt Rate - Afr Amer 63 mL/min (>60); Estimated Creatinine Clearance 36.29 ml/min; Glucose 165 mg/dL (74-106); Potassium 3.9 mmol/L (3.5-5.1); Sodium Level 139 mmol/L (136-145)
[2022-09-18 08:13] VITALS: O2SAT 91; O2SAT 93
[2022-09-18] MEDS: Ramipril 10 MG Capsule PO (09:13)
[2022-09-18] MEDS: Carvedilol 12.5 MG Tablet PO (09:13)
--- NOTE | 2022-09-18 10:32 | CASEMGMT ---
BHARAT VALERO Follow-up: Noted pt's O2 qualification testing does not demonstrate a need for increased O2 from baseline 3l/min. Pt notified. Face to face with pt to discuss ability to afford Trelegy Ellipta. Pt states this was $900 and so she has been using Breo which has one less ingredient and costs her $200. Pt states she has been using this consistently at home. Pt states she has been a patient of Dr. Drake at [facility] but has not seen him recently. Noted in EMR pt was last seen in his office in 2019 and cancelled appointments in 2020 and 2021. Pt receptive to seeing Dr. Drake again and states she had to cancel previous appointment due to her daughter being ill. Call placed to Dr. Drake's office and VM left requesting return call to schedule appointment if Dr. Drake will still accept her. Pt states she still plans to have her friend picker/puller an O2 tank at home and provide transportation home at discharge. Plan: Home with baseline home O2 BHARAT Larson
[2022-09-18 10:55] VITALS: BP 136/72; PULSE 72; RESP 20; TEMP 36.7; O2SAT 92
[2022-09-18 11:35] VITALS: PULSE 57; RESP 18
--- NOTE | 2022-09-18 11:40 | CASEMGMT ---
BHARAT VALERO Follow-up: Return call received from [facility], appointment scheduled with Monisha Flower NP for 10/18 at 1415. This has been added to pt's discharge instructions. Jacquelin Garcia RN CM
--- NOTE | 2022-09-18 11:43 | DS.PCM_ITS ---
Providers Date of Admission: 09/16/22 Date of Discharge: 09/18/22 Primary Care Physician: Aki Velazquez, JORGE-C Reason For Visit: COPD EXACERBATION Diagnosis Discharge Diagnosis (1) COPD exacerbation: Status: Chronic Code(s): J44.1 - Chronic obstructive pulmonary disease with (acute) exacerbation Plan #Acute on chronic COPD exacerbation * feels her breathing is improving. On her baseline 3L of oxygen * titrate oxygen to maintain sats >90% * breathing treatment with bronchodilators * on IV solumedrol * supposed to be on Trelegy at home but cant afford it. * #CHronic respiratory failure * on 3L of oxygen, which is her baseline. * breathing treatment with bronchodilators * titrate oxygen to maintain sats >90% * #Hypertension; on Coreg and ramipril. IV hydralazine prn #Hyperlipidemia: on statin #Thrombocytopenia: chronic. Has had thrombocytopenia since March 2022. Will will monitor Anxiety and depression; apparently not on any meds. TO follow up with PCP on outpatient basis DVT prophylaxis: lovenox Medications at Discharge Home Medications albuterol sulfate 90 mcg/actuation aerosol inhaler 1 - 2 puff inhalation Q4H PRN Sob &/Or Wheezing 02/01/19 carvedilol 12.5 mg tablet 12.5 mg PO BID blood pressure 02/01/19 ipratropium 0.5 mg-albuterol 3 mg (2.5 mg base)/3 mL nebulization soln 3 ml inhalation Q6H.RT PRN Sob &/Or Wheezing 02/01/19 multivitamin 1 cap PO DAILY SUPPLEMENT 08/17/20 omega-3 fatty acids 1,000 mg PO BID SUPPLEMENT 08/17/20 atorvastatin 20 mg tablet 20 mg PO QHS HLD 03/25/22 fluticasone furoate 100 mcg-vilanterol 25 mcg/dose inhalation powder (Breo Ellipta) 1 inh inhalation DAILY #60 ea 03/25/22 ipratropium 0.5 mg-albuterol 3 mg (2.5 mg base)/3 mL nebulization soln 3 ml inhalation Q6H PRN shortness of breath or wheezing #180 mL 03/25/22 ramipril 10 mg capsule 10 mg PO DAILY HTN 03/25/22 ramipril 2.5 mg tablet 2.5 mg PO DAILY HTN 03/25/22 aspirin 81 mg tablet,delayed release (Adult Aspirin Regimen) 81 mg PO DAILY [facility] 09/16/22 prednisone 20 mg tablet 40 mg (2 x 20 mg) PO DAILY #10 tabs 09/18/22 Hospital Course Operations None Procedures None Summary of Care Provided Minutes Spent on Discharge: 47 Hospital Course: Patient is a 67-year-old male with a past medical history as outlined was admitted through the ED on 09/16/2022 with complaint of worsening shortness of breath for about 48 hours prior to admission. He had associated pleuritic chest pain with coughing. Initially improved with albuterol but subsequently worsened. He had no fever or chills. She was found to be wheezing on admission. She was post to be on Trelegy at home but could not afford it so had not been using it. EKG showed no acute ST changes and chest x-ray showed no acute cardiopulmonary findings. She was admitted and managed for COPD exacerbation. She was placed on IV Solu-Medrol and breathing treatments bronchodilators. Shortness of breath gradually improved and she came down to her baseline 3 L of oxygen. She had walking pulse ox on the day of discharge which showed that she remained at her baseline 3 L of oxygen did not require any more oxygen. She remained stable and was discharged home on 09/18/2022. She is follow-up with her primary care doctor and pulmonology within 1 to 2 weeks. Patient seen and examined prior to discharge. She had no active complaints and had an uneventful night. Review of symptoms otherwise negative. Labs and vitals reviewed. Medication reviewed on consult. Physical Exam Const alert, oriented x3 and no apparent distress General Appearance: cooperative, comfortable and well kempt HEENT normocephalic, head/scalp atraumatic, hearing grossly normal bilaterally, moist oral mucous membranes and oropharynx normal Mouth: oral and palatal mucosa normal Eyes PERRL, EOMs intact bilaterally and conjunctivae normal Neck no lymphadenopathy, supple and no JVD Lymph Lymphatic: no lymphadenopathy noted and no lymphedema noted Resp Resp Narrative: diminished breath sounds Cardio regular rate, regular rhythm, S1 normal heart sound, S2 normal heart sound and no murmurs GI normal to inspection, nondistended, normoactive bowel sounds, soft to palpation and non-tender Extremity normal capillary refill, no clubbing, cyanosis or edema and no calf tenderness Skin General Skin Exam: no breakdown Neuro oriented x3, CN's II-XII intact bilaterally, moves all extremities, no focal motor deficits, no sensory deficits noted and deep tendon reflexes 2+ bilaterally Sensorium / Orientation: awake and alert Motor Exam: strength 5/5 throughout and general weakness Psych thought process normal, cooperative and affect normal Appearance: appropriate Weight / BMI Weight Weight: 134 lb 0.657 oz Body Mass Index (BMI) 26.2 ABG / Lab / Microbiology Data 09/18/22 06:30 09/18/22 06:30 Laboratory: Laboratory Results - last 24 hr 09/18/22 06:30: WBC 14.4 H, RBC 4.54, Hgb 14.8, Hct 46.3, MCV 102.0 H, MCH 32.6 H, MCHC 32.0, RDW Std Deviation 45.2 H, RDW Coeff of [place] 12.0, Plt Count 149 L, MPV 11.7, Immature Gran % (Auto) 0.700, Neut % (Auto) 92.6 H, Lymph % (Auto) 4.9 L, [place] % (Auto) 1.7, Eos % (Auto) 0.0, Baso % (Auto) 0.1, Absolute Neuts (auto) 13.3 H, Absolute Lymphs (auto) 0.71 L, Nucleated RBC % 0, Sodium 139, Potassium 3.9, Chloride 97 L, Carbon Dioxide 39.0 H, Anion Gap 3 L, BUN 23 H, Creatinine 1.11 H, Estim Creat Clear Calc 36.29, Est GFR (MDRD) Af Amer 63, Est GFR (MDRD) Non-Af 52 L, BUN/Creatinine Ratio 20.7 H, Glucose 165 H, Calcium 9.4 Microbiology: Microbiology 09/17/22 20:00 Sputum, Expectorated/Coughed Gram Stain - Final 09/16/22 22:08 Mucosa - Nasopharyngeal Respiratory Panel (PCR) - Final D/C Instructions Discharge Diet: Low fat / Low cholesterol Discharge Activity: Return to Normal Activity Weight Bearing Status: Weight bearing as tolerated Call your doctor if you observe: Fever of 101 or Higher, Shortness of breath, Dizziness, Swelling in the ankles and Chest pain Meaningful Use Info Meaningful Use Diagnoses (Choose all that apply): None applicable Discharge Plan Admission Admit Date/Time: 09/16/22 21:50 Primary Reason for Your Visit: COPD exacerbation Attending Provider: Tessy Vincent Primary Care Provider: Aki Velazquez MEDICAL TECHNICIAN Consulting Providers: Angelic Wood Instructions Patient Instructions: Discharge Instructions: COPD, COPD: Using Inhalers Discharge Orders/Prescriptions Prescriptions: New prednisone 20 mg tablet 40 mg PO DAILY Qty: 10 0RF Continued carvedilol 12.5 MG tablet 12.5 mg PO BID Patient Comments: TAKE 1 TABLET BY MOUTH TWICE DAILY FOR HYPERTENSION ipratropium-albuterol 3 ML solution for nebulization 3 ml inhalation Q6H.RT PRN (Reason: Sob &/Or Wheezing) albuterol sulfate 18 GM HFA aerosol inhaler 1 - 2 puff inhalation Q4H PRN (Reason: Sob &/Or Wheezing) Patient Comments: INHALE 2 PUFFS BY MOUTH EVERY 4 HOURS NEEDED multivitamin Capsule 1 cap PO DAILY omega-3 fatty acids Capsule 1,000 mg PO BID atorvastatin 20 mg tablet 20 mg PO QHS ramipril 2.5 mg Tablet 2.5 mg PO DAILY ramipril 10 mg capsule 10 mg PO DAILY ipratropium-albuterol 0.5 mg-3 mg(2.5 mg base)/3 mL solution for nebulization 3 ml inhalation Q6H PRN (Reason: shortness of breath or wheezing) Qty: 180 1RF fluticasone furoate-vilanterol [Breo Ellipta] 100-25 mcg/dose blister with device 1 inh inhalation DAILY Qty: 60 2RF aspirin [Adult Aspirin Regimen] 81 mg tablet,delayed release (DR/EC) 81 mg PO DAILY Referrals / Follow Up: Monisha Wolfe NP, MEDICAL TECHNICIAN-C [Med Staff - [facility] Prof] - 10/18/22 2:15 pm Aki Velazquez NP, MEDICAL TECHNICIAN-C [Primary Care Provider] - Within 1 Week Disposition Disposition (needs filled in before D/C Order can be placed): Home, Self Care Charges/Coding Visit Charges Inpatient E&M: 60213 Disch Hosp >30min
--- NOTE | 2022-09-18 11:43 | DCINST_ITS ---
Discharge Instructions Diet Discharge Diet: Low fat / Low cholesterol Activity Discharge Activity: Return to Normal Activity Weight Bearing Status: Weight bearing as tolerated Dressing / Incision Call your doctor if you observe: Fever of 101 or Higher, Shortness of breath, Dizziness, Swelling in the ankles and Chest pain Follow Up Care Test Results: Test results from this visit will be discussed in further detail at your follow- up appointment, if applicable. Discharge Plan Admission Admit Date/Time: 09/16/22 21:50 Primary Reason for Your Visit: COPD exacerbation Attending Provider: Tessy Vincent Primary Care Provider: Aki Velazquez NP Consulting Providers: Angelic Wood Instructions Patient Instructions: Discharge Instructions: COPD, COPD: Using Inhalers Discharge Orders/Prescriptions Prescriptions: New prednisone 20 mg tablet 40 mg PO DAILY Qty: 10 0RF Continued carvedilol 12.5 MG tablet 12.5 mg PO BID Patient Comments: TAKE 1 TABLET BY MOUTH TWICE DAILY FOR HYPERTENSION ipratropium-albuterol 3 ML solution for nebulization 3 ml inhalation Q6H.RT PRN (Reason: Sob &/Or Wheezing) albuterol sulfate 18 GM HFA aerosol inhaler 1 - 2 puff inhalation Q4H PRN (Reason: Sob &/Or Wheezing) Patient Comments: INHALE 2 PUFFS BY MOUTH EVERY 4 HOURS NEEDED multivitamin Capsule 1 cap PO DAILY omega-3 fatty acids Capsule 1,000 mg PO BID atorvastatin 20 mg tablet 20 mg PO QHS ramipril 2.5 mg Tablet 2.5 mg PO DAILY ramipril 10 mg capsule 10 mg PO DAILY ipratropium-albuterol 0.5 mg-3 mg(2.5 mg base)/3 mL solution for nebulization 3 ml inhalation Q6H PRN (Reason: shortness of breath or wheezing) Qty: 180 1RF fluticasone furoate-vilanterol [Breo Ellipta] 100-25 mcg/dose blister with device 1 inh inhalation DAILY Qty: 60 2RF aspirin [Adult Aspirin Regimen] 81 mg tablet,delayed release (DR/EC) 81 mg PO DAILY Referrals / Follow Up: Monisha Wolfe NP, FORM SETTER/DRIVER-C [Med Staff - Adv Practice Prof] - 10/18/22 2:15 pm Aki Velazquez NP, FORM SETTER/DRIVER-C [Primary Care Provider] - Within 1 Week Disposition Disposition (needs filled in before D/C Order can be placed): Home, Self Care
--- NOTE | 2022-09-18 12:10 | PHA.DC_ITS ---
Pharmacy [facility] has performed discharge medication reconciliation and counseling for this patient. Patient requested meds to beds, this [facility] called retail and requested delivery. Confirmed patient takes both strengths of ramipril. 1. PREDNISONE 40MG PO DAILY X 5 DAYS The patient's discharge medication list was reviewed for discrepancies and discrepancies were resolved. The patient was counseled on the following discharge medications and changes in medications for homegoing were reviewed. The Reason for Use, instructions for use, and potential side effects were reviewed for all new medications. The patient's questions regarding all of their medications were answered. The patient was able to verbally demonstrate an understanding of their discharge medications. Patient counseled by dean of student servicesLynette. Medications at Discharge Home Medications albuterol sulfate 90 mcg/actuation aerosol inhaler 1 - 2 puff inhalation Q4H PRN Sob &/Or Wheezing 02/01/19 carvedilol 12.5 mg tablet 12.5 mg PO BID blood pressure 02/01/19 ipratropium 0.5 mg-albuterol 3 mg (2.5 mg base)/3 mL nebulization soln 3 ml inhalation Q6H.RT PRN Sob &/Or Wheezing 02/01/19 multivitamin 1 cap PO DAILY SUPPLEMENT 08/17/20 omega-3 fatty acids 1,000 mg PO BID SUPPLEMENT 08/17/20 atorvastatin 20 mg tablet 20 mg PO QHS HLD 03/25/22 fluticasone furoate 100 mcg-vilanterol 25 mcg/dose inhalation powder (Breo Ellipta) 1 inh inhalation DAILY #60 ea 03/25/22 ipratropium 0.5 mg-albuterol 3 mg (2.5 mg base)/3 mL nebulization soln 3 ml inhalation Q6H PRN shortness of breath or wheezing #180 mL 03/25/22 ramipril 10 mg capsule 10 mg PO DAILY HTN 03/25/22 ramipril 2.5 mg tablet 2.5 mg PO DAILY HTN 03/25/22 aspirin 81 mg tablet,delayed release (Adult Aspirin Regimen) 81 mg PO DAILY [facility] 09/16/22 prednisone 20 mg tablet 40 mg (2 x 20 mg) PO DAILY #10 tabs 09/18/22
[2022-09-19 10:28] LABS: Pathologist Review Reviewed
== END 2022-09-18 13:05 | disposition home or self-care (01) | DRG 191 ==
LOC: ED 21:54 → MS3 22:51
PROVIDERS: Admitting Provider Family Medicine; Emergency Provider Emergency Medicine; PCP Nurse Practitioner Family; Visit Provider Student in an Organized Health Care Education/Training Program
DX: J44.1 Chronic obstructive pulmonary disease with (acute) exacerbation (principal); J96.11 Chronic respiratory failure with hypoxia; Z99.81 Dependence on supplemental oxygen; E78.00 Pure hypercholesterolemia, unspecified; I10 Essential (primary) hypertension; T48.6X6A Underdosing of antiasthmatics, initial encounter; Z91.120 Patient's intentional underdosing of medication regimen due to financial hardship; Z79.82 Long term (current) use of aspirin; Z79.899 Other long term (current) drug therapy; Z87.891 Personal history of nicotine dependence
CPT/HCPCS: 36415; 71046; 80048; 80053; 83880; 84145; 84484; 85025; 87070; 87077; 87186; 87205; 87633; 93005; 94640; 94668; 94762; 99285; A4216; J2405

== ENCOUNTER 2022-10-29 10:59 | Emergency (ER) | payer OTHER, SELFPAY ==
[2022-10-29] VITALS (9 sets, daily range): BP systolic 76–197; BP diastolic 34–104; PULSE 32–88; RESP 14–32; TEMP 36.4; O2SAT 97–100; BMI 29.8
--- NOTE | 2022-10-29 11:05 | ED.RN ---
pt. arrives. dr. man at bedside. baltazar rn, prosper rn, rashmi and kristie respiratory. otoniel medic and this nurse at bedside. ems states pt. self extracated dr. man gives orderes for 30 of etomidate, and 100 of rosalino they are on standby 18ga established in rac, [address] man mixes his own epi drip. 2ml given at 1110 1111: 174/112, 34 hr, 100%, 16 rr 1113: hr dropped to 24 dr. man pushes 2ml more of epi mix
--- NOTE | 2022-10-29 11:19 | ED.RN ---
1118: epi drip started. 1119: no pulse found cod blue started cpr started 1120: epi given 1123: epi given. 1124 pulse check- pulse found bicarb in. hr 34, 100%, bp 1125 etomidate is given, 1126 rosalino given. 1127: dr. man intubates 22@lip, 1128: epi drip increased to 10 1130: 167/104, hr 82, 100%
--- NOTE | 2022-10-29 11:20 | NURSING ---
CODE BLUE CALLED
--- NOTE | 2022-10-29 11:33 | EKG12_ITS ---
Test Reason : Blood Pressure : / mmHG Vent. Rate : 039 BPM Atrial Rate : 020 BPM P-R Int : 182 ms QRS Dur : 150 ms QT Int : 650 ms P-R-T Axes : 082 -85 096 degrees QTc Int : 523 ms Critical Test Result: Low HR , Arrhythmia SINUS BRADYCARDIA, WITH HIGH GRADE AV BLOCK Left axis deviation Non-specific intra-ventricular conduction block Minimal voltage criteria for LVH, may be normal variant ( Ashby product ) Lateral infarct , age undetermined Abnormal ECG Confirmed by KY HUI, ROMI ([id number]), web editor ODELL YAO ([id number]) on 11/04/2022 2:17:44 PM Referred By: Confirmed By:VANDANA MCPHERSON MD
--- NOTE | 2022-10-29 11:34 | ED.RN ---
1134: temp diaz placed 1135: og placed 18g 1136: stat chest xray called
--- NOTE | 2022-10-29 11:36 | EKG12_ITS ---
Test Reason : ARREST Blood Pressure : / mmHG Vent. Rate : 024 BPM Atrial Rate : 024 BPM P-R Int : 148 ms QRS Dur : 144 ms QT Int : 570 ms P-R-T Axes : 069 127 096 degrees QTc Int : 360 ms Critical Test Result: Low HR , Arrhythmia Marked sinus bradycardia with occasional Premature ventricular complexes in a pattern of bigeminy Right bundle branch block T wave abnormality, consider lateral ischemia Abnormal ECG Confirmed by KY HUI, ROMI ([id number]), news videotape editor ODELL YAO ([id number]) on 11/05/2022 10:08:46 AM Referred By: ZOE Confirmed By:VANDANA MCPHERSON MD
--- NOTE | 2022-10-29 11:38 | CM.ED ---
Social Work SW attempted to contact patient's daughter/JOSE R Gottlieb, phone went straight to . SW left a instructing her to return call or present to [facility] ED. Kristin SHAH, BRANDON
--- NOTE | 2022-10-29 11:47 | ED.RN ---
1147: whlie getting ekg, pt. lost pulse. cpr initiated 1148: epi given, 1150:1 bicarb given, pulse check. pulse found per dr. man, bp 109/76, rr16, 100% hr 93.
--- NOTE | 2022-10-29 11:47 | NURSING ---
CODE BLUE CALLED
--- NOTE | 2022-10-29 11:50 | RAD_ITS ---
STUDY: X-RAY CHEST REASON FOR EXAM: Female, 67 years old. ETT UBE, OG PLACEMENT TECHNIQUE: Single AP portable view of the chest. COMPARISON: Comparison is made with prior study dated September 16, 2022. FINDINGS: An endotracheal tube is in situ. The tip is at 3.8 sinus proximal to the enrique. The tip of the orogastric tube is in the upper aspect of the body of the stomach. EKG electrodes are seen as well as a patulous from the fibular device. Hyperinflation. Blunting of both concerning angles. Findings suggestive of a mild degree of vascular congestion. Normal size heart. Normal mediastinum and jak. Normal visualized pulmonary arteries. There is atherosclerotic calcification of the aortic arch with tortuosity. There are degenerative changes of the visualized thoracic spine. Questionable left-sided rib fractures with a small amount of subcutaneous emphysema. Clinical correlation recommended. There is no demonstrated abnormality of the visualized soft tissue structures of the upper abdomen. RAD/Chest 1 View IMPRESSION: The support tubes are in good position. Mild degree of CHF with blunting of both costophrenic angles. Possible left lateral rib fractures with subcutaneous emphysema. Electronically Signed: Blake Hair MD at 12:35 EDT ,
[2022-10-29 11:57] LABS: Hematocrit 15.2 % (37-47); Mean Corp Hgb Conc 28.3 g/dL (32-36); Mean Corpuscular Hgb 32.6 pg (27.0-32.0); Mean Corpuscular Volume 115.2 fL (81-99); Mean Platelet Vol. 11.5 fl (6.2-12.0); POSITIVE COUNT YES; POSITIVE MORPHOLOGY YES; RBC Distribution Width CV 11.9 % (11.6-14.6); RBC Distribution Width SD 48.1 fl (35.1-43.9); Red Blood Count 1.32 M/mm3 (4.2-5.4); White Blood Count 3.3 K/mm3 (4.4-11.0)
--- NOTE | 2022-10-29 11:57 | ED.RN ---
1158: kristie rt draws abg when searching. pt pulse stops again. cpr started epi given. bp 142/74, 99, 88 hr 1200: pulse check. no pulse. cpr continue. 1201: epi given. 1202: pulse check, dr. man finds pulse. 1203: hr 68, 02 100%
[2022-10-29 11:59] LABS: Bacteria 0 SEEN /hpf (None Seen); Mucous, Urine 0 SEEN /hpf (<or=2+)
[2022-10-29 12:00] LABS: Color, Urine Yellow (Yellow); Glucose, Dipstick Normal (Normal); Ketone-Dipstick Negative (Negative); Leukocyte Esterase-Dipstick Negative /ul (Negative); Nitrite-Dipstick Negative (Negative); Occult Blood-Urine 250 /ul (Negative); Protein-Dipstick 30 mg/dl (Negative); Urine Bilirubin Dipstick Negative (Negative); Urine Clarity Clear (Clear); Urine Urobilinogen Normal (Normal)
--- NOTE | 2022-10-29 12:00 | CM.ED ---
Social Work Per Po HIGHTOWER, patient's Aunt and niece have been contacted and instructed to present to ED. Patient's daughter, Bull, is currently at [facility] in recovery from hip surgery. SW met with patient's sister, niece and friend and introduced self and role as [facility] SW. Emotional support provided. Kristin Ojeda MSW, BRANDON
[2022-10-29 12:01] LABS: International Normalized Ratio 1.2; Partial Thromboplast Time 36.2 Seconds (24.1-36.2); Prothrombin Time (Protime)PT. 14.9 SECONDS (11.7-14.9)
[2022-10-29 12:04] LABS: Hemoglobin 4.3 g/dL (12.0-15.0); Platelet Count 44 K/mm3 (150-450)
[2022-10-29 12:05] LABS: Differential Indicated MANUAL DIFF
[2022-10-29 12:06] LABS: Red Blood Cells-Urine > 100 SEEN /hpf (0-5); Squamous Epithelial Cells - UA 0-5 SEEN /hpf (5-10); White Blood Cells 0 SEEN /hpf (0-5)
[2022-10-29 12:10] LABS: AST(SGOT) 89 U/L (15-37); Alanine Aminotransfer ALT/SGPT 95 U/L (13-56); Albumin, Serum 2.7 g/dL (3.2-5.0); Alkaline Phosphatase 114 U/L (45-117); Anion Gap 4 (5-15); BUN 14 mg/dL (7-18); BUN/Creat Ratio 12.3 RATIO (10-20); Bilirubin, Direct 0.13 mg/dL (0.00-0.30); Calcium,Total 8.7 mg/dL (8.5-10.1); Chloride 106 mmol/L (98-107); Creatinine, Serum 1.14 mg/dL (0.55-1.02); EST Glomerular Filtration Rate 51 mL/min (>60); Est Glom Filt Rate - Afr Amer 61 mL/min (>60); Estimated Creatinine Clearance 35.34 ml/min; Globulin 3.2 g/dL (2.2-4.2); Glucose 171 mg/dL (74-106); Potassium 3.7 mmol/L (3.5-5.1); Protein, Total 5.9 g/dL (6.4-8.2); Sodium Level 143 mmol/L (136-145); Troponin-I HS 77 pg/mL (3.0-54.0)
[2022-10-29 12:18] LABS: Amphetamine Urine VISTA NEGATIVE (<1000 ng/mL); Barbiturate Urine VISTA NEGATIVE (< 200 ng/mL); Benzodiazepine Urine VISTA NEGATIVE (< 200 ng/mL); Cocaine Urine VISTA NEGATIVE (< 300 ng/mL); Ecstacy Urine VISTA NEGATIVE (< 500 ng/mL); Methadone Urine VISTA NEGATIVE (< 300 ng/mL); PCP Urine VISTA NEGATIVE (< 25 ng/mL); THC Urine VISTA NEGATIVE (< 50 ng/mL); Vista UDS pH Range 5
--- NOTE | 2022-10-29 12:21 | NURSING ---
FAXED FACE SHEET
--- NOTE | 2022-10-29 12:24 | NURSING ---
[facility] CALLED ETA 20 MINUTES
[2022-10-29 12:27] LABS: Base Excess -2 mmol/L (-2 to +2); Bicarbonate 24.2 mmol/L (22-26); Blood Gas Specimen Type ART; Mode Not entered; O2 Delivery Device Not entered; PO2 451 mmHG (75-100); SITE Not entered; SO2 100 % (95-99); Total Carbon Dioxide 26 mmol/L
--- NOTE | 2022-10-29 12:42 | ED.RN ---
1242pt back from bolt labeler. pulse check upon arrival. pt has no pulse. cpr started. 1244: pulse check no pulse. epi given. 1246: pulse check no pulse: bi carb given. 1247: epi given. 1248: pulse check: pulse found. txa done trauma blood put on pump
--- NOTE | 2022-10-29 12:47 | NURSING ---
CODE BLUE CALLED
[2022-10-29] MEDS: Epinephrine (1 mg/ml) 1 MG in 0.9% Normal Saline (250mL Bag) 250 ML 15.1 MG CONT INF (12:52)
[2022-10-29] MEDS: 0.9% Normal Saline (1000mL) 1,000 ML 999 ML IV (12:53)
[2022-10-29] MEDS: TRANEXAMIC ACID 1,000 MG in 0.9% Normal Saline (100mL Bag) 100 ML 440 MG IV ×2 (12:54→13:07)
[2022-10-29] MEDS: 0.9% Normal Saline (1000mL) 1,000 ML 100 ML IV (12:55)
--- NOTE | 2022-10-29 12:55 | ED.RN ---
dr. man speaks with [facility] upon arrival. dr. man states ordering another trauma blood, pelvic binder, and and increase epi to 15
--- NOTE | 2022-10-29 13:01 | ED.RN ---
pt being paced at [address] gross
[2022-10-29 13:02] LABS: Lymphocyte 40 % (19-41); Metamyelocyte 2 % (0-1); Monocyte 2 % (0-10); Neutrophil-Band 1 % (0-5); Neutrophil-Segmented 55 % (47-70); Platelet Estimate MKD DEC (ADEQ); Red Cell Morphology NORM C+C NORMAL (NORM C&C); Total Cells Counted 100 (MANUAL DIFF)
[2022-10-29 13:03] LABS: Absolute Neutrophil Count 1.8 X10^3/uL (2.0-7.7)
[2022-10-29] MEDS: Norepinephrine 8 MG in 0.9% Normal Saline (250mL Bag) 242 ML 9.4 MG CONT INF (13:36)
--- NOTE | 2022-10-29 13:39 | ED.RN ---
alessandra in room, noticed not ventilating well. after further look. dr. phillips puts a 28 comoran chest tube.
[2022-10-29 13:40] LABS: Bedside Glucose 126 mg/dL (74-106)
[2022-10-29 13:41] LABS: Blood Gas Specimen Type VEN; O2 Delivery Device Adult Vent; PEEP 8; RR 10; SITE Not entered; VBG BASE EXCESS 2 mmol/L (-1.0-3.5); VBG Bicarbonate 28 mmol/L (22-26); VBG PO2 16 mmHg (25-40); VBG SO2 16 % (50-70); VBG TCO2 30 mmol/L (23-33); VBG pCO2 61.8 mmHg (41-51); VBG pH 7.27 (7.32-7.42)
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
--- NOTE | 2022-10-29 14:16 | PCM.OPRPT ---
Problems Associated Problem List Diagnoses (1) Complete heart block: (2) Cardiac arrest: Report of Operation Date of Procedure: 10/29/22 Pre-Operative Diagnosis: Cardiac arrest, complete heart block Post-Operative Diagnosis: Cardiac arrest, complete heart block Surgery/Procedure Performed:: Temporary transvenous pacemaker placement Description of Procedure: Right common femoral vein access was obtained and sheath was inserted. Patient went into PEA and was resuscitated per ACLS protocol. She had return of spontaneous circulation and a balloontipped transvenous pacemaker was inserted and positioned in the RV. It was set at a rate of 80 and current of 5 MA. There was good capture. The sheath and pacemaker wire were secured and the patient was transferred back to the emergency room. Conclusion: Successful temporary transvenous pacemaker placement. Complications None
--- NOTE | 2022-10-29 14:21 | ED.RN ---
pt report tried attempt to metro. no answer.
--- NOTE | 2022-10-29 14:23 | ED.RN ---
ryne ugalde [phone] esteban pope [phone] sister
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
[2022-10-31 09:52] LABS: Pathologist Review Reviewed
== END 2022-10-29 14:09 | disposition short-term general hospital (02) ==
LOC: ED 11:21
PROVIDERS: Emergency Provider Emergency Medicine; PCP Nurse Practitioner Family; Visit Provider Emergency Medicine
DX: I46.9 Cardiac arrest, cause unspecified (principal); J44.9 Chronic obstructive pulmonary disease, unspecified; J96.11 Chronic respiratory failure with hypoxia; I44.2 Atrioventricular block, complete; T79.4XXA Traumatic shock, initial encounter; E78.00 Pure hypercholesterolemia, unspecified; S27.0XXA Traumatic pneumothorax, initial encounter; S22.42XA Multiple fractures of ribs, left side, initial encounter for closed fracture; V47.5XXA Car driver injured in collision with fixed or stationary object in traffic accident, initial encounter; I10 Essential (primary) hypertension; Z99.81 Dependence on supplemental oxygen; Z79.82 Long term (current) use of aspirin; Z79.899 Other long term (current) drug therapy; Z87.891 Personal history of nicotine dependence
CPT/HCPCS: 32551; 99285; 31500; 31720; 33210; 36430; 71045; 80048; 80076; 80307; 81001; 82803; 82962; 84484; 85025; 85610; 85730; 86850; 86900; 86901; 86920; 92950; 92953; 93005; 94002; 96365; 96366; 96367; 96375; 99252; 99291; J7030; J7040; J7050; P9016; A4216; C1894; G0463; J0612